=== PATIENT | female | born 1930 | race Caucasian/White ===

== ENCOUNTER 2016-05-21 08:06 | Inpatient (IN) | payer OTHER ==
[~2016-05-21] VITALS: Ht 152.4 cm; Wt 68.1 kg
[2016-05-21] MEDS ORDERED: SODIUM CHLORIDE 0.9% 1000ML 1,000 ML IV STA (08:13)
--- NOTE | 2016-05-21 08:30 | EMERGENCY ROOM VISIT NOTE ---
History Report prepared by Roby: Shira Almeida Under the Supervision of: Dr. Jerome Rosario M.D. First contact with patient: 08:08 Stated Complaint: AMS/HYPOTHERMIA History of Present Illness The patient is a 85 year old female who presents to the Emergency Room via EMS with complaints of hypothermia occurring today. The patient is blind and demented. She has a caregiver who takes care of her during the day but she is alone at night. She was last seen at baseline at 12 am this morning. She went out of the house at some point after her caregiver left. She was found outside. As per family, the patient is normally completely confused. Her grandson last saw her at the house around 12 am this morning. The patient normally does not leave the house by herself. This is the first time she has left the house by herself. Her rectal temperature in the Emergency Room was 31.9 degrees Celsius. HPI is limited secondary to history of dementia. Additional history is obtained as per Emergency Room nursing staff and family. Source of History: patient, family History Limited By: dementia Onset: today Position: other (global) Quality: other (hypothermia) Review of Systems ROS is limited secondary to history of dementia. Past Medical & Surgical Medical Problems: (1) Blind (2) Dementia (3) Diastolic congestive heart failure (4) Hypothermia Family History Diabetes mellitus Heart disease Social History Marital Status: Housing Status: lives alone Occupation Status: retired Current/Historical Medications Scheduled Furosemide (Lasix), 20 MG PO BID Potassium Chloride (Micro-K Ext Rel), 10 MEQ PO BID Allergies Coded Allergies: Penicillins (Verified Allergy, Unknown, 05/21/16) Physical Exam Vital Signs Date Time Temp Pulse Resp B/P Pulse Ox O2 Delivery O2 Flow Rate FiO2 05/21/16 11:36 35.2 67 16 121/56 100 Nasal Cannula 05/21/16 11:17 34.9 72 20 135/49 100 Nasal Cannula 2.0 05/21/16 11:05 34.6 89 18 117/61 95 Nasal Cannula 2.0 05/21/16 10:38 34.0 74 20 109/79 96 Room Air 05/21/16 10:20 33.6 62 25 94 05/21/16 10:15 136/64 05/21/16 10:05 33.3 67 25 96 05/21/16 10:01 131/69 05/21/16 09:50 32.9 71 26 97 05/21/16 09:49 32.9 05/21/16 09:45 150/88 05/21/16 09:36 33.4 35 05/21/16 09:30 129/69 05/21/16 09:21 33.0 72 21 95 05/21/16 09:15 147/80 05/21/16 09:06 32.7 71 21 98 05/21/16 09:03 148/78 05/21/16 09:03 32.8 65 20 148/78 100 Room Air 05/21/16 08:44 84 05/21/16 08:36 32.0 73 26 99 05/21/16 08:18 31.8 123 20 119/84 100 Room Air 05/21/16 08:16 119/84 Physical Exam GENERAL: Patient is disoriented, confused, nonsensical verbal. SKIN: No cyanosis or rash. Bruises on the right foot, lateral medial malleolus, right knee, end of her nose. Significant erythema under both breasts and right groin. HEENT: Normal head, pupils equal, reactive to light and accommodation. Ears normal. Oral cavity and posterior pharynx appear normal. Neck: Without adenopathy, no neck vein distention. LUNGS: Clear to auscultation. No wheezes, no rales, no rhonchi. HEART: No murmurs. No gallops. No rubs ABDOMEN: Soft, nontender. No masses, no rebound, no hepatomegaly or splenomegaly. EXTREMITIES: Patient has some pain with movement of either leg. No pedal or pretibial edema. No calf or thigh tenderness. NEUROLOGIC: Cranial nerves II-XII within normal limits. No gross motor sensory function deficits. Medical Decision & Procedures ER Provider Diagnostic Interpretation: X-ray results as stated below per my interpretation and radiologist interpretation. CT results as stated below per my review and radiologist interpretation: CT OF THE CERVICAL SPINE CLINICAL HISTORY: Neck pain status post trauma COMPARISON STUDY: 12/14/2011 CT DOSE: TECHNIQUE: CT scan of the cervical spine was performed from the skull base to the thoracic inlet. Images are reviewed in the axial, sagittal, and coronal planes. IV contrast was not administered for this examination. FINDINGS: The visualized portions of the lung apices reveal no evidence of pneumothorax. The prevertebral soft tissues are normal. No fractures or subluxations are visualized. There are multilevel degenerative changes. 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 IMPRESSION: No evidence of acute fracture or traumatic subluxation. Electronically signed by: Gonzalez Bates M.D. 05/21/2016 9:05 AM Dictated Date/Time: 05/21/2016 9:02 AM CHEST ONE VIEW PORTABLE CLINICAL HISTORY: Fall. COMPARISON STUDY: Chest radiograph December 14, 2011. FINDINGS: A right shoulder arthroplasty is noted. Mild elevation of the right hemidiaphragm is unchanged. Moderate cardiomegaly is unchanged. There is no evidence of pulmonary edema. There is no consolidation to suggest pneumonia. Hazy left basilar opacity is unchanged and may reflect epicardial fat pad. IMPRESSION: No acute cardiopulmonary findings. No change in appearance of the chest. Electronically signed by: Roverto Guillen M.D. 05/21/2016 9:00 AM Dictated Date/Time: 05/21/2016 8:[address] OF THE HEAD WITHOUT CONTRAST CLINICAL HISTORY: Fall. Altered mental status. COMPARISON STUDY: Head CT December 14, 2011. CT DOSE: 1115.95 mGy.cm TECHNIQUE: Helical axial images of the head were obtained without IV contrast. Automated exposure control was utilized for the study. FINDINGS: No acute intracranial hemorrhage, midline shift or mass effect is present. Ventricular system is stable. Basilar cisterns are patent. There are no extra axial collections. Moderate white matter hypodensities suggest small vessel disease. There are no findings to suggest acute dural sinus thrombosis or acute territorial infarct. There is no calvarial fracture. IMPRESSION: 1. No acute intracranial findings. 2. No calvarial fracture. 3. Study mildly compromised by motion artifact. Electronically signed by: Roverto Guillen M.D. 05/21/2016 9:06 AM Dictated Date/Time: 05/21/2016 9:02 AM LEFT KNEE 1 OR 2 VIEWS ROUTINE CLINICAL HISTORY: Left knee pain status post trauma COMPARISON: None. DISCUSSION: There are moderate osteophytic changes. No acute fractures are visualized. There are no dislocations. There is quadriceps insertional calcification at the superior patellar level. There is a small dorsal patellar spur. There are vascular calcifications. IMPRESSION: Mild degenerative change. No acute fractures. Electronically signed by: Gonzalez Bates M.D. 05/21/2016 9:02 AM Dictated Date/Time: 05/21/2016 9:02 AM RIGHT KNEE 1 OR 2 VIEWS ROUTINE CLINICAL HISTORY: Right knee pain status post trauma COMPARISON: None. DISCUSSION: There are moderate osteoarthritic changes present with narrowing medial joint compartment. No acute fractures are visualized. There is a tiny dorsal patellar spur. IMPRESSION: Osteoarthritic changes. No acute fractures identified. Electronically signed by: Gonzalez Bates M.D. 05/21/2016 9:01 AM Dictated Date/Time: 05/21/2016 9:00 AM Laboratory Results 05/21/16 08:25 Red Blood Count 5.06, Mean Corpuscular Volume 91.5, Mean Corpuscular Hemoglobin 30.4, Mean Corpuscular Hemoglobin Concent 33.3, Mean Platelet Volume 12.0, Neutrophils (%) (Auto) 81.8, Lymphocytes (%) (Auto) 11.7, Monocytes (%) (Auto) 5.5, Eosinophils (%) (Auto) 0.3, Basophils (%) (Auto) 0.1, Neutrophils # (Auto) 20.23, Lymphocytes # (Auto) 2.90, Monocytes # (Auto) 1.36, Eosinophils # (Auto) 0.08, Basophils # (Auto) 0.03 05/21/16 08:25 Test 05/21/16 08:25 05/21/16 09:30 White Blood Count 24.74 K/uL (4.8-10.8) Red Blood Count 5.06 M/uL (4.2-5.4) Hemoglobin 15.4 g/dL (12.0-16.0) Hematocrit 46.3 % (37-47) Mean Corpuscular Volume 91.5 fL (80-100) Mean Corpuscular Hemoglobin 30.4 pg (25-34) Mean Corpuscular Hemoglobin Concent 33.3 g/dl (32-36) Platelet Count 257 K/uL (130-400) Mean Platelet Volume 12.0 fL (7.4-10.4) Neutrophils (%) (Auto) 81.8 % Lymphocytes (%) (Auto) 11.7 % Monocytes (%) (Auto) 5.5 % Eosinophils (%) (Auto) 0.3 % Basophils (%) (Auto) 0.1 % Neutrophils # (Auto) 20.23 K/uL (1.4-6.5) Lymphocytes # (Auto) 2.90 K/uL (1.2-3.4) Monocytes # (Auto) 1.36 K/uL (0.11-0.59) Eosinophils # (Auto) 0.08 K/uL (0-0.5) Basophils # (Auto) 0.03 K/uL (0-0.2) RDW Standard Deviation 52.6 fL (36.4-46.3) RDW Coefficient of Variation 15.8 % (11.5-14.5) Immature Granulocyte % (Auto) 0.6 % Immature Granulocyte # (Auto) 0.14 K/uL (0.00-0.02) Spherocytes 1+ Prothrombin Time 11.2 SECONDS (9.0-12.0) Prothromb Time International Ratio 1.0 (0.9-1.1) Activated Partial Thromboplast Time 24.4 SECONDS (21.0-31.0) Partial Thromboplastin Ratio 0.9 Anion Gap 13.0 mmol/L (3-11) Est Creatinine Clear Calc Drug Dose 31.0 ml/min Estimated GFR () 52.3 Estimated GFR (Non- 45.1 BUN/Creatinine Ratio 17.5 (10-20) Calcium Level 8.7 mg/dl (8.5-10.1) Total Bilirubin 0.4 mg/dl (0.2-1) Aspartate Amino Transf (AST/SGOT) 22 U/L (15-37) Alanine Aminotransferase (ALT/SGPT) 17 U/L (12-78) Alkaline Phosphatase 109 U/L (45-117) Total Protein 7.8 gm/dl (6.4-8.2) Albumin 3.6 gm/dl (3.4-5.0) Globulin 4.2 gm/dl (2.5-4.0) Albumin/Globulin Ratio 0.9 (0.9-2) Thyroid Stimulating Hormone (TSH) 5.380 uIu/ml (0.300-4.500) Urine Color YELLOW Urine Appearance CLEAR (CLEAR) Urine pH 5.0 (4.5-7.5) Urine Specific Glover 1.013 (1.000-1.030) Urine Protein NEG (NEG) Urine Glucose (UA) TRACE (NEG) Urine Ketones TRACE (NEG) Urine Occult Blood TRACE (NEG) Urine Nitrite POS (NEG) Urine Bilirubin NEG (NEG) Urine Urobilinogen NEG (NEG) Urine Leukocyte Esterase TRACE (NEG) Urine WBC (Auto) 1-5 /hpf (0-5) Urine RBC (Auto) 0-4 /hpf (0-4) Urine Hyaline Casts (Auto) 1-5 /lpf (0-5) Urine Epithelial Cells (Auto) 5-10 /lpf (0-5) Urine Bacteria (Auto) 4+ (NEG) Laboratory results as stated above per my review. Medications Administered Medications (Trade) Dose Ordered Sig/Macy Route Start Time Stop Time Status Last Admin Dose Admin Sodium Chloride (Nss 1000ml) 1,000 ml @ 300 mls/hr Q3H20M STAT IV 05/21/16 08:13 05/21/16 11:32 DC 05/21/16 08:13 300 MLS/HR ECG Indication: other (Hypothermia) Rate (beats per minute): 75 Rhythm: sinus rhythm Findings: nonspecific-ST abn, no ectopy, other (Artifact due to shaking) ED Course 0808: Past medical records reviewed. The patient was evaluated in room B01. A complete history and physical examination was performed. The patient's rectal temperature was 31.9 degrees Celsius. 0813: Sodium Chloride 1000 ml @ 300 mls/hr IV 1042: Upon reevaluation, the patient is doing better. I discussed today's findings with the patient's family. They verbalized agreement of the treatment plan. I spoke with Dr. Santiago of the [facility] to evaluate the patient for further management. Medical Decision Differential diagnosis includes but is not limited to hypothermia, fall, closed head injury, multiple fractures, multiple contusions. Multiple labs, EKG, imaging were obtained. Please see above. The patient was monitored closely and had a rectal probe for close temperature monitoring. Her core temperature did slowly rise. White count is markedly elevated. The patient may have an early urinary tract infection. She is multiple contusions but no definite fractures. The patient has long-standing dementia. The patient will require further evaluation in the hospital. I discussed care with the patient and multiple family members. I also discussed care with the hospitalist. Consults Time Called: 1040 Consulting Physician[facility] Returned Call: [address] Santiago of the [facility] Hospitalist Service to evaluate the patient for further management. Impression Primary Impression: Hypothermia Additional Impressions: Altered mental status Leukocytosis Elevated troponin Hypothyroid Scribe Attestation The scribe's documentation has been prepared under my direction and personally reviewed by me in its entirety. I confirm that the note above accurately reflects all work, treatment, procedures, and medical decision making performed by me. Departure Information Dispostion Being Evaluated By Hospitalist Referrals Alyx Mahmood, NavarroR.N.P (PCP) Problem Qualifiers
[2016-05-21 08:41] LABS: HEMATOCRIT 46.3 % (37-47); MEAN CELL VOLUME 91.5 fL (80-100); MEAN CORPUSCULAR HEMOGLOBIN 30.4 pg (25-34); MEAN CORPUSCULAR HGB CONC 33.3 g/dl (32-36); PLATELET COUNT 257 K/uL (130-400); RED BLOOD COUNT 5.06 M/uL (4.2-5.4); WHITE BLOOD COUNT 24.74 K/uL (4.8-10.8)
[2016-05-21 08:53] LABS: PARTIAL THROMBOPLASTIN RATIO 0.9; PROTHROMBIN TIME (PATIENT) 11.2 SECONDS (9.0-12.0)
[2016-05-21 08:58] LABS: BUN/CREATININE RATIO 17.5 (10-20); CALCIUM 8.7 mg/dl (8.5-10.1); CREATININE 1.1 mg/dl (0.60-1.20); POTASSIUM 4.1 mmol/L (3.5-5.1)
--- NOTE | 2016-05-21 09:01 | DIAGNOSTIC IMAGING REPORT ---
CHEST ONE VIEW PORTABLE CLINICAL HISTORY: Fall. COMPARISON STUDY: Chest radiograph December 14, 2011. FINDINGS: A right shoulder arthroplasty is noted. Mild elevation of the right hemidiaphragm is unchanged. Moderate cardiomegaly is unchanged. There is no evidence of pulmonary edema. There is no consolidation to suggest pneumonia. Hazy left basilar opacity is unchanged and may reflect epicardial fat pad. IMPRESSION: No acute cardiopulmonary findings. No change in appearance of the chest. Electronically signed by: Roverto Guillen M.D. 05/21/2016 9:00 AM Dictated Date/Time: 05/21/2016 8:57 AM
--- NOTE | 2016-05-21 09:03 | DIAGNOSTIC IMAGING REPORT ---
LEFT KNEE 1 OR 2 VIEWS ROUTINE CLINICAL HISTORY: Left knee pain status post trauma COMPARISON: None. DISCUSSION: There are moderate osteophytic changes. No acute fractures are visualized. There are no dislocations. There is quadriceps insertional calcification at the superior patellar level. There is a small dorsal patellar spur. There are vascular calcifications. IMPRESSION: Mild degenerative change. No acute fractures. Electronically signed by: Gonzalez Bates M.D. 05/21/2016 9:02 AM Dictated Date/Time: 05/21/2016 9:02 AM
--- NOTE | 2016-05-21 09:03 | DIAGNOSTIC IMAGING REPORT ---
RIGHT KNEE 1 OR 2 VIEWS ROUTINE CLINICAL HISTORY: Right knee pain status post trauma COMPARISON: None. DISCUSSION: There are moderate osteoarthritic changes present with narrowing medial joint compartment. No acute fractures are visualized. There is a tiny dorsal patellar spur. IMPRESSION: Osteoarthritic changes. No acute fractures identified. Electronically signed by: Gonzalez Bates M.D. 05/21/2016 9:01 AM Dictated Date/Time: 05/21/2016 9:00 AM
--- NOTE | 2016-05-21 09:07 | DIAGNOSTIC IMAGING REPORT ---
CT OF THE HEAD WITHOUT CONTRAST CLINICAL HISTORY: Fall. Altered mental status. COMPARISON STUDY: Head CT December 14, 2011. CT DOSE: 1115.95 mGy.cm TECHNIQUE: Helical axial images of the head were obtained without IV contrast. Automated exposure control was utilized for the study. FINDINGS: No acute intracranial hemorrhage, midline shift or mass effect is present. Ventricular system is stable. Basilar cisterns are patent. There are no extra axial collections. Moderate white matter hypodensities suggest small vessel disease. There are no findings to suggest acute dural sinus thrombosis or acute territorial infarct. There is no calvarial fracture. IMPRESSION: 1. No acute intracranial findings. 2. No calvarial fracture. 3. Study mildly compromised by motion artifact. Electronically signed by: Roverto Guillen M.D. 05/21/2016 9:06 AM Dictated Date/Time: 05/21/2016 9:02 AM
--- NOTE | 2016-05-21 09:07 | DIAGNOSTIC IMAGING REPORT ---
CT OF THE CERVICAL SPINE CLINICAL HISTORY: Neck pain status post trauma COMPARISON STUDY: 12/14/2011 CT DOSE: TECHNIQUE: CT scan of the cervical spine was performed from the skull base to the thoracic inlet. Images are reviewed in the axial, sagittal, and coronal planes. IV contrast was not administered for this examination. FINDINGS: The visualized portions of the lung apices reveal no evidence of pneumothorax. The prevertebral soft tissues are normal. No fractures or subluxations are visualized. There are multilevel degenerative changes. 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 IMPRESSION: No evidence of acute fracture or traumatic subluxation. Electronically signed by: Gonzalez Bates M.D. 05/21/2016 9:05 AM Dictated Date/Time: 05/21/2016 9:02 AM
[2016-05-21 09:18] LABS: ALB/GLOB RATIO 0.9 (0.9-2); THYROID STIMULATING HORMONE 5.38 uIu/ml (0.300-4.500)
[2016-05-21 09:28] LABS: BASO % 0.1 %; BASO ABS # 0.03 K/uL (0-0.2); COMPLETE YES; EOS % 0.3 %; IG% 0.6 %; LYMPH % 11.7 %; MONO % 5.5 %; NEUT % 81.8 %; SPHEROCYTE 1+
[2016-05-21 09:44] LABS: MANUAL MICROSCOPIC REQUIRED? NO; REVIEW REQ? NO; URINE APPEARANCE CLEAR (CLEAR); URINE BILIRUBIN NEG (NEG); URINE COLOR YELLOW; URINE NITRITE POS (NEG); URINE SPECIFIC GRAVITY 1.013 (1.000-1.030); UROBILINOGEN NEG (NEG); ZZURINE CULT IF INDIC CATH YES
[2016-05-21] MEDS ORDERED: POLYETHYLENE (MIRALAX) 17 GM PACK PO PRN (11:45)
[2016-05-21] MEDS ORDERED: ALUMINUM/MAGNESIUM/SIMETH (MAALOX MAX) 30 ML UDC PO PRN (11:45)
[2016-05-21] MEDS ORDERED: MAGNESIUM HYDROXIDE SUSP 30 ML UDC PO PRN (11:45)
[2016-05-21] MEDS ORDERED: ONDANSETRON INJ 2 MG/ML 2 ML VIAL IV PRN (11:45)
[2016-05-21] MEDS: SODIUM CHLORIDE 0.9% 1000ML 1,000 ML IV SCH (12:00)
--- NOTE | 2016-05-21 12:31 | History and Physical ---
History & Physical Date & Time of Service: May 21, 2016 at 12:02 Chief Complaint: Ams/Hypothermia Primary Care Physician: Alyx Mahmood C.R.N.P History of Present Illness Source: family, hospital records Ms. Guallpa is a 85-year-old female with past medical history of diastolic congestive heart failure, moderate aortic stenosis, blindness, and dementia who presents to the emergency department by EMS for hypothermia. History of present illness obtained by family members at bedside and ED notes due to dementia. Patient lives at home with daytime caregivers and grandson who sleeps there at night. Patient was last seen at normal mentation at approximately midnight. She was found at 7 AM outside in [facility] and barefooted. She was laying on her right side on the road. Per family she has never wandered outside of the home at night. Her family baseline mentation is largely nonverbal with intermittent screaming of "ouch" and "what", but does not conversation. Family states she is usually oriented to self only. Family feels that she is currently at normal baseline mentation. Family states that she has been eating and drinking well at home. She is incontinent of urine. Family states she commonly has abnormal urinalysis however usually does not grow bacteria. Reports last urinary tract infection was approximately 1 year ago. She follows with Dr. Jackson for her diastolic congestive heart failure. Review of systems deferred as patient is nonverbal. Mild agitation appreciated during exam with blood pressure cuff. Otherwise, patient appears in no acute distress. In the ED, she was initiated on warm fluids and tiff hugger. Her initial temperature was 31.8 Celsius at 8 AM and has improved to 35.2 at 11:[address] of the head without acute intracranial processes. EKG reveals normal sinus rhythm and notes ST and T-wave abnormalities suggesting lateral ischemia however largely artifact. Initial troponin at 0.144. Significant laboratories show a WBC of 24.74. Urinalysis is positive for nitrites and 4+ bacteria. She will be admitted to telemetry for hypothermia and further evaluation and care. Past Medical/Surgical History Medical Problems: (1) Blind (2) Dementia (3) Diastolic congestive heart failure (4) Hypothermia Medical Problems: (1) Blind Status: Chronic (2) Dementia Status: Chronic Family History Diabetes mellitus Heart disease Social History Smoking Status: Unknown if Ever Smoked Smokeless Tobacco Use: No Alcohol Use: none Drug Use: none Marital Status: Occupational Status: retired Multi-Drug Resistant Organisms History of MDRO: No Allergies Coded Allergies: Penicillins (Verified Allergy, Unknown, 05/21/16) Home Medications Scheduled Furosemide (Lasix), 20 MG PO BID Potassium Chloride (Micro-K Ext Rel), 10 MEQ PO BID Review of Systems Review of systems deferred due to advanced dementia. See history of present illness. Physical Exam Vital Signs Date Time Temp Pulse Resp B/P Pulse Ox O2 Delivery O2 Flow Rate FiO2 05/21/16 11:36 35.2 67 16 121/56 100 Nasal Cannula 05/21/16 11:17 34.9 72 20 135/49 100 Nasal Cannula 2.0 05/21/16 11:05 34.6 89 18 117/61 95 Nasal Cannula 2.0 05/21/16 10:38 34.0 74 20 109/79 96 Room Air 05/21/16 10:20 33.6 62 25 94 05/21/16 10:15 136/64 05/21/16 10:05 33.3 67 25 96 05/21/16 10:01 131/69 05/21/16 09:50 32.9 71 26 97 05/21/16 09:49 32.9 05/21/16 09:45 150/88 05/21/16 09:36 33.4 35 05/21/16 09:30 129/69 05/21/16 09:21 33.0 72 21 95 05/21/16 09:15 147/80 05/21/16 09:06 32.7 71 21 98 05/21/16 09:03 148/78 05/21/16 09:03 32.8 65 20 148/78 100 Room Air 05/21/16 08:44 84 05/21/16 08:36 32.0 73 26 99 05/21/16 08:18 31.8 123 20 119/84 100 Room Air 05/21/16 08:16 119/84 General Appearance: WD/WN, no apparent distress Head: normocephalic, atraumatic Eyes: sclerae normal Neck: supple, no JVD, trachea midline Respiratory/Chest: normal breath sounds, no respiratory distress, no accessory muscle use, + decreased breath sounds Cardiovascular: regular rate, rhythm, no gallop, + systolic murmur Abdomen/GI: normal bowel sounds, non tender, soft Extremities/Musculoskelatal: no pedal edema, + pertinent finding (Right toes black with small lacerations appreciated; distal pulses present per doppler) Neurologic/Psych: alert Skin: + pallor Diagnostics Laboratory Results Results Past 24 Hours Test 05/21/16 08:25 05/21/16 09:30 05/21/16 10:46 Range/Units White Blood Count 24.74 4.8-10.8 K/uL Red Blood Count 5.06 4.2-5.4 M/uL Hemoglobin 15.4 12.0-16.0 g/dL Hematocrit 46.3 37-47 % Mean Corpuscular Volume 91.5 80-100 fL Mean Corpuscular Hemoglobin 30.4 25-34 pg Mean Corpuscular Hemoglobin Concent 33.3 32-36 g/dl Platelet Count 257 130-400 K/uL Mean Platelet Volume 12.0 7.4-10.4 fL Neutrophils (%) (Auto) 81.8 % Lymphocytes (%) (Auto) 11.7 % Monocytes (%) (Auto) 5.5 % Eosinophils (%) (Auto) 0.3 % Basophils (%) (Auto) 0.1 % Neutrophils # (Auto) 20.23 1.4-6.5 K/uL Lymphocytes # (Auto) 2.90 1.2-3.4 K/uL Monocytes # (Auto) 1.36 0.11-0.59 K/uL Eosinophils # (Auto) 0.08 0-0.5 K/uL Basophils # (Auto) 0.03 0-0.2 K/uL RDW Standard Deviation 52.6 36.4-46.3 fL RDW Coefficient of Variation 15.8 11.5-14.5 % Immature Granulocyte % (Auto) 0.6 % Immature Granulocyte # (Auto) 0.14 0.00-0.02 K/uL Spherocytes 1+ Prothrombin Time 11.2 9.0-12.0 SECONDS Prothromb Time International Ratio 1.0 0.9-1.1 Activated Partial Thromboplast Time 24.4 21.0-31.0 SECONDS Partial Thromboplastin Ratio 0.9 Sodium Level 142 136-145 mmol/L Potassium Level 4.1 3.5-5.1 mmol/L Chloride Level 104 98-107 mmol/L Carbon Dioxide Level 25 21-32 mmol/L Anion Gap 13.0 3-11 mmol/L Blood Urea Nitrogen 19 7-18 mg/dl Creatinine 1.10 0.60-1.20 mg/dl Est Creatinine Clear Calc Drug Dose 31.0 ml/min Estimated GFR () 52.3 Estimated GFR (Non- 45.1 BUN/Creatinine Ratio 17.5 10-20 Random Glucose 216 70-99 mg/dl Calcium Level 8.7 8.5-10.1 mg/dl Total Bilirubin 0.4 0.2-1 mg/dl Aspartate Amino Transf (AST/SGOT) 22 15-37 U/L Alanine Aminotransferase (ALT/SGPT) 17 12-78 U/L Alkaline Phosphatase 109 45-117 U/L Troponin I 0.144 0-0.045 ng/ml Total Protein 7.8 6.4-8.2 gm/dl Albumin 3.6 3.4-5.0 gm/dl Globulin 4.2 2.5-4.0 gm/dl Albumin/Globulin Ratio 0.9 0.9-2 Thyroid Stimulating Hormone (TSH) 5.380 0.300-4.500 uIu/ml Urine Color YELLOW Urine Appearance CLEAR CLEAR Urine pH 5.0 4.5-7.5 Urine Specific [place] 1.013 1.000-1.030 Urine Protein NEG NEG Urine Glucose (UA) TRACE NEG Urine Ketones TRACE NEG Urine Occult Blood TRACE NEG Urine Nitrite POS NEG Urine Bilirubin NEG NEG Urine Urobilinogen NEG NEG Urine Leukocyte Esterase TRACE NEG Urine WBC (Auto) 1-5 0-5 /hpf Urine RBC (Auto) 0-4 0-4 /hpf Urine Hyaline Casts (Auto) 1-5 0-5 /lpf Urine Epithelial Cells (Auto) 5-10 0-5 /lpf Urine Bacteria (Auto) 4+ NEG Creatine Kinase MB Ratio 0-3.0 Microbiology Results 05/21/16 Urine Culture, Received Pending Diagnostic Radiology CT OF THE HEAD WITHOUT CONTRAST CLINICAL HISTORY: Fall. Altered mental status. COMPARISON STUDY: Head CT December 14, 2011. CT DOSE: 1115.95 mGy.cm TECHNIQUE: Helical axial images of the head were obtained without IV contrast. Automated exposure control was utilized for the study. FINDINGS: No acute intracranial hemorrhage, midline shift or mass effect is present. Ventricular system is stable. Basilar cisterns are patent. There are no extra axial collections. Moderate white matter hypodensities suggest small vessel disease. There are no findings to suggest acute dural sinus thrombosis or acute territorial infarct. There is no calvarial fracture. IMPRESSION: 1. No acute intracranial findings. 2. No calvarial fracture. 3. Study mildly compromised by motion artifact. CHEST ONE VIEW PORTABLE CLINICAL HISTORY: Fall. COMPARISON STUDY: Chest radiograph December 14, 2011. FINDINGS: A right shoulder arthroplasty is noted. Mild elevation of the right hemidiaphragm is unchanged. Moderate cardiomegaly is unchanged. There is no evidence of pulmonary edema. There is no consolidation to suggest pneumonia. Hazy left basilar opacity is unchanged and may reflect epicardial fat pad. IMPRESSION: No acute cardiopulmonary findings. No change in appearance of the chest. EKG Poor data quality, interpretation may be adversely affected Normal sinus rhythm ST & T wave abnormality, consider lateral ischemia Abnormal ECG When compared with ECG of 14-DEC-2011 13:27, Premature ventricular complexes are no longer Present T wave inversion less evident in Lateral leads Impression Assessment and Plan Ms. Guallpa is a 85-year-old female with past medical history of diastolic congestive heart failure, moderate aortic stenosis, blindness, and dementia who presents to the emergency department by EMS for hypothermia. Hypothermia: - Continue bairhugger and fluid warmer with NSS at 80 mL/hr - Rectal temperature Q1H - When temperature at 36C may D/C fluid warmer and maintain fluids at 80 mL/hr Rhabdomyolysis?: 2/2 Fall - CK pending will reevaluate Urinary Tract Infection: - Ceftriaxone 1 g IV daily - Urine culture pending Elevated Troponin: - Initial troponin 0.144 - Run serial cardiac enzymes Chronic Diastolic Congestive Heart Failure: - Hold Lasix - Echocardiogram - pending - Consider cardiology consult - follows with Dr. Jackson DVT Prophylaxis: - SCDs Code Status: FULL RESUSCITATION WITHOUT INTUBATION ATTENDING ATTESTATION I have seen and examined patient this am. I have discussed plan of care in detail with VILMA and agree with plan as stated above. Patient is a 85 y.o.F PMHx of dementia and blindness who was brought in by family after being found down outside the door of her home. On admission temperature was noted to be 30.0. Patient is non- verbal. Per family patient is at baseline mental status. Patient temperature currently 36.6 Vitals-reviewed GEN- NAD CVS-RRR RESP-CTA ABD-+BS EXT- no edema Labs-reviewed Hypothermia Dementia UTI - start ceftriaxone/await urine culture - IVF hydration - fall precaution Level of Care Telemetry Resuscitation Status FULL NO MECH VENTILATION VTE Prophylaxis VTE Risk Assessment Done? Y/N: Yes Risk Level: Moderate Given or contraindicated: SCD's
[2016-05-21 12:39] LABS: CKMB/CK RATIO 1.9 (0-3.0)
[2016-05-21 13:31] VITALS: BP 136/51; PULSE 76; TEMP 36.5; O2SAT 93
[2016-05-21] MEDS ORDERED: CEFTRIAXONE SOD INJ 1 GM in DEXTROSE 5% ADD-VANTAGE 50ML 50 ML IV SCH (14:00)
[2016-05-21 15:31] VITALS: O2SAT 92; Ht 152.4 cm; Wt 68.1 kg
[2016-05-21 16:29] VITALS: BP 103/47; PULSE 63; TEMP 37.1; O2SAT 92
[2016-05-21] MEDS: ACETAMINOPHEN 325 MG TAB PO PRN (17:15)
[2016-05-21] MEDS ORDERED: PERFLUTREN LIPID MICROSPHERE (DEFINITY) IV ONE (17:24)
--- NOTE | 2016-05-21 17:55 | ECHOCARDIOGRAM REPORT ---
*NOTICE TO RECEIVING LIBERTARIAN AGENCY This information is strictly Confidential and protected under [place] law. [place] law prohibits you from making any further disclosure of this information unless further disclosure is expressly permitted by the written consent of the person to whom it pertains or is authorized by law. A general authorization for the release of medical or other information is not sufficient for this purpose. Hospital accepts no responsibility if the information is made available to any other person, INCLUDING THE PATIENT. Interpretation Summary * Name: TAHIR JORDAN Study Date: 05/21/2016 03:33 PM BP: 136/51 mmHg * Patient Location: [facility] HR: 76 * : 1930 (M/d/yyyy) Gender: Female Height: 60 in * Age: 85 yrs Ethnicity: [place] Weight: 149 lb * Ordering Physician: Marilu Beebe PA-C * Performed By: Jory Orellana RDCS * * Reason For Study: Murmurs * BSA: 1.6 m2 * Hyperdynamic left ventricular systolic function. * Left ventricular hypertrophy. * Left ventricular diastolic dysfunction. * Mild left atrial dilatation. * Probable moderate to severe aortic stenosis. * Mild tricuspid regurgitation. * Normal estimated right heart pressures. Procedure Details * A complete two-dimensional transthoracic echocardiogram was performed (2D, M-mode, Doppler and color flow Doppler). * A contrast injection of Definity was performed to improve assessment of LV function. * Contrast was injected into an intravenous site in the left arm. * One vial of Definity ultrasound contrast was diluted in normal saline to a total volume of 10 ml. A total of '2' ml of solution was administered during imaging. * Lot # [id number] of Definity utilized for procedure. * Expiration date 1 MAY 08. * The attending nurse who injected the contrast agent was Estephania Bui RN. Left Ventricle * The left ventricle is normal in size. * Mild left ventricular hypertrophy except for severe basal septal hypertrophy. * Ejection Fraction = >70 %. * The left ventricle is hyperdynamic. * A full diastolic examination was done with clinical findings of Class I diastolic dysfunction. * No regional wall motion abnormalities noted. Right Ventricle * The right ventricle is grossly normal size. * The right ventricle is not well visualized. * The right ventricular systolic function is normal. Atria * The left atrium is mildly dilated. * Right atrium not well visualized. Mitral Valve * There is severe mitral annular calcification. * There is no mitral valve stenosis. * Significant mitral regurgitation is absent. Tricuspid Valve * The tricuspid valve is not well visualized, but is grossly normal. * There is mild tricuspid regurgitation. * Right ventricular systolic pressure is normal. Aortic Valve * On 2D imaging the aortic valve is calcified and has at least moderate stenosis. The doppler exam of the valve was limited. The measured velocity and mean gradient reported are lower than would be expected. These values underestimate the true stenosis of the valve. * Moderate to severe valvular aortic stenosis. * Trace aortic regurgitation. Pulmonic Valve * The pulmonic valve is not well visualized. * The pulmonary valve is inadequately visualized, but the Doppler data is adequate for interpretation. * There is no pulmonic valvular stenosis. * There is no significant pulmonary regurgitation. Great Vessels * The aortic root is normal size. Pericardium/Pleural * There is no pericardial effusion. Great Vessels * Normal inferior vena cava diameter and respiratory variation suggests normal central venous pressure. MMode 2D Measurements and Calculations IVSd 1.3 cm LVIDd 4.0 cm LVIDs 2.2 cm LVPWd 0.91 cm IVS/LVPW 1.4 FS 45.3 % EDV(Teich) 70.5 ml ESV(Teich) 16.1 ml EF(Teich) 77.1 % EDV(cubed) 64.6 ml ESV(cubed) 10.6 ml EF(cubed) 83.6 % LV mass(C)d 143.3 grams LV mass(C)dI 87.0 grams/m\S\2 SV(Teich) 54.4 ml SI(Teich) 33.0 ml/m\S\2 SV(cubed) 54.0 ml SI(cubed) 32.8 ml/m\S\2 Ao root diam 2.9 cm Ao root area 6.7 cm\S\2 ACS 1.2 cm LA dimension 4.6 cm LA/Ao 1.6 Doppler Measurements and Calculations MV E max nam 90.7 cm/sec MV A max nam 104.8 cm/sec MV E/A 0.87 MV dec time 0.24 sec Ao V2 max 208.1 cm/sec Ao max PG 17.3 mmHg Ao max PG (full) 9.4 mmHg Ao V2 mean 138.8 cm/sec Ao mean PG 8.9 mmHg Ao V2 VTI 41.6 cm LV V1 max PG 7.9 mmHg LV V1 max 140.8 cm/sec SV(Ao) 280.1 ml SI(Ao) 170.1 ml/m\S\2 PA V2 max 84.2 cm/sec PA max PG 2.8 mmHg PA acc slope 349.0 cm/sec\S\2 PA acc time 0.11 sec TR max nam 236.2 cm/sec PA pr(Accel) 31.5 mmHg
[2016-05-21 20:00] VITALS: O2SAT 95
[2016-05-21 20:30] VITALS: BP 102/48; PULSE 56; TEMP 37.4; O2SAT 95
[2016-05-21 21:22] LABS: BUN/CREATININE RATIO 17.8 (10-20); CALCIUM 7.6 mg/dl (8.5-10.1); CKMB/CK RATIO 0.5 (0-3.0); POTASSIUM 4.5 mmol/L (3.5-5.1)
[2016-05-21 23:16] VITALS: BP 92/50; PULSE 64; TEMP 37.3; O2SAT 97
[2016-05-22] VITALS (10 sets, daily range): BP systolic 94–122; BP diastolic 42–57; PULSE 44–57; TEMP 36.9–37.3; O2SAT 93–98
[2016-05-22] MEDS: SODIUM CHLORIDE 0.9% 1000ML 1,000 ML IV SCH ×2 (01:24→13:29)
[2016-05-22] MEDS: ACETAMINOPHEN 325 MG TAB PO PRN (03:32)
[2016-05-22 06:00] LABS: HEMATOCRIT 36.1 % (37-47); MEAN CELL VOLUME 88.7 fL (80-100); MEAN CORPUSCULAR HGB CONC 32.7 g/dl (32-36); PLATELET COUNT 186 K/uL (130-400); RED BLOOD COUNT 4.07 M/uL (4.2-5.4); WHITE BLOOD COUNT 8.63 K/uL (4.8-10.8)
[2016-05-22 06:22] LABS: BUN/CREATININE RATIO 16.3 (10-20); CALCIUM 7.4 mg/dl (8.5-10.1); CREATININE 0.99 mg/dl (0.60-1.20); POTASSIUM 4.2 mmol/L (3.5-5.1)
[2016-05-22] MEDS ORDERED: [UNRECOGNIZED DRUG - REMARK] PRN (10:50)
[2016-05-22] MEDS ORDERED: KFL500 PO (11:26)
--- NOTE | 2016-05-22 11:31 | Discharge Instructions ---
Discharge Instructions Admission Admission Date: May 21, 2016 at 11:50 Admission Diagnosis: Hypothermia. Discharge Care Plan - Problem: Medical Problems: (1) Altered mental status (2) Elevated troponin (3) Hypothermia (4) Hypothyroid (5) Leukocytosis Care Plan - Goal(s): Decrease discomfort, Improve function Care Plan - Instructions: Activity Recommendations: no limitations Recommended Home Diet: DOMINGO 2GM Sodium, Regular Provider Instructions: Please follow up with your PCP in 1 week VTE Core Measure Inpt VTE Proph given/why not?: SCD's Follow Up Follow-Up: Please call [phone] and schedule and appointment with Dr. Bourne of wound care this week Home visiting nursing and wound care will be arranged PAINT BLACK AREAS WITH BETADINE AND APPLY XEROFORM TO OPEN AREAS AND COVER WITH GAUZE AND KERLIX CHANGING DAILY [place] Recommendations: Call your doctor if: * Temperature above 101 degrees * Pain not relieved by pain medicine ordered * There is increased drainage or redness from any incision * You have any unanswered questions or concerns. Your Doctors Instructions noted above were prepared by provider Marilu Robins.
--- NOTE | 2016-05-22 12:41 | CARDIOLOGY CONSULTATION ---
DATE OF CONSULTATION: 05/22/2016 DATE OF CONSULTATION: 05/22/2016. PERTINENT HISTORY: Mrs. Guallpa is an 85-year-old white female admitted yesterday with hypothermia. This consultation was ordered to assist in her cardiac management. The patient was in her usual state of health until the day of presentation. She had been seen at midnight on her day of presentation by a grandson who stays at her home. She was then found at 7 a.m. outside in her pajamas and barefooted. Temperature on arrival here was 31.8 degrees Celsius. The patient did demonstrate some sinus bradycardia during her initial time in the Emergency Room. The patient is well known to me from the outpatient setting. I have been following her because of her moderate aortic stenosis and her history of diastolic congestive heart failure. At the time of her last visit in January, we opted to perform no further echocardiograms as she was not an operative candidate due to her profound and progressive dementia. Currently, the patient is resting comfortably in bed. Her family is at the bedside. PAST MEDICAL HISTORY: 1. Hypertension. 2. Hypercholesterolemia. 3. Moderate aortic stenosis -- 1.5 cm2 -- nonoperative candidate. 4. History of diastolic congestive heart failure. 5. Progressive dementia. 6. Legal blindness. MEDICATIONS: Ceftriaxone 1 gram IV daily. ALLERGIES: PENICILLIN. SOCIAL HISTORY: The patient is a . She lives at home, but has 24-hour care. Does not use tobacco or alcohol. FAMILY HISTORY: No early coronary artery disease. REVIEW OF SYSTEMS: Unobtainable due to patient's dementia. PHYSICAL EXAMINATION: GENERAL: This is a well-developed, well-nourished elderly white female lying supine in bed without complaints. VITAL SIGNS: Blood pressure is 100/60 with a regular pulse of 60. Respiratory rate is 20. The patient is afebrile at 36.9 degrees Celsius. Saturation is 96% on room air. HEAD, EYES, EARS, NOSE, AND THROAT: Negative. NECK: Supple with delayed and prolonged carotid upstrokes. A transmitted murmur is noted bilaterally. There is no jugular venous distention. CARDIOVASCULAR EXAMINATION: Reveals a regular rhythm with a 2/6 crescendo decrescendo systolic murmur heard loudest at the base. S2 is audible at the apex. LUNGS: Clear without rales, rhonchi, or wheezes. ABDOMEN: Soft, nontender without bruits. EXTREMITIES: Reveal intact radial artery pulses bilaterally. Trace pretibial edema is noted. Right lower extremity is dressed. LABORATORY DATA: CBC notes hemoglobin 11.8, hematocrit 36.1, white count 8.6, platelet count 186,000. Electrolytes note a sodium of 144, potassium 4.2, chloride 110, bicarbonate 24, BUN 16, creatinine 0.9, glucose 102. Troponin I levels are mildly elevated at 0.144, 0.701, and 0.984. CKs were 285 on presentation with follow-up values of 1,338, 1,945, and 2,829. MB fractions were 5.5, 13.4, and 9.7 respectively. TSH level is mildly elevated at 5.8. EKG notes normal sinus rhythm with first degree AV block. There is left ventricular hypertrophy and occasional PACs. Echocardiogram notes hyperdynamic left ventricular systolic function with ejection fraction greater than 70%. There is moderate to severe aortic stenosis and left ventricular hypertrophy. alarm security or surveillance monitor notes occasional PACs. IMPRESSION: Mrs. Guallpa was admitted with hypothermia due to an accidental exposure. Her elevated CK is likely secondary to mild rhabdomyolysis. Her elevated troponin is likely secondary to her left ventricular hypertrophy and hyperdynamic systolic function. As above, she is deemed nonoperative, and therefore, we will follow conservative care. PLAN: 1. Continue current medications. 2. No further echocardiograms. 3. Conservative medical care. 4. Stable for hospital discharge from a cardiac perspective.
[2016-05-22] MEDS ORDERED: CEPHALEXIN MONOHYDRATE 500 MG CAP PO SCH (13:00)
--- NOTE | 2016-05-22 17:28 | Discharge Summary ---
Discharge Summary Date of Service May 22, 2016. Discharge Summary Admission Date: May 21, 2016 at 11:50 Discharge Date: May 22, 2016 Discharge Disposition: Home Principal Diagnosis: Hypothermia/Lindquist Bite/UTI Problems/Secondary Diagnoses: Dementia Consultations: Cardiology Medication Reconciliation New Medications: Cephalexin Monohydrate (Cephalexin) 500 Mg Cap 500 MG PO QID for 7 Days, #28 CAP Continued Medications: Furosemide (Lasix) 20 Mg Tab 20 MG PO BID Potassium Chloride (Micro-K Ext Rel) 10 Meq Capcr 10 MEQ PO BID, CAP Discharge Exam Unable to obtain due to dementia Physical Exam: General Appearance: WD/WN, no apparent distress Eyes: normal inspection ENT: normal ENT inspection Neck: supple Respiratory/Chest: chest non-tender Cardiovascular: regular rate, rhythm, no edema Abdomen / GI: normal bowel sounds, non tender, soft Extremities: normal inspection Neurologic/Psychiatric: athletic instructor II-XII nml as tested, no motor/sensory deficits , alert Skin: + pertinent finding Hospital Course Admission HPI Ms. Guallpa is a 85-year-old female with past medical history of diastolic congestive heart failure, moderate aortic stenosis, blindness, and dementia who presents to the emergency department by EMS for hypothermia. History of present illness obtained by family members at bedside and ED notes due to dementia. Patient lives at home with daytime caregivers and grandson who sleeps there at night. Patient was last seen at normal mentation at approximately midnight. She was found at 7 AM outside in [facility] and barefooted. She was laying on her right side on the road. On admission patient fond to be hypothermic and admitted to the hospitalist service Hypothermia: - Continue bairhugger and fluid warmer with NSS at 80 mL/hr - Rectal temperature Q1H - resolved at time of discharge GNR Urinary Tract Infection: - Ceftriaxone 1 g IV daily then switched to keflex at time of discharge - speciation pending at time of discharge Elevated Troponin: - Initial troponin 0.144 - cardiology consulted as pt known to Dr. Jackson - per cardiology suspect 2/2 to hypothermia Bradycardia - per cardiology is baseline - patient not candidate for PPM due to dementia Lindquist bite of 5 digits of right toe - wound care consulted - on discharge patient arranged to have wound care nursing - instructed to call for appt with wound clinic this week Chronic Diastolic Congestive Heart Failure: - Held Lasix - Echocardiogram -done DVT Prophylaxis: - SCDs Code Status: FULL RESUSCITATION WITHOUT INTUBATION Total Time Spent: Greater than 30 minutes This includes examination of the patient, discharge planning, medication reconciliation, and communication with other providers. Discharge Instructions Please refer to the electronic Patient Visit Report (Discharge Instructions) for additional information.
[2016-06-08] MEDS ORDERED: CEPH500C PO (11:04)
[2016-09-24] MEDS ORDERED: POTA10CA28 PO (08:46)
[2016-09-24] MEDS ORDERED: FURO-85 PO (08:46)
== END 2016-05-22 15:21 | disposition home health service (06) | DRG 923 ==
LOC: ENRESERVDT → ENRESERVTM → EDBD 08:06 → C.EDB 08:07 → C.2E 11:50
PROVIDERS: ADMIT Internal Medicine; ATTEND Internal Medicine
DX: T68.XXXA Hypothermia, initial encounter (principal); T33.831A Superficial frostbite of right toe(s), initial encounter; N39.0 Urinary tract infection, site not specified; I50.32 Chronic diastolic (congestive) heart failure; M62.82 Rhabdomyolysis; B96.89 Other specified bacterial agents as the cause of diseases classified elsewhere; R00.1 Bradycardia, unspecified; H54.8 Legal blindness, as defined in USA; E78.00 Pure hypercholesterolemia, unspecified; R79.89 Other specified abnormal findings of blood chemistry; D72.829 Elevated white blood cell count, unspecified; R41.82 Altered mental status, unspecified; I35.0 Nonrheumatic aortic (valve) stenosis; E03.9 Hypothyroidism, unspecified; F03.90 Unspecified dementia, unspecified severity, without behavioral disturbance, psychotic disturbance, mood disturbance, and anxiety; I44.0 Atrioventricular block, first degree; I11.0 Hypertensive heart disease with heart failure; W19.XXXA Unspecified fall, initial encounter; X58.XXXA Exposure to other specified factors, initial encounter; Z79.899 Other long term (current) drug therapy

== ENCOUNTER 2016-05-24 20:48 | Inpatient (IN) | payer OTHER ==
[~2016-05-24] VITALS: Ht 152.4 cm; Wt 66.3 kg
[~2016-05-24 20:48] MED LIST: KFL500 PO
[2016-05-24] MEDS ORDERED: FUROSEMIDE 40 MG/4 ML VIAL IV STA (21:04)
[2016-05-24] MEDS ORDERED: VANCOMYCIN INJ 1,000 MG in SODIUM CHLORIDE 0.9% 250ML 250 ML IV STA (21:21)
--- NOTE | 2016-05-24 21:22 | DIAGNOSTIC IMAGING REPORT ---
SINGLE VIEW CHEST CLINICAL HISTORY: Fall. Change in mental status. FINDINGS: An AP, portable, upright chest radiograph is compared to study dated 05/21/2016. The examination is degraded by portable technique and patient rotation. The heart is mildly enlarged and there is atherosclerotic calcification of the thoracic aorta. The pulmonary vasculature is noncongested. Chronic interstitial thickening and elevation of the right hemidiaphragm are unchanged. No airspace consolidation, pleural effusion, or pneumothorax is seen. The skeletal structures are osteopenic. The bony thorax is grossly intact. A right shoulder arthroplasty is in place. Degenerative change is noted throughout the thoracic spine. IMPRESSION: Cardiac enlargement with no acute cardiopulmonary abnormality. Electronically signed by: Quinn Flynn M.D. 05/24/2016 9:20 PM Dictated Date/Time: 05/24/2016 9:19 PM
[2016-05-24 22:11] LABS: URINE APPEARANCE CLEAR (CLEAR); URINE BILIRUBIN NEG (NEG); URINE COLOR YELLOW; URINE NITRITE NEG (NEG); URINE PH 6.5 (4.5-7.5); URINE SPECIFIC GRAVITY 1.006 (1.000-1.030); UROBILINOGEN NEG (NEG); ZZURINE CULT IF INDIC CATH NO
--- NOTE | 2016-05-24 22:12 | DIAGNOSTIC IMAGING REPORT ---
ULTRASOUND RIGHT LOWER EXTREMITY VENOUS CLINICAL HISTORY: Right leg swelling. COMPARISON STUDY: No priors. TECHNIQUE: Real-time, grayscale, and color Doppler sonography of the deep veins of the right lower extremity was performed from the inguinal crease to the calf. Compression and augmentation were utilized. FINDINGS: There is no sonographic evidence of deep venous thrombosis identified in the right lower extremity. The common femoral, superficial femoral, and popliteal veins are patent and normally compressible. The greater saphenous vein and the profunda femoris vein at the junction with the common femoral vein are clear. The visualized calf veins are patent. IMPRESSION: There is no sonographic evidence of deep venous thrombosis identified in the right lower extremity. Electronically signed by: Quinn Flynn M.D. 05/24/2016 10:10 PM Dictated Date/Time: 05/24/2016 10:10 PM
[2016-05-24 22:16] LABS: MANUAL MICROSCOPIC REQUIRED? NO; REVIEW REQ? NO
[2016-05-24 22:20] LABS: BASO % 0.2 %; BASO ABS # 0.03 K/uL (0-0.2); COMPLETE YES; EOS % 0.8 %; HEMATOCRIT 44.1 % (37-47); IG% 0.4 %; LYMPH % 4.4 %; LYMPH ABS # 0.61 K/uL (1.2-3.4); MEAN CELL VOLUME 90.7 fL (80-100); MEAN CORPUSCULAR HEMOGLOBIN 29.8 pg (25-34); MEAN CORPUSCULAR HGB CONC 32.9 g/dl (32-36); MEAN PLATELET VOLUME 11.7 fL (7.4-10.4); MONO % 7.7 %; NEUT % 86.5 %; PLATELET COUNT 236 K/uL (130-400); RED BLOOD COUNT 4.86 M/uL (4.2-5.4); WHITE BLOOD COUNT 13.93 K/uL (4.8-10.8)
[2016-05-24 22:29] LABS: PROTHROMBIN TIME (PATIENT) 10.7 SECONDS (9.0-12.0)
[2016-05-24 22:30] LABS: POINT OF CARE TROPONIN I 0.1 ng/ml (0-0.045)
[2016-05-24 22:40] LABS: BUN/CREATININE RATIO 12.9 (10-20); CALCIUM 8.3 mg/dl (8.5-10.1)
--- NOTE | 2016-05-24 22:41 | EMERGENCY ROOM VISIT NOTE ---
History Report prepared by Roby: Elvie Lamar Under the Supervision of: Dr. Rene Diaz M.D. First contact with patient: 20:54 Chief Complaint: RESPIRATORY PROBLEMS Stated Complaint: SOB History of Present Illness The patient is a 85 year old female who presents to the Emergency Room with complaints of worsening respiratory problems since yesterday. Per son, the patient had recent exposure to the cold when she wandered outside in the middle of the night 3 days ago. She was admitted for frostbite and hypothermia. She was discharged home 2 days ago. Family noticed that she was wheezing last night. This morning she seemed to be more short of breath than usual. The home health nurse came this morning and listened to her lungs and thought they sounded clear. The patient's son states that her symptoms have worsened throughout the day. He reports a slight cough. He denies fever. The patient is not on oxygen at home. She had frostbite of her right foot and she has some swelling of her right leg that her son states has improved since yesterday. She is currently on Keflex for a UTI. She does not have any history of COPD. Source of History: patient, family (son) History Limited By: dementia Onset: yesterday Position: chest (respiratory) Quality: other (wheezing) Timing: worsening Associated Symptoms: + cough, No fevers Review of Systems Limited ROS secondary to dementia. Past Medical & Surgical Medical Problems: (1) Blind (2) Dementia (3) Diastolic congestive heart failure (4) Hypothermia Family History Diabetes mellitus Heart disease Social History Smoking Status: Never Smoker Drug Use: none Marital Status: Housing Status: lives alone Occupation Status: retired Current/Historical Medications Scheduled Cephalexin Monohydrate (Cephalexin), 500 MG PO QID Furosemide (Lasix), 20 MG PO BID Potassium Chloride (Micro-K Ext Rel), 10 MEQ PO BID Allergies Coded Allergies: Penicillins (Verified Allergy, Unknown, 05/24/16) Physical Exam Vital Signs Date Time Temp Pulse Resp B/P Pulse Ox O2 Delivery O2 Flow Rate FiO2 05/24/16 22:22 77 26 142/69 99 Room Air 05/24/16 21:12 95 Room Air 05/24/16 21:06 95 Room Air 05/24/16 21:00 89 05/24/16 20:53 37.7 90 29 127/78 95 Room Air Physical Exam Constitutional: Vital signs reviewed. Eyes: Conjunctiva are noninjected. ENT: Pharynx is clear without erythema or exudate. Mucous membranes are moist. Neck supple without meningeal signs. Respiratory: Diffuse rhonchi bilaterally. Breath sounds are equal bilaterally. Cardiovascular: Regular rate and rhythm. No rubs or gallops. GI: Soft, nondistended and nontender. Bowel sounds are present. Musculoskeletal: Swelling to the right leg. Erythema and increased warmth to the dorsum of the foot extending up into the lower right leg. Integumentary: No cyanosis. Neurological: The patient is awake and alert. No focal deficits. Psychiatric: Unable to assess. Medical Decision & Procedures ER Provider Diagnostic Interpretation: Radiology results as stated below per my review and the radiologist's interpretation: ULTRASOUND RIGHT LOWER EXTREMITY VENOUS CLINICAL HISTORY: Right leg swelling. COMPARISON STUDY: No priors. TECHNIQUE: Real-time, grayscale, and color Doppler sonography of the deep veins of the right lower extremity was performed from the inguinal crease to the calf. Compression and augmentation were utilized. FINDINGS: There is no sonographic evidence of deep venous thrombosis identified in the right lower extremity. The common femoral, superficial femoral, and popliteal veins are patent and normally compressible. The greater saphenous vein and the profunda femoris vein at the junction with the common femoral vein are clear. The visualized calf veins are patent. IMPRESSION: There is no sonographic evidence of deep venous thrombosis identified in the right lower extremity. Electronically signed by: Quinn Flynn M.D. 05/24/2016 10:10 PM Dictated Date/Time: 05/24/2016 10:10 PM SINGLE VIEW CHEST CLINICAL HISTORY: Fall. Change in mental status. FINDINGS: An AP, portable, upright chest radiograph is compared to study dated 05/21/2016. The examination is degraded by portable technique and patient rotation. The heart is mildly enlarged and there is atherosclerotic calcification of the thoracic aorta. The pulmonary vasculature is noncongested. Chronic interstitial thickening and elevation of the right hemidiaphragm are unchanged. No airspace consolidation, pleural effusion, or pneumothorax is seen. The skeletal structures are osteopenic. The bony thorax is grossly intact. A right shoulder arthroplasty is in place. Degenerative change is noted throughout the thoracic spine. IMPRESSION: Cardiac enlargement with no acute cardiopulmonary abnormality. Electronically signed by: Quinn Flynn M.D. 05/24/2016 9:20 PM Dictated Date/Time: 05/24/2016 9:19 PM Laboratory Results 05/24/16 21:55 Red Blood Count 4.86, Mean Corpuscular Volume 90.7, Mean Corpuscular Hemoglobin 29.8, Mean Corpuscular Hemoglobin Concent 32.9, Mean Platelet Volume 11.7, Neutrophils (%) (Auto) 86.5, Lymphocytes (%) (Auto) 4.4, Monocytes (%) (Auto) 7.7, Eosinophils (%) (Auto) 0.8, Basophils (%) (Auto) 0.2, Neutrophils # (Auto) 12.06, Lymphocytes # (Auto) 0.61, Monocytes # (Auto) 1.07, Eosinophils # (Auto) 0.11, Basophils # (Auto) 0.03 05/24/16 21:55 Test 05/24/16 21:45 05/24/16 21:55 05/24/16 22:11 05/24/16 22:12 Urine Color YELLOW Urine Appearance CLEAR (CLEAR) Urine pH 6.5 (4.5-7.5) Urine Specific [place] 1.006 (1.000-1.030) Urine Protein NEG (NEG) Urine Glucose (UA) TRACE (NEG) Urine Ketones NEG (NEG) Urine Occult Blood NEG (NEG) Urine Nitrite NEG (NEG) Urine Bilirubin NEG (NEG) Urine Urobilinogen NEG (NEG) Urine Leukocyte Esterase NEG (NEG) Urine WBC (Auto) 0 /hpf (0-5) Urine RBC (Auto) 0-4 /hpf (0-4) Urine Hyaline Casts (Auto) 0 /lpf (0-5) Urine Epithelial Cells (Auto) 10-20 /lpf (0-5) Urine Bacteria (Auto) NEG (NEG) White Blood Count 13.93 K/uL (4.8-10.8) Red Blood Count 4.86 M/uL (4.2-5.4) Hemoglobin 14.5 g/dL (12.0-16.0) Hematocrit 44.1 % (37-47) Mean Corpuscular Volume 90.7 fL (80-100) Mean Corpuscular Hemoglobin 29.8 pg (25-34) Mean Corpuscular Hemoglobin Concent 32.9 g/dl (32-36) Platelet Count 236 K/uL (130-400) Mean Platelet Volume 11.7 fL (7.4-10.4) Neutrophils (%) (Auto) 86.5 % Lymphocytes (%) (Auto) 4.4 % Monocytes (%) (Auto) 7.7 % Eosinophils (%) (Auto) 0.8 % Basophils (%) (Auto) 0.2 % Neutrophils # (Auto) 12.06 K/uL (1.4-6.5) Lymphocytes # (Auto) 0.61 K/uL (1.2-3.4) Monocytes # (Auto) 1.07 K/uL (0.11-0.59) Eosinophils # (Auto) 0.11 K/uL (0-0.5) Basophils # (Auto) 0.03 K/uL (0-0.2) RDW Standard Deviation 52.9 fL (36.4-46.3) RDW Coefficient of Variation 15.9 % (11.5-14.5) Immature Granulocyte % (Auto) 0.4 % Immature Granulocyte # (Auto) 0.05 K/uL (0.00-0.02) Prothrombin Time 10.7 SECONDS (9.0-12.0) Prothromb Time International Ratio 1.0 (0.9-1.1) Activated Partial Thromboplast Time 26.8 SECONDS (21.0-31.0) Partial Thromboplastin Ratio 1.0 Anion Gap 13.0 mmol/L (3-11) Est Creatinine Clear Calc Drug Dose 34.6 ml/min Estimated GFR () 58.7 Estimated GFR (Non- 50.6 BUN/Creatinine Ratio 12.9 (10-20) Calcium Level 8.3 mg/dl (8.5-10.1) Alanine Aminotransferase (ALT/SGPT) 39 U/L (12-78) Albumin 3.3 gm/dl (3.4-5.0) Bedside Lactic Acid Venous 3.23 mmol/L (0.90-1.70) Bedside Troponin I 0.100 ng/ml (0-0.045) UB-Zvl-X-Type Natriuretic Peptide 3576 pg/ml (0-1800) Test 05/24/16 22:20 05/24/16 22:33 Laboratory results as reviewed by me. Medications Administered Medications (Trade) Dose Ordered Sig/Macy Route Start Time Stop Time Status Last Admin Dose Admin Furosemide 40 mg 40 mg NOW STAT IV 05/24/16 21:04 05/24/16 21:10 DC 05/24/16 21:32 40 MG Vancomycin HCl/ Sodium Chloride (Vancomycin Inj/ Nss 250ml) 270 ml @ 125 mls/hr NOW STAT IV 05/24/16 21:21 05/24/16 23:30 05/24/16 22:16 125 MLS/HR ECG Indication: SOB/dyspnea Rate (beats per minute): 85 Rhythm: normal sinus Findings: nonspecific-ST abn, no ectopy, other (LVH) ED Course 2054: The patient was evaluated in room B7. A complete history and physical exam was performed. 2103: Lasix 40 mg IV 2120: Vancomycin HCl 1000 mg/Sodium Chloride 270 ml @ 125 mls/hr IV 2156: I reassessed the patient at this time. Lab was in the room drawing blood, and US was at the bedside. 2212: I reassessed the patient. She is doing well. Her labs are pending. I discussed the results and treatment plan with the patient's family. I answered all pertaining questions that they had. They expressed understanding and verbalized agreement. 2232: I spoke with Dr. Paulson. We discussed the patients results and treatment plan. The patient will be evaluated by the [facility] for further management. Medical Decision This is a an 85-year-old female presents with fever and shortness of breath. Differential diagnosis includes pneumonia, sepsis, CHF exacerbation, DVT, cellulitis. I did perform a limited focused review of portions of the patient' s old chart on the electronic medical record. The patient was admitted on May 21 for hypothermia, frostbite, and a UTI. She has a history of diastolic CHF, moderate aortic stenosis, and dementia. Her troponin was elevated at 0.14 at that time. I did evaluate the patient as noted above. I did obtain history from the patient's family due to the patient's dementia. She is presenting with increased respiratory difficulty throughout the day. She is febrile here and appears to have an infection to her right leg where she suffered frostbite on her last admission. IV access was established. The patient was placed on a continuous lead mason tender. She was given Lasix IV. I did order and personally review the patient's 12-lead EKG and chest x-ray as described above. Her chest x-ray does not show any pneumonia or pulmonary edema. Blood cultures were obtained. I did order and review the patient's blood work as noted in the electronic medical record. Her white blood cell count is elevated. Lactic acid is also elevated. Troponin is slightly elevated. I did treat the patient with vancomycin IV. I did order a Doppler ultrasound of the right leg. I did review the images myself as well as the radiology report as described above. There is no evidence of DVT. I did discuss the case with the hospitalist and porter sample case. Consults Time Called: 2220 Consulting Physician: Dr. Paulson Returned Call: [address] Paulson. We discussed the patients results and treatment plan. The patient will be evaluated by the [facility] for further management. Impression Primary Impression: Cellulitis of right leg Additional Impressions: Acute exacerbation of CHF (congestive heart failure) Elevated troponin I level Scribe Attestation The scribe's documentation has been prepared under my direct and personally reviewed by me in its entirety. I confirm that the note above accurately reflects all work, treatment, procedures, and medical decision making performed by me. Departure Information Dispostion Being Evaluated By Hospitalist Referrals Alyx Mahmood, C.R.N.P (PCP) Patient Instructions My [facility] Problem Qualifiers Additional Impressions: Acute exacerbation of CHF (congestive heart failure) Congestive heart failure type: unspecified congestive heart failure type Qualified Codes: I50.9 - Heart failure, unspecified
[2016-05-24 22:43] LABS: ALB/GLOB RATIO 0.8 (0.9-2)
[2016-05-24] MEDS ORDERED: CEFEPIME IV 2,000 MG in DEXTROSE 5% 100ML 100 ML IV STA (23:21)
[2016-05-24] MEDS ORDERED: SODIUM CHLORIDE 0.9% 500ML 500 ML IV STA (23:47)
[2016-05-24] MEDS ORDERED: ACETAMINOPHEN IV 650 MG in EMPTY BAG 0 ML IV STA (23:59)
[2016-05-25] VITALS (14 sets, daily range): BP systolic 101–128; BP diastolic 58–74; PULSE 58–80; TEMP 36.3–38; O2SAT 87–98; Ht 152.4 cm; Wt 66.3 kg
[2016-05-25] MEDS ORDERED: ACETAMINOPHEN IV 650 MG in EMPTY BAG 0 ML IV PRN
[2016-05-25] MEDS ORDERED: ACETAMINOPHEN 1000 MG/100 ML IV IV ONE (00:06)
--- NOTE | 2016-05-25 01:42 | History and Physical ---
History & Physical Date & Time of Service: May 24, 2016 at 23:32 Chief Complaint: SOB Primary Care Physician: Alyx Mahmood C.R.N.P History of Present Illness Source: patient, family (Sons - Sterling and Vincenzo (Lyle), daughter in law (Tara)), hospital records Mrs Guallpa is an 85 year old female with moderate to severe aortic stenosis, dementia, legally blind and diastolic heart failure who presents with 1 day history of shortness of breath, productive cough and altered mental consciousness. She was recently admitted to [facility] from -22 May for frostbite and UTI (Rx with Keflex). On 23 May she started having increasing a productive cough and family heard more rattling in her chest. She was evaluated by the home health nurse the following morning who felt her lungs were clear. However she became more short of breath and wheezy throughout the day and her family noted increased redness of her right lower leg so brought her to the ER. At baseline she is legally blind due to age related macular degeneration (both dry and wet), she walks with a walker, is able to feed herself but has to be helped with where the food is. She is mostly non verbal and says "ouch" when any part of her body is pressed. Her family feel she is currently off her baseline. She lives at home with daytime carers and a grandson who sleeps there at night. There is always someone around with her at home. She is usually incontinent of urine. In the ER she was started on vancomycin for cellulitis of right lower leg. Given Lasix for shortness of breath. US for DVT was negative. She will be admitted to telemetry for cellulitis (failed outpatient treatment with keflex) and sepsis (raised lactic acid) and further evaluation and care. Past Medical/Surgical History Medical Problems: Legally blind - age related macular degeneration Aortic stenosis - conservative management only Frostbite Hypothermia Diastolic congestive heart failure Hypertension Hyperlipidemia Family History Diabetes mellitus Heart disease Social History Smoking Status: Never Smoker Drug Use: none Marital Status: Housing status: lives with family Occupational Status: retired Multi-Drug Resistant Organisms History of MDRO: No Allergies Coded Allergies: Penicillins (Verified Allergy, Unknown, 05/24/16) Home Medications Scheduled Cephalexin Monohydrate (Cephalexin), 500 MG PO QID Furosemide (Lasix), 20 MG PO BID Potassium Chloride (Micro-K Ext Rel), 10 MEQ PO BID Review of Systems Patient unable to give ROS due to dementia and AMS 10 systems review with family otherwise negative other than that in HPI Physical Exam Vital Signs Date Time Temp Pulse Resp B/P Pulse Ox O2 Delivery O2 Flow Rate FiO2 05/24/16 22:22 77 26 142/69 99 Room Air 05/24/16 21:12 95 Room Air 05/24/16 21:06 95 Room Air 05/24/16 21:00 89 05/24/16 20:53 37.7 90 29 127/78 95 Room Air General Appearance: WD/WN, no apparent distress Neck: supple, no JVD Respiratory/Chest: chest non-tender, + decreased breath sounds (base), + accessory muscle use (slight), + crackles (base), + rhonchi (anteriorly), + wheezing (expiratory anteriorly) Cardiovascular: regular rate, rhythm, normal peripheral pulses (PT and DP pulses strong in cellulitic right leg), + systolic murmur Abdomen/GI: normal bowel sounds, soft, + tenderness (says ouch but says this everywhere she is touched) Extremities/Musculoskelatal: no pedal edema (left sided), + swelling (right calf), + pertinent finding (erythematous right lower limb consistent with cellulitis) Neurologic/Psych: + pertinent finding (GCS 10, reduced for verbal, eye and movement) Skin: + pertinent finding (cellulitis on right lower leg as above) Diagnostics Laboratory Results Results Past 24 Hours Test 05/24/16 21:45 05/24/16 21:55 05/24/16 22:11 05/24/16 22:12 Range/Units Urine Color YELLOW Urine Appearance CLEAR CLEAR Urine pH 6.5 4.5-7.5 Urine Specific [place] 1.006 1.000-1.030 Urine Protein NEG NEG Urine Glucose (UA) TRACE NEG Urine Ketones NEG NEG Urine Occult Blood NEG NEG Urine Nitrite NEG NEG Urine Bilirubin NEG NEG Urine Urobilinogen NEG NEG Urine Leukocyte Esterase NEG NEG Urine WBC (Auto) 0 0-5 /hpf Urine RBC (Auto) 0-4 0-4 /hpf Urine Hyaline Casts (Auto) 0 0-5 /lpf Urine Epithelial Cells (Auto) 10-20 0-5 /lpf Urine Bacteria (Auto) NEG NEG White Blood Count 13.93 4.8-10.8 K/uL Red Blood Count 4.86 4.2-5.4 M/uL Hemoglobin 14.5 12.0-16.0 g/dL Hematocrit 44.1 37-47 % Mean Corpuscular Volume 90.7 80-100 fL Mean Corpuscular Hemoglobin 29.8 25-34 pg Mean Corpuscular Hemoglobin Concent 32.9 32-36 g/dl Platelet Count 236 130-400 K/uL Mean Platelet Volume 11.7 7.4-10.4 fL Neutrophils (%) (Auto) 86.5 % Lymphocytes (%) (Auto) 4.4 % Monocytes (%) (Auto) 7.7 % Eosinophils (%) (Auto) 0.8 % Basophils (%) (Auto) 0.2 % Neutrophils # (Auto) 12.06 1.4-6.5 K/uL Lymphocytes # (Auto) 0.61 1.2-3.4 K/uL Monocytes # (Auto) 1.07 0.11-0.59 K/uL Eosinophils # (Auto) 0.11 0-0.5 K/uL Basophils # (Auto) 0.03 0-0.2 K/uL RDW Standard Deviation 52.9 36.4-46.3 fL RDW Coefficient of Variation 15.9 11.5-14.5 % Immature Granulocyte % (Auto) 0.4 % Immature Granulocyte # (Auto) 0.05 0.00-0.02 K/uL Prothrombin Time 10.7 9.0-12.0 SECONDS Prothromb Time International Ratio 1.0 0.9-1.1 Activated Partial Thromboplast Time 26.8 21.0-31.0 SECONDS Partial Thromboplastin Ratio 1.0 Sodium Level 140 136-145 mmol/L Potassium Level 4.0 3.5-5.1 mmol/L Chloride Level 101 98-107 mmol/L Carbon Dioxide Level 26 21-32 mmol/L Anion Gap 13.0 3-11 mmol/L Blood Urea Nitrogen 13 7-18 mg/dl Creatinine 1.00 0.60-1.20 mg/dl Est Creatinine Clear Calc Drug Dose 34.6 ml/min Estimated GFR () 58.7 Estimated GFR (Non- 50.6 BUN/Creatinine Ratio 12.9 10-20 Random Glucose 168 70-99 mg/dl Calcium Level 8.3 8.5-10.1 mg/dl Total Bilirubin 0.5 0.2-1 mg/dl Aspartate Amino Transf (AST/SGOT) 54 15-37 U/L Alanine Aminotransferase (ALT/SGPT) 39 12-78 U/L Alkaline Phosphatase 99 45-117 U/L Troponin I 0.103 0-0.045 ng/ml Total Protein 7.6 6.4-8.2 gm/dl Albumin 3.3 3.4-5.0 gm/dl Globulin 4.3 2.5-4.0 gm/dl Albumin/Globulin Ratio 0.8 0.9-2 Bedside Lactic Acid Venous 3.23 0.90-1.70 mmol/L Bedside Troponin I 0.100 0-0.045 ng/ml [id number] Natriuretic Peptide 3576 0-1800 pg/ml Test 05/24/16 22:20 05/24/16 22:33 Range/Units Influenza Type A Antigen Neg for Influ A NEG Influenza Type B Antigen Neg for Influ B NEG Microbiology Results 05/24/16 Blood Culture, Received Pending 05/24/16 Blood Culture, Received Pending Diagnostic Radiology SINGLE VIEW CHEST CLINICAL HISTORY: Fall. Change in mental status. FINDINGS: An AP, portable, upright chest radiograph is compared to study dated 05/21/2016. The examination is degraded by portable technique and patient rotation. The heart is mildly enlarged and there is atherosclerotic calcification of the thoracic aorta. The pulmonary vasculature is noncongested. Chronic interstitial thickening and elevation of the right hemidiaphragm are unchanged. No airspace consolidation, pleural effusion, or pneumothorax is seen. The skeletal structures are osteopenic. The bony thorax is grossly intact. A right shoulder arthroplasty is in place. Degenerative change is noted throughout the thoracic spine. IMPRESSION: Cardiac enlargement with no acute cardiopulmonary abnormality. Electronically signed by: Quinn Flynn M.D. 05/24/2016 9:20 PM Dictated Date/Time: 05/24/2016 9:19 PM ULTRASOUND RIGHT LOWER EXTREMITY VENOUS CLINICAL HISTORY: Right leg swelling. COMPARISON STUDY: No priors. TECHNIQUE: Real-time, grayscale, and color Doppler sonography of the deep veins of the right lower extremity was performed from the inguinal crease to the calf. Compression and augmentation were utilized. FINDINGS: There is no sonographic evidence of deep venous thrombosis identified in the right lower extremity. The common femoral, superficial femoral, and popliteal veins are patent and normally compressible. The greater saphenous vein and the profunda femoris vein at the junction with the common femoral vein are clear. The visualized calf veins are patent. IMPRESSION: There is no sonographic evidence of deep venous thrombosis identified in the right lower extremity. Electronically signed by: Quinn Flynn M.D. 05/24/2016 10:10 PM Dictated Date/Time: 05/24/2016 10:10 PM Impression Assessment and Plan 85 yo female with recent admission for UTI and frostbite presents to the ER with cellulitis and POC lactic acid 3.3. Sepsis, source cellulitis - elevated lactic acid, qSOFA 2, SOFA score estimated 2 - continue to trend lactic acid - Initially ordered bolus of IV NSS however on further assessment after IV antibiotics and acetaminophen her chest is increasingly coarse and JVD now visible therefore hold of currently - follow up blood cultures - continue vancomycin and add cefepime. Shortness of breath and productive cough - unclear etiology give not much evidence of pulmonary edema on CXR and no previous lung disease. Suspect she has lost the ability to clear her chest and swallow saliva given sepsis. No clear evidence of pneumonia at present - Rx with duonebs Q6R + PRN Q2H given wheezing. incentive spirometry and flutter valve if able. Unlikely to tolerate vibration vest given she says ouch to any palpation anywhere. - CXR in morning - Maintain sats > 92% Elevated troponin - appears to be her baseline from previous admission and related to her LVH. Will trend another in the morning - EKG does not show any new ischemic changes Chronic diastolic heart failure with moderate to severe aortic stenosis - conservative management as per Dr Jackson's last consultation, no further echocardiograms needed. - will be more conservative with IVF given her aortic stenosis as not to cause pulmonary edema - Hold lasix - pending assessment with examination, CXR and UO in morning VTE Prophylaxis - heparin 5000 units SQ Q8H Code - Discussed with her sons. They currently wish her to have resuscitation efforts without intubation. I discussed this in some detail with them given her moderate to severe aortic stenosis and futility of resuscitation especially without intubation. They wish to discuss it amongst themselves further and will be for full resuscitation without mechanical ventilation currently. Disposition - admit to telemetry given sepsis diagnosis. Although qSOFA and SOFA scores low she has significant co-morbidity with the aortic stenosis which makes her prognosis worse. Elevated troponin also warrants telemetry admission although this appears to be her baseline as per last admission. Level of Care Telemetry Advanced Directives Existing Advance Directive: No Existing Living Will: No Existing Power of Transportation Director: Yes (sons) Resuscitation Status FULL RESUSCITATION VTE Prophylaxis Given or contraindicated: Unfractionated heparin SQ, T.E.D. Stockings, SCD's Additional Copies To Alyx Mahmood C.R.N.P Resident Tracking Resident Involvement: Resident Care Provided Care Provided: [facility] Medicine Assessment and Plan Attending Addendum: I have physically seen and examined this patient, have directed their medical care, have supervised the medical residents activities, and agree with the H&P as noted above, with the following changes: NONE The patient is lethargic, normocephalic and atraumatic, lying in bed and in no acute distress. HEENT--PERRL, EOMI, mucous membranes and oropharynx dry. Neck--supple, no JVD or bruits, thyroid normal, trachea midline, no adenopathy. Heart--normal S1 and S2, no extra beats, no murmurs, rubs or gallops. Lungs--wheezes or rhonchi bilaterally. Abdomen--normal bowel sounds and soft, nontender and nondistended, no hernias or masses, no organomegaly. Extremities--no cyanosis, clubbing or edema. There are good distal pulses b/l. Dermatologic--right lower extremity with anterior tibial erythema and warmth, involving the dorsum of the foot and bandaged toes. Left lower extremity is normal. Neurologic--cranial nerves II through XII grossly intact, motor and sensory examination normal. Rheumatologic--normal range of motion, nontender, muscles and joints. Psychiatric--normal affect. Assessment and Plan: Infectious Disease: Combination of right lower external cellulitis and upper respiratory infection/bronchitis--the patient will be placed on vancomycin IV and cefepime IV, nebulizers every 6 hours while awake and every 2 hours when necessary, guaifenesin extended release 600 mg by mouth twice a day. We'll hold methylprednisolone for now. Follow blood culture results. CAD/hypertension/diastolic CHF/aortic stenosis--troponin continued to be mildly elevated at her baseline, will continue to follow cardiac enzymes, and cardiac rhythm monitoring on telemetry. She was given Lasix in emergency department, but no further Lasix should be given, and she may require some gentle fluid rehydration, in particular keeping in mind her aortic stenosis and preload dependency. Gen. debilitation--will need a PT/ OT assessment, and will likely need to be in a long term facility upon discharge.
[2016-05-25] MEDS: ALBUT/IPRATROP 3MG/0.5MG NEB 3 ML VIAL INH SCH ×5 (02:10→19:29)
[2016-05-25] MEDS ORDERED: VANCOMYCIN CONSULT ACTIVE PRN (02:45)
[2016-05-25] MEDS ORDERED: CEFEPIME CONSULT ACTIVE PRN ×2 (02:45)
[2016-05-25] MEDS: VANCOMYCIN INJ 1,000 MG in SODIUM CHLORIDE 0.9% 250ML 250 ML IV SCH (04:05)
--- NOTE | 2016-05-25 05:52 | Pharmacy Progress Note ---
Pharmacy Antibiotic Consult Date of Service: May 25, 2016. Pharmacy Dosing Scope Pharmacy is consulted to initiate Vancomycin IV dosing therapy, order appropriate labs and adjust drug dose/frequency. Subjective The patient is a 85 year old female admitted on May 24, 2016 at 23:54 admitted with Cellulitis and possible Sepsis. Dr. Michel consulted pharmacy to dose Vancomycin and Cefepime. Objective Height (Feet): 5 Height (Inches): 0.00 Weight (Kilograms): 64.200 Lab Results (24hrs): Laboratory Tests Test 05/24/16 21:55 05/25/16 04:44 BUN/Creatinine Ratio 12.9 Blood Urea Nitrogen 13 mg/dl Creatinine 1.00 mg/dl White Blood Count 13.93 K/uL Red Blood Count 4.86 M/uL Hemoglobin 14.5 g/dL Hematocrit 44.1 % Mean Corpuscular Volume 90.7 fL Mean Corpuscular Hemoglobin 29.8 pg Mean Corpuscular Hemoglobin Concent 32.9 g/dl Platelet Count 236 K/uL Mean Platelet Volume 11.7 fL Neutrophils (%) (Auto) 86.5 % Lymphocytes (%) (Auto) 4.4 % Monocytes (%) (Auto) 7.7 % Eosinophils (%) (Auto) 0.8 % Basophils (%) (Auto) 0.2 % Neutrophils # (Auto) 12.06 K/uL Lymphocytes # (Auto) 0.61 K/uL Monocytes # (Auto) 1.07 K/uL Eosinophils # (Auto) 0.11 K/uL Basophils # (Auto) 0.03 K/uL Micro Results: Item Value Date Time Blood Culture Received 05/24/162157 Blood Pending Blood Culture Received 05/24/162154 Blood Pending Recent Pertinent Medications Item Value Date Time Cefepime HCl 2000 112.5 ml @ 200 mls/hr 05/25/16 1200 mg/Dextrose Q12H/IV Assessment & Plan Loading dose: Vancomycin 1gm IV X 1 dose in the ED then: Vancomycin 1gm (~15mg /kg) IV daily thereafter. I estimated patients half life at around 21 hours. I ordered a trough level prior to 0400 dose on 05/27/16. Goal trough level estimate: between 15-20 mcg/mL. Pharmacy will continue to follow and will adjust dose/frequency as necessary. Thank you
[2016-05-25] MEDS: HEPARIN SOD 5000 UNIT/0.5 ML CARP SQ SCH ×3 (06:00→23:51)
[2016-05-25 07:42] LABS: BASO % 0.3 %; BASO ABS # 0.03 K/uL (0-0.2); COMPLETE YES; EOS % 0.3 %; HEMATOCRIT 36.5 % (37-47); IG% 0.4 %; LYMPH % 9.8 %; LYMPH ABS # 1.09 K/uL (1.2-3.4); MEAN CELL VOLUME 88.4 fL (80-100); MEAN CORPUSCULAR HEMOGLOBIN 29.1 pg (25-34); MEAN CORPUSCULAR HGB CONC 32.9 g/dl (32-36); MEAN PLATELET VOLUME 11.3 fL (7.4-10.4); MONO % 8.8 %; NEUT % 80.4 %; PLATELET COUNT 214 K/uL (130-400); RED BLOOD COUNT 4.13 M/uL (4.2-5.4); WHITE BLOOD COUNT 11.08 K/uL (4.8-10.8)
[2016-05-25] MEDS ORDERED: CEFEPIME IV 2,000 MG in DEXTROSE 5% 100ML 100 ML IV SCH (08:00)
[2016-05-25 08:19] LABS: BUN/CREATININE RATIO 13.6 (10-20); CALCIUM 7.9 mg/dl (8.5-10.1); CREATININE 0.98 mg/dl (0.60-1.20); MAGNESIUM 2.5 mg/dl (1.8-2.4); POTASSIUM 3.9 mmol/L (3.5-5.1)
[2016-05-25 08:33] LABS: ALB/GLOB RATIO 0.7 (0.9-2)
[2016-05-25] MEDS ORDERED: MICONAZOLE NITRATE POWDER 43 GM EXT PRN (12:30)
[2016-05-25] MEDS ORDERED: NURSING DECISION MEDICATION ORDER SCH (12:30)
[2016-05-25] MEDS: CEFEPIME IV 2,000 MG in DEXTROSE 5% 100ML 100 ML IV SCH ×2 (12:39→23:51)
--- NOTE | 2016-05-25 13:15 | DIAGNOSTIC IMAGING REPORT ---
RIGHT ANKLE 3 VIEWS CLINICAL HISTORY: Right ankle pain. FINDINGS: 3 views of the right ankle are obtained. No prior studies are available for comparison at the time of dictation. The skeletal structures are osteopenic. No fracture is seen. The ankle mortise is intact. A large dorsal calcaneal enthesophyte is observed. There is no ankle joint effusion. Regional soft tissue edema is noted. There is atherosclerotic calcification regional arteries. Degenerative spurring is seen along the dorsal aspect of the tarsal bones. IMPRESSION: 1. Soft tissue edema with no radiographic evidence of right ankle fracture. 2. Osteopenia and degenerative change as above. Electronically signed by: Quinn Flynn M.D. 05/25/2016 1:13 PM Dictated Date/Time: 05/25/2016 1:12 PM
--- NOTE | 2016-05-25 13:16 | DIAGNOSTIC IMAGING REPORT ---
RIGHT KNEE 2 VIEWS CLINICAL HISTORY: Right knee pain. FINDINGS: AP and crosstable lateral views of the right knee are compared to study dated 05/21/2016. The skeletal structures are osteopenic. No fracture is seen. There is moderate tricompartmental degenerative joint space narrowing, greatest in the medial and patellofemoral compartments. There are large patellar enthesophytes as well as small marginal osteophytes and degenerative beaking of the tibial spine. No joint effusion is seen. Mild soft tissue swelling is present around the ankle. There is advanced atherosclerotic calcification of the popliteal artery. IMPRESSION: 1. Mild soft tissue swelling with no acute bony abnormality seen in the right knee. No change from study performed 4 days previously. 2. Osteopenia and arthritic change as above. Electronically signed by: Quinn Flynn M.D. 05/25/2016 1:15 PM Dictated Date/Time: 05/25/2016 1:13 PM
--- NOTE | 2016-05-25 13:18 | DIAGNOSTIC IMAGING REPORT ---
SINGLE VIEW CHEST CLINICAL HISTORY: Dyspnea. FINDINGS: An AP, portable, upright chest radiograph is compared to study dated 05/24/2016. The examination is degraded by portable technique and patient rotation. The heart is mildly enlarged and there is atherosclerotic calcification of the thoracic aorta. The pulmonary vasculature is noncongested. Chronic interstitial thickening and elevation of the right hemidiaphragm are unchanged. There is minimal left basilar atelectasis. No airspace consolidation, pleural effusion, or pneumothorax is seen. The skeletal structures are osteopenic. The bony thorax is grossly intact. A right shoulder arthroplasty is in place. Degenerative change is noted throughout the thoracic spine. IMPRESSION: Cardiac enlargement with no acute cardiopulmonary abnormality. There has been no significant change from yesterday. Electronically signed by: Quinn Flynn M.D. 05/25/2016 1:16 PM Dictated Date/Time: 05/25/2016 1:15 PM
--- NOTE | 2016-05-25 13:19 | DIAGNOSTIC IMAGING REPORT ---
RIGHT FOOT 3 VIEWS HISTORY: Right foot pain. trauma COMPARISON: None. FINDINGS: There is no fracture or dislocation. Posterior calcaneal spur. 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 The Lisfranc joint is intact. Soft tissue swelling at the ankle. No radiopaque foreign bodies. IMPRESSION: No acute fracture or dislocation within the right foot. Electronically signed by: Romain Turner M.D. 05/25/2016 1:17 PM Dictated Date/Time: 05/25/2016 1:15 PM
--- NOTE | 2016-05-25 16:27 | Family Medicine Progress Note ---
Progress Note Date of Service May 25, 2016. Subjective Pt evaluation today including: conversation w/ patient, physical exam, chart review, lab review Pain: Denies Voiding: raman catheter in place Patient was seen at the bedside. She has baseline dementia. She was able to tell her name but couldn't tell where she is or where she lives. She couldn't recall the event that brought her to the hospital. She denies any chest pain, SOB, palpitation, nausea, vomiting, abdominal pain, or any other additional complaints. She tolerated food well. Her [id number] was at the bedside and she stated that patient is doing better than yesterday. Constitutional: No chills, No fever Respiratory: + cough, + sputum, + wheezing, No shortness of breath Cardiovascular: No chest pain, No edema Abdomen: No constipation, No diarrhea, No nausea, No pain, No vomiting Musculoskeletal: No muscle pain Female : No dysuria Skin: + problem reported (frostbite on the right foot) Medications Current Inpatient Medications Medications (Trade) Dose Ordered Sig/Macy Route Start Time Stop Time Status Last Admin Dose Admin Heparin Sodium (Porcine) 5000 unit 5,000 unit Q8 SQ 05/25/16 06:00 06/24/16 05:59 05/25/16 12:47 5,000 UNIT Acetaminophen/ Empty Bag (Ofirmev IV/ Empty Iv Bag 100ml) 65 ml @ 260 mls/hr Q6H PRN IV 05/25/16 00:00 06/24/16 00:00 Albuterol/ Ipratropium 3 ml 3 ml QIDR INH 05/25/16 08:00 06/24/16 07:59 05/25/16 15:30 3 ML Vancomycin HCl/ Sodium Chloride (Vancomycin Inj/ Nss 250ml) 270 ml @ 125 mls/hr Q24H IV 05/25/16 04:00 06/04/16 03:59 05/25/16 04:05 125 MLS/HR Vancomycin HCl (Consult) 1 ea UD PRN N/A 05/25/16 02:45 06/24/16 02:44 Cefepime HCl 1 ea 1 ea UD PRN N/A 05/25/16 02:45 06/24/16 02:44 Cefepime HCl/ Dextrose (Maxipime IV/D5 100ml) 112.5 ml @ 200 mls/hr Q12H IV 05/25/16 12:00 06/04/16 11:59 05/25/16 12:39 200 MLS/HR Miconazole Nitrate (Desenex Powder) 1 appln BID PRN EXT 05/25/16 12:30 06/24/16 12:29 Objective Vital Signs Date Time Temp Pulse Resp B/P Pulse Ox O2 Delivery O2 Flow Rate FiO2 05/25/16 15:30 74 20 94 Nasal Cannula 2.0 05/25/16 13:32 58 18 94 Room Air 05/25/16 12:00 36.3 59 16 125/73 92 Room Air 05/25/16 12:00 92 Room Air 05/25/16 08:00 92 Room Air 05/25/16 08:00 37.0 59 18 107/58 92 Room Air 05/25/16 07:18 78 18 91 Room Air 05/25/16 04:00 36.4 68 18 118/66 98 Nasal Cannula 2.0 05/25/16 03:40 Nasal Cannula 2.0 05/25/16 01:58 36.8 80 20 121/74 93 Nasal Cannula 2.0 05/25/16 01:08 78 18 88 Room Air 05/25/16 00:12 38.0 80 18 101/63 Room Air 05/25/16 00:00 39.6 05/24/16 23:51 73 20 127/40 100 Room Air 05/24/16 22:22 77 26 142/69 99 Room Air 05/24/16 21:12 95 Room Air 05/24/16 21:06 95 Room Air 05/24/16 21:00 89 05/24/16 20:53 37.7 90 29 127/78 95 Room Air Physical Exam General Appearance: no apparent distress Neck: supple, trachea midline Respiratory/Chest: chest non-tender, no respiratory distress, + decreased breath sounds (at the bases), + wheezing (expiratory wheezing) Cardiovascular: regular rate, rhythm, no edema, + systolic murmur Abdomen: normal bowel sounds, non tender, soft Extremities: non-tender, + pertinent finding (noted erythematous wound on all the toes of the right leg) Neurologic/Psychiatric: alert, + pertinent finding (she was able to tell her name, couldn't tell where she is, or the year) Laboratory Results Results Past 24 Hours Test 05/24/16 21:45 05/24/16 21:55 05/24/16 22:11 05/24/16 22:12 Range/Units Urine Color YELLOW Urine Appearance CLEAR CLEAR Urine pH 6.5 4.5-7.5 Urine Specific [place] 1.006 1.000-1.030 Urine Protein NEG NEG Urine Glucose (UA) TRACE NEG Urine Ketones NEG NEG Urine Occult Blood NEG NEG Urine Nitrite NEG NEG Urine Bilirubin NEG NEG Urine Urobilinogen NEG NEG Urine Leukocyte Esterase NEG NEG Urine WBC (Auto) 0 0-5 /hpf Urine RBC (Auto) 0-4 0-4 /hpf Urine Hyaline Casts (Auto) 0 0-5 /lpf Urine Epithelial Cells (Auto) 10-20 0-5 /lpf Urine Bacteria (Auto) NEG NEG White Blood Count 13.93 4.8-10.8 K/uL Red Blood Count 4.86 4.2-5.4 M/uL Hemoglobin 14.5 12.0-16.0 g/dL Hematocrit 44.1 37-47 % Mean Corpuscular Volume 90.7 80-100 fL Mean Corpuscular Hemoglobin 29.8 25-34 pg Mean Corpuscular Hemoglobin Concent 32.9 32-36 g/dl Platelet Count 236 130-400 K/uL Mean Platelet Volume 11.7 7.4-10.4 fL Neutrophils (%) (Auto) 86.5 % Lymphocytes (%) (Auto) 4.4 % Monocytes (%) (Auto) 7.7 % Eosinophils (%) (Auto) 0.8 % Basophils (%) (Auto) 0.2 % Neutrophils # (Auto) 12.06 1.4-6.5 K/uL Lymphocytes # (Auto) 0.61 1.2-3.4 K/uL Monocytes # (Auto) 1.07 0.11-0.59 K/uL Eosinophils # (Auto) 0.11 0-0.5 K/uL Basophils # (Auto) 0.03 0-0.2 K/uL RDW Standard Deviation 52.9 36.4-46.3 fL RDW Coefficient of Variation 15.9 11.5-14.5 % Immature Granulocyte % (Auto) 0.4 % Immature Granulocyte # (Auto) 0.05 0.00-0.02 K/uL Prothrombin Time 10.7 9.0-12.0 SECONDS Prothromb Time International Ratio 1.0 0.9-1.1 Activated Partial Thromboplast Time 26.8 21.0-31.0 SECONDS Partial Thromboplastin Ratio 1.0 Sodium Level 140 136-145 mmol/L Potassium Level 4.0 3.5-5.1 mmol/L Chloride Level 101 98-107 mmol/L Carbon Dioxide Level 26 21-32 mmol/L Anion Gap 13.0 3-11 mmol/L Blood Urea Nitrogen 13 7-18 mg/dl Creatinine 1.00 0.60-1.20 mg/dl Est Creatinine Clear Calc Drug Dose 34.6 ml/min Estimated GFR () 58.7 Estimated GFR (Non- 50.6 BUN/Creatinine Ratio 12.9 10-20 Random Glucose 168 70-99 mg/dl Calcium Level 8.3 8.5-10.1 mg/dl Total Bilirubin 0.5 0.2-1 mg/dl Aspartate Amino Transf (AST/SGOT) 54 15-37 U/L Alanine Aminotransferase (ALT/SGPT) 39 12-78 U/L Alkaline Phosphatase 99 45-117 U/L Total Creatine Kinase 978 26-192 U/L Troponin I 0.103 0-0.045 ng/ml Total Protein 7.6 6.4-8.2 gm/dl Albumin 3.3 3.4-5.0 gm/dl Globulin 4.3 2.5-4.0 gm/dl Albumin/Globulin Ratio 0.8 0.9-2 Bedside Lactic Acid Venous 3.23 0.90-1.70 mmol/L Bedside Troponin I 0.100 0-0.045 ng/ml [id number]-Rsh-P-Type Natriuretic Peptide 3576 0-1800 pg/ml Test 05/24/16 22:20 05/24/16 23:45 05/25/16 07:27 Range/Units Influenza Type A Antigen Neg for Influ A NEG Influenza Type B Antigen Neg for Influ B NEG Lactic Acid Level 2.2 1.0 0.4-2.0 mmol/L White Blood Count 11.08 4.8-10.8 K/uL Red Blood Count 4.13 4.2-5.4 M/uL Hemoglobin 12.0 12.0-16.0 g/dL Hematocrit 36.5 37-47 % Mean Corpuscular Volume 88.4 80-100 fL Mean Corpuscular Hemoglobin 29.1 25-34 pg Mean Corpuscular Hemoglobin Concent 32.9 32-36 g/dl Platelet Count 214 130-400 K/uL Mean Platelet Volume 11.3 7.4-10.4 fL Neutrophils (%) (Auto) 80.4 % Lymphocytes (%) (Auto) 9.8 % Monocytes (%) (Auto) 8.8 % Eosinophils (%) (Auto) 0.3 % Basophils (%) (Auto) 0.3 % Neutrophils # (Auto) 8.91 1.4-6.5 K/uL Lymphocytes # (Auto) 1.09 1.2-3.4 K/uL Monocytes # (Auto) 0.98 0.11-0.59 K/uL Eosinophils # (Auto) 0.03 0-0.5 K/uL Basophils # (Auto) 0.03 0-0.2 K/uL RDW Standard Deviation 51.6 36.4-46.3 fL RDW Coefficient of Variation 16.0 11.5-14.5 % Immature Granulocyte % (Auto) 0.4 % Immature Granulocyte # (Auto) 0.04 0.00-0.02 K/uL Sodium Level 143 136-145 mmol/L Potassium Level 3.9 3.5-5.1 mmol/L Chloride Level 106 98-107 mmol/L Carbon Dioxide Level 28 21-32 mmol/L Anion Gap 9.0 3-11 mmol/L Blood Urea Nitrogen 13 7-18 mg/dl Creatinine 0.98 0.60-1.20 mg/dl Est Creatinine Clear Calc Drug Dose 34.8 ml/min Estimated GFR () 60.1 Estimated GFR (Non- 51.9 BUN/Creatinine Ratio 13.6 10-20 Random Glucose 112 70-99 mg/dl Calcium Level 7.9 8.5-10.1 mg/dl Magnesium Level 2.5 1.8-2.4 mg/dl Total Bilirubin 0.6 0.2-1 mg/dl Aspartate Amino Transf (AST/SGOT) 36 15-37 U/L Alanine Aminotransferase (ALT/SGPT) 30 12-78 U/L Alkaline Phosphatase 74 45-117 U/L Total Creatine Kinase 562 26-192 U/L Troponin I 0.104 0-0.045 ng/ml Total Protein 6.5 6.4-8.2 gm/dl Albumin 2.7 3.4-5.0 gm/dl Globulin 3.8 2.5-4.0 gm/dl Albumin/Globulin Ratio 0.7 0.9-2 Microbiology Results 05/24/16 Blood Culture, Received Pending 05/24/16 Blood Culture, Received Pending Assessment and Plan This is an 85 year old female with moderate to severe aortic stenosis, dementia , legally blind and diastolic heart failure presents to the hospital with shortness of breath, productive cough and altered mental consciousness X1day. On tele she was sinus rhythm with heart rate in 50s and 60s. 1. Sepsis - Most likely secondary to cellulitis on the right foot and possible bronchitis - Elevated lactic acid on ED, it is normal now - UA is negative - BCx - pending (no growth to date) - CXR negative. - Treat underlying illness. 2. Possible cellulitis on the right foot - Most likely 2/2 to frostbite - Wound care and Dr. Bourne consulted - Continue with Vanco and Cefepime (Day#1) - started on admission for concern of G- pneumonia but CXR negative. 3. Shortness of breath and productive cough - CXR showed no evidence of pulmonary edema or pneumonia. Patient has no hx of lung disease. Possible reason patient's inability to clear her chest or swallow the saliva. No evidence of aspiration pneumonia on CXR. - ? sec to bronchitis/aspiration pneumonitis. - C/w duoneb q6h and q2h prn. - CXR (05/25): no acute cardiopulmonary abnormality - US for DVT was negative in ED - Given 40mg of Prednisone for possible asthmatic bronchitis - Evaluate by speech therapy and started her on regular diet (mechanical soft) - Currently requiring oxygen supplement (2L [place]), wean off as tolerated. - Continue to monitor 4. Elevated troponin - appears to be her baseline from previous admission and related to her LVH. - EKG does not show any new ischemic changes - Trended down 5. Acute on Chronic diastolic heart failure with moderate to severe aortic stenosis - s/p 40mg Lasix in ED - Conservative management as per Dr Jackson's last consultation, no further echocardiograms needed. - Conservative with IVF given her moderate to severe aortic stenosis, not to cause pulmonary edema 6. VTE Prophylaxis - Heparin 5000 units SQ Q8H 7. Code Status - Full code, no mech ventilation Reviewed: Pt Seen/Exam by Me Constitutional: denies: fever Respiratory: positive: cough, short of breath (better though) Cardiovascular: denies chest pain Gastrointestinal/Abdominal: negative: abdominal pain General Appearance: no apparent distress Respiratory: no respiratory distress, decreased breath sounds, wheezing Cardiovascular: regular rate, rhythm Neurologic/Psychiatric: alert, oriented x 3 Skin Characteristics: warm/dry Assessment/Plan I have reviewed the medical record and performed a history and physical examination of this patient today. I have discussed the case with Dr. Robles. The above note reflects my findings, conclusions, and recommendations.
[2016-05-26] VITALS (9 sets, daily range): BP systolic 119–152; BP diastolic 52–72; PULSE 57–72; TEMP 36.3–37.1; O2SAT 91–97
[2016-05-26] MEDS: VANCOMYCIN INJ 1,000 MG in SODIUM CHLORIDE 0.9% 250ML 250 ML IV SCH (04:00)
[2016-05-26] MEDS: HEPARIN SOD 5000 UNIT/0.5 ML CARP SQ SCH ×3 (06:38→21:31)
[2016-05-26] MEDS: ALBUT/IPRATROP 3MG/0.5MG NEB 3 ML VIAL INH SCH ×4 (07:10→20:06)
[2016-05-26 07:17] LABS: HEMATOCRIT 38.2 % (37-47); MEAN CELL VOLUME 90.7 fL (80-100); MEAN CORPUSCULAR HEMOGLOBIN 29.5 pg (25-34); MEAN CORPUSCULAR HGB CONC 32.5 g/dl (32-36); MEAN PLATELET VOLUME 11.4 fL (7.4-10.4); PLATELET COUNT 232 K/uL (130-400); RED BLOOD COUNT 4.21 M/uL (4.2-5.4); WHITE BLOOD COUNT 8.73 K/uL (4.8-10.8)
[2016-05-26 07:54] LABS: BUN/CREATININE RATIO 16.3 (10-20); CALCIUM 8.3 mg/dl (8.5-10.1); CREATININE 0.81 mg/dl (0.60-1.20); POTASSIUM 3.9 mmol/L (3.5-5.1)
--- NOTE | 2016-05-26 07:59 | Clinical Documentation Query ---
QUERY 1 OF [address] PRESSLEY, In your clinical opinion is this patient being managed for: ( ) Metabolic/septic encephalopathy ( ) Other explanation of clinical findings (Please Explain) ( ) Unable to determine (Please Define) ( ) Need to Discuss ( X ) Not Agree - patient is at her baseline The medical record reflects the following clinical findings, treatment, and risk factors. Clinical Indicators: 85 yo female presented to ER with altered mental consciousness. Family indicated pt is not at her baseline level associated with her dementia. WBC 13.93, lactic acid 3.23. Treatment:IV vancomycin, IV cefepime, tele, Risk Factors:age, sepsis, cellulitis, known dementia QUERY 2 OF 2 H/P indicates pt is being treated for bronchitis/URI. CXR negative for pneumonia. Pt presented with dyspnea and productive cough. Being treated with IV vancomycin, IV cefepime, nebulizers every 6 hours while awake and every 2 hours when necessary, guaifenesin extended release 600 mg by mouth twice a day. The diagnosis of bronchitis has since been removed from documentation. In your clinical opinion is this patient being managed for: ( ) Acute bronchitis ( ) Other explanation of clinical findings (Please Explain) ( ) Unable to determine (Please Define) ( ) Need to Discuss ( ) Not Agree ( X ) questionable bronchitis/URI Please clarify and document your clinical opinion in the progress notes and discharge summary. Terms such as "probable", "suspected", "likely", "questionable", "possible", or "still to be ruled out" are acceptable. IF IN AGREEMENT, YOU MUST DOCUMENT ABOVE DIAGNOSTIC STATEMENT IN DAILY PROGRESS NOTES AND DISCHARGE SUMMARY. This document is not part of the patient's record. Thank You, Desi Kelly, RN [phone]
--- NOTE | 2016-05-26 08:01 | Clinical Documentation Query ---
QUERY 1 OF [address] AVILA, In your clinical opinion is this patient being managed for: ( ) Metabolic/septic encephalopathy ( ) Other explanation of clinical findings (Please Explain) ( ) Unable to determine (Please Define) ( ) Need to Discuss (x ) Not Agree The medical record reflects the following clinical findings, treatment, and risk factors. Clinical Indicators: 85 yo female presented to ER with altered mental consciousness. Family indicated pt is not at her baseline level associated with her dementia. WBC 13.93, lactic acid 3.23. Treatment:IV vancomycin, IV cefepime, tele, Risk Factors:age, sepsis, cellulitis, known dementia QUERY 2 OF 2 H/P indicates pt is being treated for bronchitis/URI. CXR negative for pneumonia. Pt presented with dyspnea and productive cough. Being treated with IV vancomycin, IV cefepime, nebulizers every 6 hours while awake and every 2 hours when necessary, guaifenesin extended release 600 mg by mouth twice a day. The diagnosis of bronchitis has since been removed from documentation. In your clinical opinion is this patient being managed for: ( x ) Acute bronchitis ( ) Other explanation of clinical findings (Please Explain) ( ) Unable to determine (Please Define) ( ) Need to Discuss ( ) Not Agree Please clarify and document your clinical opinion in the progress notes and discharge summary. Terms such as "probable", "suspected", "likely", "questionable", "possible", or "still to be ruled out" are acceptable. IF IN AGREEMENT, YOU MUST DOCUMENT ABOVE DIAGNOSTIC STATEMENT IN DAILY PROGRESS NOTES AND DISCHARGE SUMMARY. This document is not part of the patient's record. Thank You, Desi Kelly, RN [phone]
--- NOTE | 2016-05-26 10:44 | DIAGNOSTIC IMAGING REPORT ---
CHEST ONE VIEW PORTABLE HISTORY: Short of breath. COMPARISON: Chest 05/25/2016. FINDINGS: The heart remains mildly enlarged. Stable mild elevation the right hemidiaphragm. No focal lung consolidations to suggest pneumonia. No evidence for pulmonary edema. No pleural effusions. No pneumothorax. There is a right shoulder prosthesis. IMPRESSION: No significant change compared to the prior study. No acute process. Stable mild cardiomegaly. Electronically signed by: Romain Turner M.D. 05/26/2016 10:42 AM Dictated Date/Time: 05/26/2016 10:42 AM
--- NOTE | 2016-05-26 10:56 | Family Medicine Progress Note ---
Progress Note Date of Service May 26, 2016. Subjective Pt evaluation today including: conversation w/ patient, physical exam, lab review Pain: Denies Voiding: raman catheter in place Patient was seen at the bedside. She was more awake today. Per nurse she is tolerating food well. She thinks her SOB has improved. Still coughing but can't clear the mucosal secretions. Denies chest pain, palpitation, nausea, vomiting, or any other additional symptoms. Constitutional: No fever Respiratory: + cough, + shortness of breath, + sputum, No dyspnea at rest, No dyspnea on exertion, No wheezing Cardiovascular: No chest pain, No edema Abdomen: No diarrhea, No nausea, No pain, No vomiting Musculoskeletal: No muscle pain Medications Current Inpatient Medications Medications (Trade) Dose Ordered Sig/Macy Route Start Time Stop Time Status Last Admin Dose Admin Heparin Sodium (Porcine) 5000 unit 5,000 unit Q8 SQ 05/25/16 06:00 06/24/16 05:59 05/26/16 06:38 5,000 UNIT Acetaminophen/ Empty Bag (Ofirmev IV/ Empty Iv Bag 100ml) 65 ml @ 260 mls/hr Q6H PRN IV 05/25/16 00:00 06/24/16 00:00 Albuterol/ Ipratropium 3 ml 3 ml QIDR INH 05/25/16 08:00 06/24/16 07:59 05/26/16 07:10 3 ML Vancomycin HCl/ Sodium Chloride (Vancomycin Inj/ Nss 250ml) 270 ml @ 125 mls/hr Q24H IV 05/25/16 04:00 06/04/16 03:59 05/26/16 04:00 125 MLS/HR Vancomycin HCl (Consult) 1 ea UD PRN N/A 05/25/16 02:45 06/24/16 02:44 Cefepime HCl 1 ea 1 ea UD PRN N/A 05/25/16 02:45 06/24/16 02:44 Cefepime HCl/ Dextrose (Maxipime IV/D5 100ml) 112.5 ml @ 200 mls/hr Q12H IV 05/25/16 12:00 06/04/16 11:59 05/25/16 23:51 200 MLS/HR Miconazole Nitrate 1 appln 1 appln BID PRN EXT 05/25/16 12:30 06/24/16 12:29 Furosemide/Syringe (Lasix Inj/ Syringe) 2 ml @ 4 mls/min BID IV 05/26/16 21:00 06/25/16 20:59 UNV Objective Vital Signs Date Time Temp Pulse Resp B/P Pulse Ox O2 Delivery O2 Flow Rate FiO2 05/26/16 08:00 92 Room Air 05/26/16 07:43 36.7 58 20 126/61 92 Room Air 05/26/16 07:13 57 20 95 Room Air 05/26/16 04:18 36.8 60 18 119/72 97 Nasal Cannula 4.0 05/26/16 04:00 Nasal Cannula 4.0 05/25/16 23:59 Nasal Cannula 4.0 05/25/16 23:54 36.9 73 18 128/63 93 Nasal Cannula 4.0 05/25/16 20:05 37.0 69 16 109/62 91 Nasal Cannula 4.0 05/25/16 20:00 Nasal Cannula 4.0 05/25/16 19:29 67 20 87 Nasal Cannula 2.0 05/25/16 16:28 37.2 77 18 105/67 91 Nasal Cannula 2.0 05/25/16 16:00 94 Nasal Cannula 2.0 05/25/16 15:30 74 20 94 Nasal Cannula 2.0 05/25/16 13:32 58 18 94 Room Air 05/25/16 12:00 36.3 59 16 125/73 92 Room Air 05/25/16 12:00 92 Room Air Physical Exam General Appearance: WD/WN, no apparent distress Neck: supple, trachea midline Respiratory/Chest: chest non-tender, no respiratory distress, + crackles, + wheezing Cardiovascular: regular rate, rhythm, no edema Abdomen: normal bowel sounds, non tender, soft Extremities: no pedal edema, no calf tenderness Neurologic/Psychiatric: alert, normal mood/affect Skin: normal color, warm/dry Laboratory Results Results Past 24 Hours Test 05/26/16 06:47 Range/Units White Blood Count 8.73 4.8-10.8 K/uL Red Blood Count 4.21 4.2-5.4 M/uL Hemoglobin 12.4 12.0-16.0 g/dL Hematocrit 38.2 37-47 % Mean Corpuscular Volume 90.7 80-100 fL Mean Corpuscular Hemoglobin 29.5 25-34 pg Mean Corpuscular Hemoglobin Concent 32.5 32-36 g/dl RDW Standard Deviation 53.8 36.4-46.3 fL RDW Coefficient of Variation 16.1 11.5-14.5 % Platelet Count 232 130-400 K/uL Mean Platelet Volume 11.4 7.4-10.4 fL Sodium Level 144 136-145 mmol/L Potassium Level 3.9 3.5-5.1 mmol/L Chloride Level 107 98-107 mmol/L Carbon Dioxide Level 26 21-32 mmol/L Anion Gap 11.0 3-11 mmol/L Blood Urea Nitrogen 13 7-18 mg/dl Creatinine 0.81 0.60-1.20 mg/dl Est Creatinine Clear Calc Drug Dose 41.5 ml/min Estimated GFR () 75.7 Estimated GFR (Non- 65.3 BUN/Creatinine Ratio 16.3 10-20 Random Glucose 95 70-99 mg/dl Calcium Level 8.3 8.5-10.1 mg/dl Assessment and Plan This is an 85 year old female with moderate to severe aortic stenosis, dementia , legally blind and diastolic heart failure presents to the hospital with shortness of breath, productive cough and altered mental consciousness X1day. On tele she was sinus rhythm with heart rate in 50s and 60s. Transfer her to Med /Surg. 1. Sepsis - Most likely secondary to cellulitis on the right foot - Elevated lactic acid on ED, it is normal now - UA is negative - BCx - pending (no growth to date) 2. Possible cellulitis on the right foot - Wound care was consulted - S/p 2days of Vancomycin and Cefepime - Switch her to narrow spectrum antibiotics given no growth on BCx, IV Levaquin 500mg daily (Day#2) for total 5 days - Spoke with Dr. Bourne and he thinks it is most likely stage 2 pressure ulcer given the presentation. He recommended Keflex 500mg TID 3. Shortness of breath and productive cough - did receive lasix in ED - CXR showed no evidence of pulmonary edema or pneumonia. Patient has no hx of lung disease. Possible reason patient's inability to clear her chest or swallow the saliva. No evidence of aspiration pneumonia on CXR. Questionable bronchitis or URI. - C/w duoneb q6h and q2h prn. - CXR (05/25): no acute cardiopulmonary abnormality - US for DVT was negative in ED - Given another dose 40mg of Prednisone today - Evaluate by speech therapy and started her on regular diet (mechanical soft) - On room air maintaining oxygen - CXR (05/26) : No acute finding and no change from previous study. No evidence of pneumonia. - Continue to monitor 4. Elevated troponin - appears to be her baseline from previous admission and related to her LVH. - EKG does not show any new ischemic changes - Trended down 5. Acute on Chronic diastolic heart failure with moderate to severe aortic stenosis - Conservative management as per Dr Jackson's last consultation, no further echocardiograms needed. - Conservative with IVF given her moderate to severe aortic stenosis, not to cause pulmonary edema - s/p 40mg Lasix in ED - Start IV Lasix 20mg daily - Monitor 6. VTE Prophylaxis - Heparin 5000 units SQ Q8H 7. Code Status - Full code, no mech ventilation Reviewed: Pt Seen/Exam by Me History breathing better. Constitutional: denies: fever Respiratory: negative: short of breath Cardiovascular: denies chest pain General Appearance: no apparent distress Respiratory: decreased breath sounds (base), wheezing Cardiovascular: regular rate, rhythm Gastrointestinal: normal bowel sounds, non tender, soft Neurologic/Psychiatric: alert Skin Characteristics: warm/dry Assessment/Plan I have reviewed the medical record and performed a history and physical examination of this patient today. I have discussed the case with Dr. Robles. The above note reflects my findings, conclusions, and recommendations.
[2016-05-26] MEDS ORDERED: LEVOFLOXACIN / D5W 750 MG in PREMIXED IN D5W 150 ML IV SCH (11:00)
--- NOTE | 2016-05-26 11:40 | CONSULTATION REPORT ---
DATE OF CONSULTATION: 05/26/2016 CHIEF COMPLAINT: Ulcerations, right foot. HISTORY OF PRESENT ILLNESS: The patient was recently admitted to [facility] for evaluation of hypothermia. The patient is progressing. The patient has significant dementia and is unable to provide any accurate history at this time. The [id number] with the patient, however, stated the patient was found outside in her nightgown the other evening. The patient apparently had fallen and was lying on her right side. The patient was initially brought to the Emergency Department with a temperature of 89 degrees Fahrenheit and was subsequently elevated with appropriate treatment. The patient apparently has not complained of any additional problems other than intermittent pain in the right foot area when touched. Further history is deferred at this time due to the patient's chronic mental status changes. PAST MEDICAL HISTORY: Positive for blindness, aortic stenosis, diastolic congestive heart failure, hypertension and hyperlipidemia. SOCIAL HISTORY: The patient lives with family. No known history of smoking. ALLERGIES: PENICILLIN. MEDICATIONS: Noted in the nursing notes and were reviewed. PHYSICAL EXAMINATION: GENERAL: The patient is currently lying in a hospital bed in no apparent distress. VITAL SIGNS: Reviewed and found to be unremarkable. The patient is afebrile. HEENT: Pupils equal and reactive to light. NECK: Supple. CHEST: Heart and lungs clear to auscultation. EXTREMITIES: Reveal the presence of an abrasion on the lateral aspect of the right knee measuring 11 x 4 cm, also an abrasion noted on the lateral ankle on the right side about 2 x 1.8 cm, lateral heel 3.5 x 4 cm. There are blackened eschars on the dorsal aspect of the distal second, third, fourth and fifth toes on the right side; second toe measuring 1.6 x 1, third toe 1.7 x 1, fourth toe 2 x 1.4 and the fifth toe 1.6 x 1.5. First toe is 1.4 x 2.5. There is some minimal periwound drainage noted on the second toe. No erythema is present. Capillary refill appears intact. Posterior tibial pulses are present to palpation. There is no edema of the lower extremity noted. NEUROLOGIC: The patient is alert. No apparent focal deficits present. ASSESSMENT: 1. Multiple unstageable pressure ulcers to the right foot first, second, third, fourth and fifth toes. 2. Traumatic wounds to the right knee and right ankle and heel region. PLAN: At this time, no debridement is indicated. The abrasions on the knee, ankle, and heel will be managed with Xeroform and gauze changed daily. The toes will be managed with Betadine. The patient will be monitored as long as she is an inpatient and will be followed up by the outpatient once discharged.
[2016-05-26] MEDS ORDERED: FUROSEMIDE INJ 20 MG in SYRINGE 0 ML IV SCH (17:00)
[2016-05-26] MEDS: FUROSEMIDE INJ 20 MG in SYRINGE 0 ML IV SCH (21:29)
[2016-05-27] VITALS (7 sets, daily range): BP systolic 118–163; BP diastolic 66–73; PULSE 60–83; TEMP 36.6–36.9; O2SAT 90–95
[2016-05-27] MEDS ORDERED: VANCOMYCIN TROUGH SCH (03:30)
[2016-05-27] MEDS: HEPARIN SOD 5000 UNIT/0.5 ML CARP SQ SCH ×3 (05:30→21:11)
[2016-05-27 05:36] LABS: HEMATOCRIT 38.4 % (37-47); MEAN CELL VOLUME 90.8 fL (80-100); MEAN CORPUSCULAR HEMOGLOBIN 29.3 pg (25-34); MEAN CORPUSCULAR HGB CONC 32.3 g/dl (32-36); MEAN PLATELET VOLUME 11.2 fL (7.4-10.4); PLATELET COUNT 256 K/uL (130-400); RED BLOOD COUNT 4.23 M/uL (4.2-5.4); WHITE BLOOD COUNT 7.64 K/uL (4.8-10.8)
[2016-05-27 06:04] LABS: BUN/CREATININE RATIO 17.3 (10-20); CREATININE 0.97 mg/dl (0.60-1.20); POTASSIUM 3.9 mmol/L (3.5-5.1)
[2016-05-27] MEDS: ALBUT/IPRATROP 3MG/0.5MG NEB 3 ML VIAL INH SCH ×4 (06:59→19:01)
[2016-05-27] MEDS ORDERED: LEVOFLOXACIN 500MG / D5W IV SCH (11:00)
--- NOTE | 2016-05-27 20:36 | Family Medicine Progress Note ---
Progress Note Date of Service May 27, 2016. Subjective Pt evaluation today including: conversation w/ patient, physical exam, lab review Pain: Denies Voiding: raman catheter in place Patient was seen at the bedside. She could tell me her name but couldn't tell where she is or the month. Per nurse she is tolerating food well. Denied any complaints today. Constitutional: No fever Respiratory: No cough, No dyspnea at rest, No dyspnea on exertion, No shortness of breath, No wheezing Cardiovascular: No chest pain, No edema Abdomen: No constipation, No diarrhea, No nausea, No pain, No vomiting Medications Current Inpatient Medications Medications (Trade) Dose Ordered Sig/Macy Route Start Time Stop Time Status Last Admin Dose Admin Heparin Sodium (Porcine) 5000 unit 5,000 unit Q8 SQ 05/25/16 06:00 06/24/16 05:59 05/27/16 13:54 5,000 UNIT Acetaminophen/ Empty Bag (Ofirmev IV/ Empty Iv Bag 100ml) 65 ml @ 260 mls/hr Q6H PRN IV 05/25/16 00:00 06/24/16 00:00 Albuterol/ Ipratropium (Duoneb) 3 ml QIDR INH 05/25/16 08:00 06/24/16 07:59 05/27/16 15:18 3 ML Miconazole Nitrate 1 appln 1 appln BID PRN EXT 05/25/16 12:30 06/24/16 12:29 Furosemide 20 mg/ Syringe 2 ml @ 4 mls/min DAILY@2100 IV 05/26/16 21:00 06/25/16 20:59 05/26/16 21:29 4 MLS/MIN Levofloxacin/Prmx (Levaquin / D5W/ Premixed D5W) 100 ml @ 100 mls/hr Q24H IV 05/27/16 11:00 05/30/16 11:59 05/27/16 10:40 100 MLS/HR Objective Vital Signs Date Time Temp Pulse Resp B/P Pulse Ox O2 Delivery O2 Flow Rate FiO2 05/27/16 15:18 83 20 90 Room Air 05/27/16 14:56 36.9 64 20 118/66 91 Room Air 05/27/16 12:00 72 20 95 Room Air 05/27/16 08:00 Room Air 05/27/16 07:06 36.9 62 18 163/69 91 Room Air 05/27/16 06:59 68 20 93 Room Air 05/27/16 00:25 36.6 60 18 154/73 92 Room Air 05/27/16 00:00 Room Air 05/26/16 20:06 70 20 92 Room Air Physical Exam General Appearance: WD/WN, no apparent distress Neck: supple, trachea midline Respiratory/Chest: chest non-tender, no respiratory distress, + crackles, + wheezing Cardiovascular: regular rate, rhythm, no edema, + systolic murmur Abdomen: normal bowel sounds, non tender, soft Extremities: non-tender, no pedal edema Neurologic/Psychiatric: alert, + pertinent finding (demented which seems to be her baseline) Skin: normal color, warm/dry Laboratory Results Results Past 24 Hours Test 05/27/16 05:20 Range/Units White Blood Count 7.64 4.8-10.8 K/uL Red Blood Count 4.23 4.2-5.4 M/uL Hemoglobin 12.4 12.0-16.0 g/dL Hematocrit 38.4 37-47 % Mean Corpuscular Volume 90.8 80-100 fL Mean Corpuscular Hemoglobin 29.3 25-34 pg Mean Corpuscular Hemoglobin Concent 32.3 32-36 g/dl RDW Standard Deviation 53.6 36.4-46.3 fL RDW Coefficient of Variation 16.1 11.5-14.5 % Platelet Count 256 130-400 K/uL Mean Platelet Volume 11.2 7.4-10.4 fL Sodium Level 145 136-145 mmol/L Potassium Level 3.9 3.5-5.1 mmol/L Chloride Level 107 98-107 mmol/L Carbon Dioxide Level 29 21-32 mmol/L Anion Gap 9.0 3-11 mmol/L Blood Urea Nitrogen 17 7-18 mg/dl Creatinine 0.97 0.60-1.20 mg/dl Est Creatinine Clear Calc Drug Dose 34.7 ml/min Estimated GFR () 60.9 Estimated GFR (Non- 52.5 BUN/Creatinine Ratio 17.3 10-20 Random Glucose 101 70-99 mg/dl Calcium Level 8.0 8.5-10.1 mg/dl Assessment and Plan This is an 85 year old female with moderate to severe aortic stenosis, dementia , legally blind and diastolic heart failure presents to the hospital with shortness of breath, productive cough and altered mental consciousness X1day. Patient is clinically improving. 1. Sepsis - Most likely secondary to cellulitis on the right foot - Elevated lactic acid on ED, it is normal now - UA is negative - BCx - no growth 2. Unstageable pressure ulcers on the right foot/cellulitis - Wound care was consulted. Dr. Bourne saw the patient. He recommended no debridement at this time. The toes will be managed with Betadine. - S/p 2days of Vancomycin and Cefepime - Switched her to narrow spectrum antibiotics given no growth on BCx, IV Levaquin 500mg daily (Day#3) for total 5 days. 3. Shortness of breath and productive cough Acute bronchitis - did receive lasix in ED - CXR showed no evidence of pulmonary edema or pneumonia. Patient has no hx of lung disease. Possible reason patient's inability to clear her chest or swallow the saliva. No evidence of aspiration pneumonia on CXR. . - C/w duoneb q6h and q2h prn. - US for DVT was negative in ED - Evaluate by speech therapy and started her on regular diet (mechanical soft) - On room air maintaining oxygen - CXR (05/26) : No acute finding and no change from previous study. No evidence of pneumonia. - Started guaifenesin 600ng BID - Order flutter valve, chest physiotherapy and incentive spirometry 4. Elevated troponin - appears to be her baseline from previous admission and related to her LVH. - EKG does not show any new ischemic changes - Trended down 5. Acute on Chronic diastolic heart failure with moderate to severe aortic stenosis - Conservative management as per Dr Jackson's last consultation, no further echocardiograms needed. - s/p 40mg Lasix in ED - Started IV Lasix 20mg daily - Monitor I/O and BMP tomorrow am 6. VTE Prophylaxis - Heparin 5000 units SQ Q8H 7. Code Status - Full code, no mech ventilation Reviewed: Pt Seen/Exam by Me History resting comfortably in bed. denies any complains. Constitutional: denies: fever Respiratory: negative: short of breath Cardiovascular: denies chest pain General Appearance: no apparent distress (unable to cough up phlegm) Respiratory: no respiratory distress, decreased breath sounds, rhonchi Cardiovascular: regular rate, rhythm Neurologic/Psychiatric: alert, other (oriented to person) Skin Characteristics: other (right foot dressing +) Assessment/Plan I have reviewed the medical record and performed a history and physical examination of this patient today. I have discussed the case with Dr. Robles. The above note reflects my findings, conclusions, and recommendations.
[2016-05-27] MEDS: FUROSEMIDE INJ 20 MG in SYRINGE 0 ML IV SCH (21:10)
[2016-05-27] MEDS: GUAIFENESIN 600 MG TABCR PO SCH (21:10)
[2016-05-28] VITALS (7 sets, daily range): BP systolic 134–155; BP diastolic 65–78; PULSE 58–89; TEMP 36.8–37.1; O2SAT 91–94
[2016-05-28] MEDS: HEPARIN SOD 5000 UNIT/0.5 ML CARP SQ SCH ×3 (06:33→21:29)
[2016-05-28] MEDS: ALBUT/IPRATROP 3MG/0.5MG NEB 3 ML VIAL INH SCH ×4 (07:03→19:27)
[2016-05-28 08:08] LABS: HEMATOCRIT 42.1 % (37-47); MEAN CELL VOLUME 90.7 fL (80-100); MEAN CORPUSCULAR HEMOGLOBIN 29.7 pg (25-34); MEAN CORPUSCULAR HGB CONC 32.8 g/dl (32-36); MEAN PLATELET VOLUME 10.9 fL (7.4-10.4); PLATELET COUNT 270 K/uL (130-400); RED BLOOD COUNT 4.64 M/uL (4.2-5.4); WHITE BLOOD COUNT 6.04 K/uL (4.8-10.8)
[2016-05-28 08:35] LABS: BUN/CREATININE RATIO 18.2 (10-20); CALCIUM 8.3 mg/dl (8.5-10.1); CREATININE 0.89 mg/dl (0.60-1.20); POTASSIUM 4.1 mmol/L (3.5-5.1)
[2016-05-28] MEDS: GUAIFENESIN 600 MG TABCR PO SCH ×2 (08:52→21:18)
--- NOTE | 2016-05-28 15:38 | Family Medicine Progress Note ---
Progress Note Date of Service May 28, 2016. Subjective Pt evaluation today including: conversation w/ patient, physical exam, lab review Pain: Denies Voiding: raman catheter in place Patient was seen at the bedside. She was lying down comfortably on her bed. Her wound on the right foot is improving. Per nurse she is tolerating food well. She denied any complaints today. Constitutional: No fever Respiratory: No cough, No dyspnea on exertion, No shortness of breath Cardiovascular: No chest pain Abdomen: No nausea, No pain, No vomiting Musculoskeletal: No muscle pain Additional Comments: difficult to obtain full ROS given baseline dementia. Medications Current Inpatient Medications Medications (Trade) Dose Ordered Sig/Macy Route Start Time Stop Time Status Last Admin Dose Admin Heparin Sodium (Porcine) 5000 unit 5,000 unit Q8 SQ 05/25/16 06:00 06/24/16 05:59 05/28/16 06:33 5,000 UNIT Acetaminophen/ Empty Bag (Ofirmev IV/ Empty Iv Bag 100ml) 65 ml @ 260 mls/hr Q6H PRN IV 05/25/16 00:00 06/24/16 00:00 Albuterol/ Ipratropium (Duoneb) 3 ml QIDR INH 05/25/16 08:00 06/24/16 07:59 05/28/16 11:09 3 ML Miconazole Nitrate 1 appln 1 appln BID PRN EXT 05/25/16 12:30 06/24/16 12:29 Furosemide/Syringe (Lasix Inj/ Syringe) 2 ml @ 4 mls/min DAILY@2100 IV 05/26/16 21:00 06/25/16 20:59 05/27/16 21:10 4 MLS/MIN Guaifenesin (Mucinex Contr Rel Tab) 600 mg Q12 PO 05/27/16 21:00 06/26/16 20:59 05/28/16 08:52 600 MG Objective Physical Exam General Appearance: no apparent distress Respiratory/Chest: chest non-tender, no respiratory distress, + pertinent finding (coarse breath sounds) Cardiovascular: regular rate, rhythm, + systolic murmur Abdomen: normal bowel sounds, non tender, soft Extremities: non-tender, no pedal edema, + pertinent finding (right foot pressure ulcer improving) Neurologic/Psychiatric: alert, + pertinent finding (demented seems to be her baseline) Skin: normal color, warm/dry Laboratory Results Results Past 24 Hours Test 05/28/16 07:56 Range/Units White Blood Count 6.04 4.8-10.8 K/uL Red Blood Count 4.64 4.2-5.4 M/uL Hemoglobin 13.8 12.0-16.0 g/dL Hematocrit 42.1 37-47 % Mean Corpuscular Volume 90.7 80-100 fL Mean Corpuscular Hemoglobin 29.7 25-34 pg Mean Corpuscular Hemoglobin Concent 32.8 32-36 g/dl RDW Standard Deviation 54.1 36.4-46.3 fL RDW Coefficient of Variation 16.3 11.5-14.5 % Platelet Count 270 130-400 K/uL Mean Platelet Volume 10.9 7.4-10.4 fL Sodium Level 142 136-145 mmol/L Potassium Level 4.1 3.5-5.1 mmol/L Chloride Level 105 98-107 mmol/L Carbon Dioxide Level 28 21-32 mmol/L Anion Gap 9.0 3-11 mmol/L Blood Urea Nitrogen 16 7-18 mg/dl Creatinine 0.89 0.60-1.20 mg/dl Est Creatinine Clear Calc Drug Dose 37.8 ml/min Estimated GFR () 67.5 Estimated GFR (Non- 58.3 BUN/Creatinine Ratio 18.2 10-20 Random Glucose 97 70-99 mg/dl Calcium Level 8.3 8.5-10.1 mg/dl Assessment and Plan This is an 85 year old female with moderate to severe aortic stenosis, dementia , legally blind and diastolic heart failure presents to the hospital with shortness of breath, productive cough and altered mental consciousness X1day. Patient is clinically improving. 1. Sepsis - Most likely secondary to cellulitis on the right foot - Elevated lactic acid on ED, it is normal now - UA is negative - BCx - no growth 2. Unstageable pressure ulcers on the right foot/cellulitis - Wound care was consulted. Dr. Bourne saw the patient. He recommended no debridement at this time. The toes will be managed with Betadine. - S/p 2days of Vancomycin and Cefepime - Stopped Levaquin 500mg given negative blood culture. 3. Shortness of breath and productive cough Acute bronchitis - did receive lasix in ED - CXR showed no evidence of pulmonary edema or pneumonia. Patient has no hx of lung disease. Possible reason patient's inability to clear her chest or swallow the saliva. No evidence of aspiration pneumonia on CXR. . - C/w duoneb q6h and q2h prn. - US for DVT was negative in ED - Evaluate by speech therapy and started her on regular diet (mechanical soft) - On room air maintaining oxygen - CXR (05/26) : No acute finding and no change from previous study. No evidence of pneumonia. - Started guaifenesin 600ng BID - Order flutter valve, chest physiotherapy and incentive spirometry 4. Elevated troponin - appears to be her baseline from previous admission and related to her LVH. - EKG does not show any new ischemic changes - Trended down 5. Acute on Chronic diastolic heart failure with moderate to severe aortic stenosis - Conservative management as per Dr Jackson's last consultation, no further echocardiograms needed. - s/p 40mg Lasix in ED - Started IV Lasix 20mg daily - Monitor I/O and BMP tomorrow am Dementia - supportive care 6. VTE Prophylaxis - Heparin 5000 units SQ Q8H 7. Code Status - Full code, no mech ventilation PT/OT was consulted Dispo: Case management spoke with the family for option like rehab in SNF; however, family preferred discharge home with home service. Patient was plan to discharge home today; however, according to the [id number] the two caregivers are sick and they requested to be discharge on Tuesday. Plan to discharge on Tuesday. Reviewed: Pt Seen/Exam by Me History feeling better today. unable to give much history though Constitutional: denies: fever Respiratory: negative: short of breath General Appearance: no apparent distress (more alert today) Respiratory: no respiratory distress, decreased breath sounds, rhonchi Cardiovascular: regular rate, rhythm Neurologic/Psychiatric: alert Skin Characteristics: warm/dry, other (right foot - frostbite wounds healing well) Assessment/Plan I have reviewed the medical record and performed a history and physical examination of this patient today. I have discussed the case with Dr. Robles. The above note reflects my findings, conclusions, and recommendations.
[2016-05-28] MEDS: FUROSEMIDE INJ 20 MG in SYRINGE 0 ML IV SCH (21:18)
[2016-05-29] VITALS (9 sets, daily range): BP systolic 106–145; BP diastolic 60–75; PULSE 56–87; TEMP 36.5–36.9; O2SAT 90–94
[2016-05-29] MEDS: HEPARIN SOD 5000 UNIT/0.5 ML CARP SQ SCH ×3 (05:51→20:39)
[2016-05-29] MEDS: ALBUT/IPRATROP 3MG/0.5MG NEB 3 ML VIAL INH SCH ×4 (07:21→19:48)
[2016-05-29 07:59] LABS: HEMATOCRIT 43.4 % (37-47); MEAN CELL VOLUME 89.3 fL (80-100); MEAN CORPUSCULAR HEMOGLOBIN 28.6 pg (25-34); MEAN PLATELET VOLUME 10.9 fL (7.4-10.4); PLATELET COUNT 263 K/uL (130-400); RED BLOOD COUNT 4.86 M/uL (4.2-5.4); WHITE BLOOD COUNT 6.13 K/uL (4.8-10.8)
[2016-05-29] MEDS: GUAIFENESIN 600 MG TABCR PO SCH ×2 (08:09→20:51)
[2016-05-29 08:24] LABS: BUN/CREATININE RATIO 22.5 (10-20); CALCIUM 8.2 mg/dl (8.5-10.1); CREATININE 0.88 mg/dl (0.60-1.20); POTASSIUM 4.1 mmol/L (3.5-5.1)
[2016-05-29] MEDS ORDERED: MAGNESIUM HYDROXIDE SUSP 30 ML UDC PO PRN (09:00)
[2016-05-29] MEDS ORDERED: POLYETHYLENE (MIRALAX) 17 GM PACK PO PRN (09:00)
[2016-05-29] MEDS ORDERED: LEVOFLOXACIN 500 MG TAB PO ONE (09:00)
[2016-05-29] MEDS ORDERED: ALUMINUM/MAGNESIUM/SIMETH (MAALOX MAX) 30 ML UDC PO PRN (09:00)
--- NOTE | 2016-05-29 09:01 | Family Medicine Progress Note ---
Progress Note Date of Service May 29, 2016. Subjective Pt evaluation today including: conversation w/ patient, conversation w/ family , physical exam, chart review, lab review, review of studies, review of inpatient medication list Pain: none PO Intake: adequate Voiding: raman catheter in place Patient seemed confused, Aox1, but was able to respond to questions. reports ongoing cough. She denies, CP, SOB, numbness weakness, tingling. She denies feeling constipation though she hadn't had Bowel movement in 5 days. Constitutional: No chills, No fever, No weakness Eyes: + problem reported (legally blind) Respiratory: + cough, + wheezing, No shortness of breath Cardiovascular: No chest pain, No edema, No palpitations Abdomen: No nausea, No pain, No vomiting Musculoskeletal: No calf pain, No swelling Female : + problem reported (has raman catheter), No hematuria Neurologic: No numbness/tingling, No paralysis, No weakness Endo: No excessive urination, No fatigue Skin: No itch, No new/changing skin lesions, No rash Medications Current Inpatient Medications Medications (Trade) Dose Ordered Sig/Macy Route Start Time Stop Time Status Last Admin Dose Admin Heparin Sodium (Porcine) 5000 unit 5,000 unit Q8 SQ 05/25/16 06:00 06/24/16 05:59 05/29/16 05:51 5,000 UNIT Acetaminophen/ Empty Bag (Ofirmev IV/ Empty Iv Bag 100ml) 65 ml @ 260 mls/hr Q6H PRN IV 05/25/16 00:00 06/24/16 00:00 Albuterol/ Ipratropium (Duoneb) 3 ml QIDR INH 05/25/16 08:00 06/24/16 07:59 05/29/16 07:21 3 ML Miconazole Nitrate 1 appln 1 appln BID PRN EXT 05/25/16 12:30 06/24/16 12:29 Furosemide/Syringe (Lasix Inj/ Syringe) 2 ml @ 4 mls/min DAILY@2100 IV 05/26/16 21:00 06/25/16 20:59 05/28/16 21:18 4 MLS/MIN Guaifenesin (Mucinex Contr Rel Tab) 600 mg Q12 PO 05/27/16 21:00 06/26/16 20:59 05/29/16 08:09 600 MG Levofloxacin (Levaquin Tab) 500 mg ONE ONCE PO 05/29/16 09:00 05/29/16 09:01 05/29/16 08:08 500 MG Objective Vital Signs Date Time Temp Pulse Resp B/P Pulse Ox O2 Delivery O2 Flow Rate FiO2 05/29/16 15:24 36.9 72 18 106/60 05/29/16 14:35 66 18 94 Room Air 05/29/16 11:22 65 18 92 Room Air 05/29/16 08:00 Room Air 05/29/16 07:29 36.7 56 16 145/75 94 Room Air 05/29/16 07:21 58 18 94 Room Air 05/29/16 00:08 36.5 87 20 126/66 90 Room Air 05/29/16 00:00 93 Room Air 05/28/16 19:27 58 18 93 Room Air 05/28/16 15:57 36.8 60 22 145/78 94 Physical Exam General Appearance: WD/WN, no apparent distress Eyes: PERRL Neck: supple, no JVD, no carotid bruits, trachea midline Respiratory/Chest: no respiratory distress, no accessory muscle use, + pertinent finding (Bilateral wheeze) Cardiovascular: regular rate, rhythm, no edema, + systolic murmur Abdomen: normal bowel sounds, non tender, soft, no organomegaly Extremities: non-tender, no pedal edema, no calf tenderness Skin: normal color, warm/dry, no rash Laboratory Results Results Past 24 Hours Test 05/29/16 07:16 Range/Units White Blood Count 6.13 4.8-10.8 K/uL Red Blood Count 4.86 4.2-5.4 M/uL Hemoglobin 13.9 12.0-16.0 g/dL Hematocrit 43.4 37-47 % Mean Corpuscular Volume 89.3 80-100 fL Mean Corpuscular Hemoglobin 28.6 25-34 pg Mean Corpuscular Hemoglobin Concent 32.0 32-36 g/dl RDW Standard Deviation 53.0 36.4-46.3 fL RDW Coefficient of Variation 16.1 11.5-14.5 % Platelet Count 263 130-400 K/uL Mean Platelet Volume 10.9 7.4-10.4 fL Sodium Level 143 136-145 mmol/L Potassium Level 4.1 3.5-5.1 mmol/L Chloride Level 104 98-107 mmol/L Carbon Dioxide Level 30 21-32 mmol/L Anion Gap 9.0 3-11 mmol/L Blood Urea Nitrogen 20 7-18 mg/dl Creatinine 0.88 0.60-1.20 mg/dl Est Creatinine Clear Calc Drug Dose 38.2 ml/min Estimated GFR () 68.5 Estimated GFR (Non- 59.1 BUN/Creatinine Ratio 22.5 10-20 Random Glucose 92 70-99 mg/dl Calcium Level 8.2 8.5-10.1 mg/dl Assessment and Plan 85 yo F w. hx of Dementia, Blindness, Severe Aortic Stenosis, Diastolic Heart Failure p/w Altered Mental Status, hypothermia (89degrees) cellulitis of RLE while on Keflex at home, admitted for Sepsis. Sepsis - improved, currently stable, afebrile, Nl WCC, BCx - no growth to date - likely secondary to cellulitis on the Right foot - Elevated lactic acid on ED, resolved - Continue to monitor Pressure ulcers on the right foot/cellulitis - Continue with wound care - d/c'd after 2days of Vancomycin and Cefepime - d/c'd Levaquin 500mg given negative blood culture. Constipation - NO BM in 5 days - ordered PRN Milk of Magnesia, Miralax SOB and Cough - sec to acute bronchitis - cough persists, haris wheezing on exam - C/w duoneb q6h and q2h prn. - Evaluate by speech therapy and started her on regular diet (mechanical soft) - CXR (05/26) : No acute finding and no change from previous study. No evidence of pneumonia. - Continue guaifenesin 600ng BID - Discussed with Respiratory, will attempt chest physiotherapy - Continue incentive spirometry Elevated troponin - stable at baseline from previous admission and related to her LVH. - no acute ischemic changes on EKG Acute on Chronic diastolic heart failure, Moderate to severe aortic stenosis - Conservative management as per Dr Jackson's last consultation, no further echocardiograms needed. - s/p 40mg Lasix in ED - Continue IV Lasix 20mg daily - F/i I/O and BMP tomorrow am Dementia - supportive care VTE Prophylaxis - Heparin 5000 units SQ Q8H Code Status - Full code, no mech ventilation Discharge planning: home Resident Tracking Resident Involvement: Resident Care Provided Care Provided: Adult Hospital Medicine Reviewed: Pt Seen/Exam by Me History no new concerns. sitting in chair family at bedside Constitutional: denies: fever Respiratory: negative: short of breath Cardiovascular: denies chest pain General Appearance: no apparent distress Respiratory: no respiratory distress, rhonchi, wheezing Cardiovascular: regular rate, rhythm Neurologic/Psychiatric: alert Assessment/Plan I have reviewed the medical record and performed a history and physical examination of this patient today. I have discussed the case with Dr. Oropeza. The above note reflects my findings, conclusions, and recommendations.
[2016-05-29] MEDS: FUROSEMIDE INJ 20 MG in SYRINGE 0 ML IV SCH (20:51)
[2016-05-30] VITALS (7 sets, daily range): BP systolic 115–141; BP diastolic 61–83; PULSE 58–70; TEMP 36.6–37.2; O2SAT 90–93
[2016-05-30] MEDS: HEPARIN SOD 5000 UNIT/0.5 ML CARP SQ SCH ×3 (05:52→20:20)
[2016-05-30] MEDS: ALBUT/IPRATROP 3MG/0.5MG NEB 3 ML VIAL INH SCH ×4 (07:18→19:46)
[2016-05-30] MEDS: GUAIFENESIN 600 MG TABCR PO SCH ×2 (08:37→20:20)
[2016-05-30 10:43] LABS: HEMATOCRIT 42.9 % (37-47); MEAN CELL VOLUME 90.5 fL (80-100); MEAN CORPUSCULAR HGB CONC 33.1 g/dl (32-36); MEAN PLATELET VOLUME 10.6 fL (7.4-10.4); PLATELET COUNT 241 K/uL (130-400); RED BLOOD COUNT 4.74 M/uL (4.2-5.4)
[2016-05-30 11:04] LABS: BUN/CREATININE RATIO 25.2 (10-20); CALCIUM 8.3 mg/dl (8.5-10.1); CREATININE 0.98 mg/dl (0.60-1.20); POTASSIUM 4.2 mmol/L (3.5-5.1)
--- NOTE | 2016-05-30 17:22 | Family Medicine Progress Note ---
Progress Note Date of Service May 30, 2016. Subjective Pt evaluation today including: conversation w/ patient, conversation w/ family , physical exam, chart review, lab review, review of studies, review of inpatient medication list Pain: denies pain PO Intake: adequate Voiding: raman catheter in place Patient remains very confused but after speaking to family, this may be her baseline. She responded yes or no to questions but responses may be unreliable. Per nurse, no acute events overnight. She does deny CP, SOB, Palpitation. She is experiencing cough. Additional Comments: Constitutional: No chills, No fever, No weakness Eyes: + problem reported (legally blind) Respiratory: + cough, + wheezing, No shortness of breath Cardiovascular: No chest pain, No edema, No palpitations Abdomen: No nausea, No pain, No vomiting Musculoskeletal: No calf pain, No swelling Female : + problem reported (has raman catheter), No hematuria Neurologic: No numbness/tingling, No paralysis, No weakness Endo: No excessive urination, No fatigue Skin: No itch, No new/changing skin lesions, No rash Medications Current Inpatient Medications Medications (Trade) Dose Ordered Sig/Macy Route Start Time Stop Time Status Last Admin Dose Admin Heparin Sodium (Porcine) 5000 unit 5,000 unit Q8 SQ 05/25/16 06:00 06/24/16 05:59 05/29/16 05:51 5,000 UNIT Acetaminophen/ Empty Bag (Ofirmev IV/ Empty Iv Bag 100ml) 65 ml @ 260 mls/hr Q6H PRN IV 05/25/16 00:00 06/24/16 00:00 Albuterol/ Ipratropium (Duoneb) 3 ml QIDR INH 05/25/16 08:00 06/24/16 07:59 05/30/16 15:29 3 ML Miconazole Nitrate 1 appln 1 appln BID PRN EXT 05/25/16 12:30 06/24/16 12:29 Furosemide/Syringe (Lasix Inj/ Syringe) 2 ml @ 4 mls/min DAILY@2100 IV 05/26/16 21:00 06/25/16 20:59 05/29/16 20:51 4 MLS/MIN Guaifenesin (Mucinex Contr Rel Tab) 600 mg Q12 PO 05/27/16 21:00 06/26/16 20:59 05/30/16 08:37 600 MG Al Hydrox/Mg Hydrox/Simethicone (Maalox Max Susp) 15 ml Q4H PRN PO 05/29/16 09:00 06/28/16 08:59 Magnesium Hydroxide (Milk Of Magnesia Susp) 30 ml Q6H PRN PO 05/29/16 09:00 06/28/16 08:59 05/29/16 10:26 30 ML Polyethylene (Miralax Powder Packet) 17 gm DAILY PRN PO 05/29/16 09:00 06/28/16 08:59 05/29/16 10:26 17 GM Objective Vital Signs Date Time Temp Pulse Resp B/P Pulse Ox O2 Delivery O2 Flow Rate FiO2 05/30/16 16:24 37.2 60 18 120/61 92 Room Air 05/30/16 16:00 Room Air 05/30/16 11:43 59 18 93 Room Air 05/30/16 08:00 Room Air 05/30/16 07:20 61 18 92 Room Air 05/30/16 07:19 36.7 58 16 115/72 91 Room Air 05/30/16 00:00 90 Room Air 05/29/16 22:57 36.6 60 16 106/60 92 Room Air 05/29/16 19:48 57 18 90 Room Air Physical Exam General Appearance: WD/WN, no apparent distress Notes: General Appearance: WD/WN, no apparent distress Eyes: PERRL Neck: supple, no JVD, no carotid bruits, trachea midline Respiratory/Chest: no respiratory distress, no accessory muscle use, + pertinent finding (Bilateral wheeze) Cardiovascular: regular rate, rhythm, no edema, + systolic murmur Abdomen: normal bowel sounds, non tender, soft, no organomegaly Extremities: non-tender, no pedal edema, no calf tenderness Skin: normal color, warm/dry, no rash Laboratory Results Results Past 24 Hours Test 05/30/16 10:34 Range/Units White Blood Count 7.90 4.8-10.8 K/uL Red Blood Count 4.74 4.2-5.4 M/uL Hemoglobin 14.2 12.0-16.0 g/dL Hematocrit 42.9 37-47 % Mean Corpuscular Volume 90.5 80-100 fL Mean Corpuscular Hemoglobin 30.0 25-34 pg Mean Corpuscular Hemoglobin Concent 33.1 32-36 g/dl RDW Standard Deviation 53.9 36.4-46.3 fL RDW Coefficient of Variation 16.3 11.5-14.5 % Platelet Count 241 130-400 K/uL Mean Platelet Volume 10.6 7.4-10.4 fL Sodium Level 142 136-145 mmol/L Potassium Level 4.2 3.5-5.1 mmol/L Chloride Level 105 98-107 mmol/L Carbon Dioxide Level 29 21-32 mmol/L Anion Gap 8.0 3-11 mmol/L Blood Urea Nitrogen 25 7-18 mg/dl Creatinine 0.98 0.60-1.20 mg/dl Est Creatinine Clear Calc Drug Dose 34.3 ml/min Estimated GFR () 60.1 Estimated GFR (Non- 51.9 BUN/Creatinine Ratio 25.2 10-20 Random Glucose 102 70-99 mg/dl Calcium Level 8.3 8.5-10.1 mg/dl Assessment and Plan 85 yo F w. hx of Dementia, Blindness, Severe Aortic Stenosis, Diastolic Heart Failure p/w Altered Mental Status, hypothermia (89degrees) cellulitis of RLE while on Keflex at home, admitted for Sepsis. Sepsis - improved, currently stable, afebrile, Nl WCC, BCx - no growth to date - likely secondary to cellulitis on the Right foot - Elevated lactic acid on ED, resolved - Continue to monitor Pressure ulcers on the right foot/cellulitis - Continue with wound care - d/c'd after 2days of Vancomycin and Cefepime - d/c'd Levaquin 500mg given negative blood culture. Constipation - resolved, s/p Milk of Magnesia, Miralax SOB and Cough - sec to acute bronchitis - cough persists, haris wheezing on exam - C/w duoneb q6h and q2h prn. - Evaluate by speech therapy and started her on regular diet (mechanical soft) - CXR (05/26) : No acute finding and no change from previous study. No evidence of pneumonia. - Continue guaifenesin 600ng BID - Continue chest physiotherapy - Continue incentive spirometry Elevated troponin - stable at baseline from previous admission and related to her LVH. - no acute ischemic changes on EKG Acute on Chronic diastolic heart failure, Moderate to severe aortic stenosis - Conservative management as per Dr Eaton's last consultation, no further echocardiograms needed. - s/p 40mg Lasix in ED - Continue IV Lasix 20mg daily - F/U I/O and BMP tomorrow am Dementia - supportive care VTE Prophylaxis - Heparin 5000 units SQ Q8H Code Status - Full code, no mech ventilation Family prefers to have patient remain at home with [facility] Discharge planning: home Resident Tracking Resident Involvement: Resident Care Provided Care Provided: Adult Hospital Medicine Reviewed: Pt Seen/Exam by Me History unable to get any history per respiratory therapist - able to use flutter valve. Constitutional: denies: fever General Appearance: no apparent distress Respiratory: no respiratory distress, rhonchi (less than yesterday) Cardiovascular: regular rate, rhythm Neurologic/Psychiatric: alert Skin Characteristics: warm/dry Assessment/Plan I have reviewed the medical record and performed a history and physical examination of this patient today. I have discussed the case with Dr. Oropeza. The above note reflects my findings, conclusions, and recommendations. unable to cough up phlegm continue aggressive pul toilet. anticipate d/c home in am with home health services.
[2016-05-30] MEDS: FUROSEMIDE INJ 20 MG in SYRINGE 0 ML IV SCH (20:19)
[2016-05-31] VITALS (9 sets, daily range): BP systolic 103–125; BP diastolic 68–69; PULSE 50–71; TEMP 36.4–36.5; O2SAT 90–95
[2016-05-31] MEDS: HEPARIN SOD 5000 UNIT/0.5 ML CARP SQ SCH (05:21)
[2016-05-31] MEDS: ALBUT/IPRATROP 3MG/0.5MG NEB 3 ML VIAL INH SCH ×3 (07:27→15:32)
[2016-05-31] MEDS: GUAIFENESIN 600 MG TABCR PO SCH (08:29)
[2016-05-31 10:09] LABS: HEMATOCRIT 45.6 % (37-47); MEAN CELL VOLUME 90.7 fL (80-100); MEAN PLATELET VOLUME 10.9 fL (7.4-10.4); PLATELET COUNT 253 K/uL (130-400); RED BLOOD COUNT 5.03 M/uL (4.2-5.4); WHITE BLOOD COUNT 10.18 K/uL (4.8-10.8)
[2016-05-31 10:35] LABS: CALCIUM 8.5 mg/dl (8.5-10.1); POTASSIUM 4.1 mmol/L (3.5-5.1)
--- NOTE | 2016-05-31 11:20 | Family Medicine Progress Note ---
Progress Note Date of Service May 31, 2016. Subjective Pt evaluation today including: conversation w/ patient, conversation w/ family , physical exam Medications Current Inpatient Medications Medications (Trade) Dose Ordered Sig/Macy Route Start Time Stop Time Status Last Admin Dose Admin Heparin Sodium (Porcine) 5000 unit 5,000 unit Q8 SQ 05/25/16 06:00 06/24/16 05:59 05/29/16 05:51 5,000 UNIT Acetaminophen/ Empty Bag (Ofirmev IV/ Empty Iv Bag 100ml) 65 ml @ 260 mls/hr Q6H PRN IV 05/25/16 00:00 06/24/16 00:00 Albuterol/ Ipratropium (Duoneb) 3 ml QIDR INH 05/25/16 08:00 06/24/16 07:59 05/31/16 07:27 3 ML Miconazole Nitrate 1 appln 1 appln BID PRN EXT 05/25/16 12:30 06/24/16 12:29 Furosemide/Syringe (Lasix Inj/ Syringe) 2 ml @ 4 mls/min DAILY@2100 IV 05/26/16 21:00 06/25/16 20:59 05/30/16 20:19 4 MLS/MIN Guaifenesin (Mucinex Contr Rel Tab) 600 mg Q12 PO 05/27/16 21:00 06/26/16 20:59 05/31/16 08:29 600 MG Al Hydrox/Mg Hydrox/Simethicone (Maalox Max Susp) 15 ml Q4H PRN PO 05/29/16 09:00 06/28/16 08:59 Magnesium Hydroxide (Milk Of Magnesia Susp) 30 ml Q6H PRN PO 05/29/16 09:00 06/28/16 08:59 05/29/16 10:26 30 ML Polyethylene (Miralax Powder Packet) 17 gm DAILY PRN PO 05/29/16 09:00 06/28/16 08:59 05/29/16 10:26 17 GM
--- NOTE | 2016-05-31 16:54 | Discharge Instructions ---
Discharge Instructions Date of Service May 31, 2016. (Rohith Oropeza MD) Admission Reason for Admission: Altered Mental Status, Aortic Stenosis, Sepsis, (Rohith Oropeza MD) Discharge Discharge Diagnosis / Problem: Altered Mental Status, Cellulitis of Rigth Lower Extremity, Sepsis (Rohith Oropeza MD) Discharge Goals Goal(s): Decrease discomfort, Improve function, Increase independence, Improve disease control (Rohith Oropeza MD) Activity Recommendations Activity Limitations: resume your previous activity . (Rohith Oropeza MD) Instructions / Follow-Up Instructions / Follow-Up You came in with increased confusion and were found to have an infection of soft tissue of the Right Lower extremity known ( also known as cellulitis) which spread through pressure ulcers on the Right foot. You were treated with antibiotics and wound care. -Followup with Primary care Provider following discharge - Home health with 24 hr care - You will need ongoing wound care with daily dress changing of Zeroform and gauze . - Please contact clinic if you notice increasing pain, redness , swelling or fever. (Rohith Oropeza MD) Current Hospital Diet Patient's current hospital diet: N/A, AHA Diet (Heart Healthy) (Rohith Oropeza MD) Discharge Diet Recommended Diet: Regular Diet (Rohith Oropeza MD) Pending Studies Studies pending at discharge: no (Rohith Oropeza MD) Medical Emergencies . Who to Call and When: Medical Emergencies: If at any time you feel your situation is an emergency, please call 911 immediately. . (Rohith Oropeza MD) Non-Emergent Contact Non-Emergency issues call your: Primary Care Provider Call Non-Emergent contact if: you have a fever, your pain is not controlled, your pain is worsening, wound has increased drainage, wound has increased redness, wound has increased pain, you have any medication questions . (Rohith Oropeza MD) . "Provider Documentation" section prepared by Rohith Oropeza. (Rohith Oropeza MD) VTE Core Measure Inpt VTE Proph given/why not?: Unfractionated heparin SQ, T.E.D. Stockings, SCD 's (Rohith Oropeza MD)
--- NOTE | 2016-05-31 19:04 | Discharge Summary ---
Discharge Summary Date of Service May 31, 2016. Discharge Summary Admission Date: May 24, 2016 at 23:54 Discharge Date: May 31, 2016 Discharge Disposition: Home with services Principal Diagnosis: Sepsis Problems/Secondary Diagnoses: Altered Mentals Status RLE Cellulitis Procedures: ULTRASOUND RIGHT LOWER EXTREMITY VENOUS CLINICAL HISTORY: Right leg swelling. COMPARISON STUDY: No priors. TECHNIQUE: Real-time, grayscale, and color Doppler sonography of the deep veins of the right lower extremity was performed from the inguinal crease to the calf. Compression and augmentation were utilized. FINDINGS: There is no sonographic evidence of deep venous thrombosis identified in the right lower extremity. The common femoral, superficial femoral, and popliteal veins are patent and normally compressible. The greater saphenous vein and the profunda femoris vein at the junction with the common femoral vein are clear. The visualized calf veins are patent. IMPRESSION: There is no sonographic evidence of deep venous thrombosis identified in the right lower extremity. SINGLE VIEW CHEST CLINICAL HISTORY: Fall. Change in mental status. FINDINGS: An AP, portable, upright chest radiograph is compared to study dated 05/21/2016. The examination is degraded by portable technique and patient rotation. The heart is mildly enlarged and there is atherosclerotic calcification of the thoracic aorta. The pulmonary vasculature is noncongested. Chronic interstitial thickening and elevation of the right hemidiaphragm are unchanged. No airspace consolidation, pleural effusion, or pneumothorax is seen. The skeletal structures are osteopenic. The bony thorax is grossly intact. A right shoulder arthroplasty is in place. Degenerative change is noted throughout the thoracic spine. IMPRESSION: Cardiac enlargement with no acute cardiopulmonary abnormality. SINGLE VIEW CHEST CLINICAL HISTORY: Dyspnea. FINDINGS: An AP, portable, upright chest radiograph is compared to study dated 05/24/2016. The examination is degraded by portable technique and patient rotation. The heart is mildly enlarged and there is atherosclerotic calcification of the thoracic aorta. The pulmonary vasculature is noncongested. Chronic interstitial thickening and elevation of the right hemidiaphragm are unchanged. There is minimal left basilar atelectasis. No airspace consolidation, pleural effusion, or pneumothorax is seen. The skeletal structures are osteopenic. The bony thorax is grossly intact. A right shoulder arthroplasty is in place. Degenerative change is noted throughout the thoracic spine. IMPRESSION: Cardiac enlargement with no acute cardiopulmonary abnormality. There has been no significant change from yesterday. ] RIGHT KNEE 2 VIEWS CLINICAL HISTORY: Right knee pain. FINDINGS: AP and crosstable lateral views of the right knee are compared to study dated 05/21/2016. The skeletal structures are osteopenic. No fracture is seen. There is moderate tricompartmental degenerative joint space narrowing, greatest in the medial and patellofemoral compartments. There are large patellar enthesophytes as well as small marginal osteophytes and degenerative beaking of the tibial spine. No joint effusion is seen. Mild soft tissue swelling is present around the ankle. There is advanced atherosclerotic calcification of the popliteal artery. IMPRESSION: 1. Mild soft tissue swelling with no acute bony abnormality seen in the right knee. No change from study performed 4 days previously. 2. Osteopenia and arthritic change as above. ] RIGHT FOOT 3 VIEWS HISTORY: Right foot pain. trauma COMPARISON: None. FINDINGS: There is no fracture or dislocation. Posterior calcaneal spur. 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 The Lisfranc joint is intact. Soft tissue swelling at the ankle. No radiopaque foreign bodies. IMPRESSION: No acute fracture or dislocation within the right foot. RIGHT ANKLE 3 VIEWS CLINICAL HISTORY: Right ankle pain. FINDINGS: 3 views of the right ankle are obtained. No prior studies are available for comparison at the time of dictation. The skeletal structures are osteopenic. No fracture is seen. The ankle mortise is intact. A large dorsal calcaneal enthesophyte is observed. There is no ankle joint effusion. Regional soft tissue edema is noted. There is atherosclerotic calcification regional arteries. Degenerative spurring is seen along the dorsal aspect of the tarsal bones. IMPRESSION: 1. Soft tissue edema with no radiographic evidence of right ankle fracture. 2. Osteopenia and degenerative change as above. CHEST ONE VIEW PORTABLE HISTORY: Short of breath. COMPARISON: Chest 05/25/2016. FINDINGS: The heart remains mildly enlarged. Stable mild elevation the right hemidiaphragm. No focal lung consolidations to suggest pneumonia. No evidence for pulmonary edema. No pleural effusions. No pneumothorax. There is a right shoulder prosthesis. IMPRESSION: No significant change compared to the prior study. No acute process. Stable mild cardiomegaly. Medication Reconciliation Continued Medications: Furosemide (Lasix) 20 Mg Tab 20 MG PO BID Potassium Chloride (Micro-K Ext Rel) 10 Meq Capcr 10 MEQ PO BID, CAP Discontinued Medications: Cephalexin Monohydrate (Cephalexin) 500 Mg Cap 500 MG PO QID for 7 Days, #28 CAP Discharge Exam Constitutional: No chills, No fever, No weakness Eyes: + problem reported (legally blind) Respiratory: + cough, No shortness of breath Cardiovascular: No chest pain, No edema, No palpitations Abdomen: No nausea, No pain, No vomiting Musculoskeletal: No calf pain, No swelling Female : + problem reported (has raman catheter), No hematuria Neurologic: No numbness/tingling, No paralysis, No weakness Endo: No excessive urination, No fatigue Skin: No itch, No new/changing skin lesions, No rash General Appearance: WD/WN, no apparent distress Eyes: PERRL Neck: supple, no JVD, no carotid bruits, trachea midline Respiratory/Chest: no respiratory distress, no accessory muscle use, + pertinent finding (coarse breath sounds, improved from previous) Cardiovascular: regular rate, rhythm, no edema, + systolic murmur Abdomen: normal bowel sounds, non tender, soft, no organomegaly Extremities: non-tender, no pedal edema, no calf tenderness RLE, foot in bandage. no evidence of erythema extending beyond bandage. Skin: normal color, warm/dry, no rash Hospital Course 85 yo F w. hx of Dementia, Blindness, Severe Aortic Stenosis, Diastolic Heart Failure p/w Altered Mental Status, hypothermia (89degrees) cellulitis of RLE while on Keflex at home, admitted for Sepsis. Sepsis - likely secondary to cellulitis on the Right foot due ti infected pressure ulcers of right foot - Elevated lactic acid on ED -treated with Vancomycin and Cefepime - Switched her to narrow spectrum antibiotics given no growth on BCx, IV Levaquin 500mg daily total of 5 days. - Stopped Levaquin 500mg given negative blood culture. - improved, currently stable, afebrile, Nl WCC, BCx - no growth to date Pressure ulcers on the right foot/cellulitis - wound care consulted SOB and Cough - sec to acute bronchitis - cough haris wheezing on exam - given duoneb q6h and q2h prn. - Evaluated by speech therapy and started her on regular diet (mechanical soft) - CXR (05/26) : No acute finding and no change from previous study. No evidence of pneumonia. - Started her on guaifenesin 600ng BID - Started chest physiotherapy - Started incentive spirometry Elevated troponin - stable at baseline from previous admission and related to her LVH. - no acute ischemic changes on EKG Acute on Chronic diastolic heart failure, Moderate to severe aortic stenosis - Conservative management as per Dr Jackson's last consultation, no further echocardiograms recommended - s/p 40mg Lasix in ED - Continue IV Lasix 20mg daily - F/U I/O and BMP tomorrow am Dementia - supportive care VTE Prophylaxis - Heparin 5000 units SQ Q8H Total Time Spent: Less than 30 minutes This includes examination of the patient, discharge planning, medication reconciliation, and communication with other providers. Discharge Instructions Please refer to the electronic Patient Visit Report (Discharge Instructions) for additional information.
[2016-06-08] MEDS ORDERED: CEPH500C PO (11:04)
[2016-09-24] MEDS ORDERED: FURO-85 PO (08:46)
[2016-09-24] MEDS ORDERED: POTA10CA28 PO (08:46)
== END 2016-05-31 16:48 | disposition home health service (06) | DRG 871 ==
LOC: ENRESERVDT → ENRESERVTM → EDBD 20:48 → C.EDB 20:49 → C.2T 23:54 → C.MS4W 05-26 10:57
PROVIDERS: ADMIT Hospitalist; ATTEND Family Medicine
DX: A41.9 Sepsis, unspecified organism (principal); J69.0 Pneumonitis due to inhalation of food and vomit; I50.33 Acute on chronic diastolic (congestive) heart failure; L03.115 Cellulitis of right lower limb; J20.9 Acute bronchitis, unspecified; E78.5 Hyperlipidemia, unspecified; H54.8 Legal blindness, as defined in USA; I35.0 Nonrheumatic aortic (valve) stenosis; F03.90 Unspecified dementia, unspecified severity, without behavioral disturbance, psychotic disturbance, mood disturbance, and anxiety; L89.890 Pressure ulcer of other site, unstageable; I25.10 Atherosclerotic heart disease of native coronary artery without angina pectoris; R79.89 Other specified abnormal findings of blood chemistry; R74.0 Nonspecific elevation of levels of transaminase and lactic acid dehydrogenase [LDH]; R53.81 Other malaise; K59.00 Constipation, unspecified; I11.0 Hypertensive heart disease with heart failure; R41.82 Altered mental status, unspecified; R06.2 Wheezing; Z79.899 Other long term (current) drug therapy

== ENCOUNTER → 2016-07-02 | Outpatient (CLI) | payer OTHER ==
[~2016-07-02] MED LIST changes: +BCTCR/30 TOP; +CEPH500C PO; +CIPR1TAB10 PO; +FURO-85 PO; -KFL500 PO; +POTA10CA28 PO; +PRED10TA PO; +SULF800T23 PO
--- NOTE | 2016-07-08 15:41 | CODING QUERY MEDICAL NECESSITY ---
CQSUPPORTING DIAGNOSIS NEEDED A supporting diagnosis is required for the test/procedure performed on this patient in order for us to be reimbursed by the patient's insurance. Please provide a supporting diagnosis for the following test/procedure listed below next to the test name along with your signature. *If there is no additional diagnosis for this patient that would support the following test/procedure please document that below next to the test/procedure. Test(s)/Procedure(s) that require a supporting diagnosis: DOS 07/02/16 URINE CULTURE Provider Signature: Date: Thank you Lauren Dallas [employer] Once completed, please kindly fax back to [phone] For questions please call [phone]
== END | disposition home or self-care (01) ==
LOC: C.LABPVFM 15:29
PROVIDERS: ATTEND Nurse Practitioner
DX: Z87.440 Personal history of urinary (tract) infections (principal); N39.0 Urinary tract infection, site not specified

== ENCOUNTER 2016-07-06 20:05 | Inpatient (IN) | payer OTHER ==
[~2016-07-06] VITALS: Ht 154.9 cm; Wt 61.2 kg
--- NOTE | 2016-07-06 20:33 | EMERGENCY ROOM VISIT NOTE ---
History Report prepared by Roby: Marsha Fernandez Under the Supervision of: Dr. Iliana Garrido D.O. 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 The HPI is limited due to AMS. The patient's family states that the patient has dementia and has a urinary tract infection and has taken 5 days of Bactrim. They state that the patient has had worsening AMS and has recently forgot how to feed herself and unable to walk in the last three days. They state that the patient has also had a generalized body shaking throughout the last three days. They states that the patient's PCP said that the patient's symptoms could be caused by the UTI that the patient has but states that the medication should have been improving the patient's symptoms by now causing them to bring the patient in to be evaluated tonight. The patient denies any abdominal pain. 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 forgot how to feed self, and unable to walk. Review of Systems ROS limited by AMS. Past Medical & Surgical Medical Problems: (1) Altered mental state (2) Aortic stenosis (3) Blind (4) Dementia (5) Diastolic congestive heart failure (6) Hypothermia (7) Sepsis Family History Diabetes mellitus Heart disease Social History Smoking Status: Never Smoker Drug Use: none Marital Status: Housing Status: lives alone Occupation Status: retired Current/Historical Medications Scheduled Furosemide (Lasix), 20 MG PO BID Potassium Chloride (Micro-K Ext Rel), 10 MEQ PO BID Sulfa/Trimethoprim (Bactrim Ds 800MG/160MG), 1 TAB PO BID Allergies Coded Allergies: Penicillins (Verified Allergy, Unknown, 05/24/16) Physical Exam Vital Signs Date Time Temp Pulse Resp B/P Pulse Ox O2 Delivery O2 Flow Rate FiO2 07/06/16 22:34 54 07/06/16 22:31 55 20 120/63 92 Room Air 07/06/16 20:10 36.9 96 23 121/55 90 Room Air Physical Exam General: Pleasantly confused with obvious tremor. HEENT: Head - normocephalic and atraumatic Pupils are equal, round, and reactive to light. Extraocular eye muscles are intact, and sclera are anicteric. Nose - moist nasal mucosa without discharge. Mouth - moist buccal mucosa. Oropharynx is nonerythematous and there is no tonsillar exudate or edema noted. Neck: Supple; no JVD, nuchal rigidity, cervical lymphadenopathy. Heart: Regular rate and rhythm. There is a normal S1 and S2 with no murmurs, clicks, or gallops appreciated. Lungs: Clear to auscultation bilaterally with no wheezes, rales, or rhonchi. Abdomen: Soft, completely nontender, nondistended, with good bowel sounds. There are no palpable pulsatile masses or hepatosplenomegaly. There is no guarding, rigidity, or rebound noted. Extremities: No evidence of cyanosis, clubbing, or edema. There are easily palpable peripheral pulses. Skin: warm and dry with good turgor and no rashes. Neuro: Will occasionally follow commands and moves all 4 extremities. Medical Decision & Procedures ER Provider Diagnostic Interpretation: CT results as stated below per my review and radiologist interpretation: CT SCAN OF THE BRAIN WITHOUT IV CONTRAST CLINICAL HISTORY: Change in mental status. COMPARISON STUDY: CT of the brain dated 05/21/2016. TECHNIQUE: Unenhanced axial CT scan of the brain is performed from the vertex to the skull base. CT DOSE: 638.56 mGycm FINDINGS: Brain parenchyma: There are age-related involutional changes noting moderate fluid subcortical and periventricular microangiopathic change. There is no hemorrhage, mass effect, or evidence of acute territorial ischemia by CT criteria. A chronic lacunar infarct is noted in the right thalamus. Fletcher-white matter is preserved. No extra-axial fluid collection is seen. Ventricles, sulci, cisterns: Prominent secondary to involutional change. Intracranial vasculature: There is atherosclerotic calcification of the cavernous carotid and vertebral arteries. Calvarium: Unremarkable. Sinuses and mastoids: The visualized paranasal sinuses are clear. The mastoid air cells are well pneumatized. Orbits: The bony orbits are grossly intact. IMPRESSION: Senescent changes as above with no hemorrhage, mass effect, or evidence of acute territorial ischemia by CT criteria. Electronically signed by: Quinn Flynn M.D. 07/06/2016 9:16 PM Dictated Date/Time: 07/06/2016 9:13 PM Laboratory Results 07/06/16 20:44 Red Blood Count 5.06, Mean Corpuscular Volume 87.5, Mean Corpuscular Hemoglobin 27.7, Mean Corpuscular Hemoglobin Concent 31.6, Mean Platelet Volume 10.6, Neutrophils (%) (Auto) 85.8, Lymphocytes (%) (Auto) 5.9, Monocytes (%) (Auto) 7.2, Eosinophils (%) (Auto) 0.5, Basophils (%) (Auto) 0.1, Neutrophils # (Auto) 8.35, Lymphocytes # (Auto) 0.57, Monocytes # (Auto) 0.70, Eosinophils # (Auto) 0.05, Basophils # (Auto) 0.01 07/06/16 20:44 Test 07/06/16 20:44 White Blood Count 9.73 K/uL (4.8-10.8) Red Blood Count 5.06 M/uL (4.2-5.4) Hemoglobin 14.0 g/dL (12.0-16.0) Hematocrit 44.3 % (37-47) Mean Corpuscular Volume 87.5 fL (80-100) Mean Corpuscular Hemoglobin 27.7 pg (25-34) Mean Corpuscular Hemoglobin Concent 31.6 g/dl (32-36) Platelet Count 242 K/uL (130-400) Mean Platelet Volume 10.6 fL (7.4-10.4) Neutrophils (%) (Auto) 85.8 % Lymphocytes (%) (Auto) 5.9 % Monocytes (%) (Auto) 7.2 % Eosinophils (%) (Auto) 0.5 % Basophils (%) (Auto) 0.1 % Neutrophils # (Auto) 8.35 K/uL (1.4-6.5) Lymphocytes # (Auto) 0.57 K/uL (1.2-3.4) Monocytes # (Auto) 0.70 K/uL (0.11-0.59) Eosinophils # (Auto) 0.05 K/uL (0-0.5) Basophils # (Auto) 0.01 K/uL (0-0.2) RDW Standard Deviation 51.8 fL (36.4-46.3) RDW Coefficient of Variation 16.3 % (11.5-14.5) Immature Granulocyte % (Auto) 0.5 % Immature Granulocyte # (Auto) 0.05 K/uL (0.00-0.02) Urine Color YELLOW Urine Appearance CLEAR (CLEAR) Urine pH 7.0 (4.5-7.5) Urine Specific [place] 1.011 (1.000-1.030) Urine Protein NEG (NEG) Urine Glucose (UA) NEG (NEG) Urine Ketones TRACE (NEG) Urine Occult Blood NEG (NEG) Urine Nitrite NEG (NEG) Urine Bilirubin NEG (NEG) Urine Urobilinogen NEG (NEG) Urine Leukocyte Esterase NEG (NEG) Anion Gap 8.0 mmol/L (3-11) Est Creatinine Clear Calc Drug Dose 25.5 ml/min Estimated GFR () 39.1 Estimated GFR (Non- 33.7 BUN/Creatinine Ratio 8.5 (10-20) Calcium Level 8.3 mg/dl (8.5-10.1) Magnesium Level 2.9 mg/dl (1.8-2.4) Total Bilirubin 0.4 mg/dl (0.2-1) Aspartate Amino Transf (AST/SGOT) 23 U/L (15-37) Alanine Aminotransferase (ALT/SGPT) 22 U/L (12-78) Alkaline Phosphatase 78 U/L (45-117) Total Protein 7.3 gm/dl (6.4-8.2) Albumin 3.4 gm/dl (3.4-5.0) Globulin 3.9 gm/dl (2.5-4.0) Albumin/Globulin Ratio 0.9 (0.9-2) Thyroid Stimulating Hormone (TSH) 3.310 uIu/ml (0.300-4.500) Laboratory results per my review. Medications Administered Medications (Trade) Dose Ordered Sig/Macy Route Start Time Stop Time Status Last Admin Dose Admin Sodium Chloride (Nss 1000ml) 1,000 ml @ 250 mls/hr Q4H STAT IV 07/06/16 22:23 07/07/16 02:09 DC 07/06/16 22:23 250 MLS/HR Procedure Medications Administered: Sodium Chloride. ECG Indication: altered mental status Rate (beats per minute): 54 Rhythm: sinus bradycardia Findings: PAC, no acute ischemic change ED Course 2018: Past medical records reviewed. The patient was evaluated in room C4. A complete history and physical exam was performed. Laboratory studies were drawn as above. A CT scan of the brain was performed and was unremarkable. An EKG was obtained as described above. The patient is resting comfortably at this time. 2210: I reevaluated the patient and she was resting comfortably. I updated the patient and her family of her results and discussed admitted the patient for further evaluation. 221: I discussed the case with Dr. Lorene BRAND Hospitalist. He agreed to evaluated the patient for further management and care. 2223: Ordered Sodium Chloride 1,000 ml @ 250 mls/hr IV. Medical Decision The patient is a 85 year old female who presents to the ED with worsening AMS. Differential diagnosis includes UTI, intracranial bleeding, medication side effect, dehydration, hypoglycemia, and renal failure. Labs: creatinine 1.4 Glucose 136 Normal LFTs Urinalysis positive for trace ketones Stable H&H This is an 85-year-old female patient with a history of dementia who presents to the emergency department with a worsening altered mental status. The family explains that the patient is currently taking Bactrim for a urinary tract infection over the past 4-5 days. She has become increasingly weak. She is unable to ambulate on her own. She can no longer feed herself. This appears to be a rapid decline. We considered the possibility of medication side effects versus persistent urinary tract infection. The patient does have an elevation to her creatinine. I discussed the case with the [facility] hospitalist and they will evaluate for further management. Consults Time Called: 2209 Consulting Physician: Dr. Lorene BRAND Hospitalist Returned Call: [phone] I discussed the case with Dr. Lorene BRAND [facility]. He agreed to evaluated the patient for further management and care. Impression Primary Impression: Altered mental status Additional Impression: Renal insufficiency Scribe Attestation The scribe's documentation has been prepared under my direction and personally reviewed by me in its entirety. I confirm that the note above accurately reflects all work, treatment, procedures, and medical decision making performed by me. Departure Information Dispostion Being Evaluated By Hospitalist Referrals Alyx Mahmood C.R.N.P (PCP) Patient Instructions [facility] Problem Qualifiers
[2016-07-06 20:56] LABS: BASO % 0.1 %; BASO ABS # 0.01 K/uL (0-0.2); COMPLETE YES; EOS % 0.5 %; HEMATOCRIT 44.3 % (37-47); IG% 0.5 %; LYMPH % 5.9 %; LYMPH ABS # 0.57 K/uL (1.2-3.4); MEAN CELL VOLUME 87.5 fL (80-100); MEAN CORPUSCULAR HEMOGLOBIN 27.7 pg (25-34); MEAN CORPUSCULAR HGB CONC 31.6 g/dl (32-36); MEAN PLATELET VOLUME 10.6 fL (7.4-10.4); MONO % 7.2 %; NEUT % 85.8 %; PLATELET COUNT 242 K/uL (130-400); RED BLOOD COUNT 5.06 M/uL (4.2-5.4); WHITE BLOOD COUNT 9.73 K/uL (4.8-10.8)
[2016-07-06] MEDS ORDERED: SULF800T23 PO (21:00)
[2016-07-06 21:01] LABS: URINE APPEARANCE CLEAR (CLEAR); URINE BILIRUBIN NEG (NEG); URINE COLOR YELLOW; URINE NITRITE NEG (NEG); URINE SPECIFIC GRAVITY 1.011 (1.000-1.030); UROBILINOGEN NEG (NEG)
[2016-07-06 21:03] LABS: MANUAL MICROSCOPIC REQUIRED? NO; REVIEW REQ? NO
[2016-07-06 21:14] LABS: BUN/CREATININE RATIO 8.5 (10-20); CALCIUM 8.3 mg/dl (8.5-10.1); CREATININE 1.4 mg/dl (0.60-1.20); POTASSIUM 4.8 mmol/L (3.5-5.1)
[2016-07-06 21:17] LABS: ALB/GLOB RATIO 0.9 (0.9-2)
--- NOTE | 2016-07-06 21:18 | DIAGNOSTIC IMAGING REPORT ---
CT SCAN OF THE BRAIN WITHOUT IV CONTRAST CLINICAL HISTORY: Change in mental status. COMPARISON STUDY: CT of the brain dated 05/21/2016. TECHNIQUE: Unenhanced axial CT scan of the brain is performed from the vertex to the skull base. CT DOSE: 638.56 mGycm FINDINGS: Brain parenchyma: There are age-related involutional changes noting moderate fluid subcortical and periventricular microangiopathic change. There is no hemorrhage, mass effect, or evidence of acute territorial ischemia by CT criteria. A chronic lacunar infarct is noted in the right thalamus. Fletcher-white matter is preserved. No extra-axial fluid collection is seen. Ventricles, sulci, cisterns: Prominent secondary to involutional change. Intracranial vasculature: There is atherosclerotic calcification of the cavernous carotid and vertebral arteries. Calvarium: Unremarkable. Sinuses and mastoids: The visualized paranasal sinuses are clear. The mastoid air cells are well pneumatized. Orbits: The bony orbits are grossly intact. IMPRESSION: Senescent changes as above with no hemorrhage, mass effect, or evidence of acute territorial ischemia by CT criteria. Electronically signed by: Quinn Flynn M.D. 07/06/2016 9:16 PM Dictated Date/Time: 07/06/2016 9:13 PM
[2016-07-06] MEDS ORDERED: SODIUM CHLORIDE 0.9% 1000ML 1,000 ML IV STA (22:23)
[2016-07-07] MEDS ORDERED: ALUMINUM/MAGNESIUM/SIMETH (MAALOX MAX) 30 ML UDC PO PRN (00:15)
[2016-07-07] MEDS ORDERED: ONDANSETRON INJ 2 MG/ML 2 ML VIAL IV PRN (00:15)
[2016-07-07] MEDS ORDERED: ACETAMINOPHEN 325 MG TAB PO PRN (00:15)
[2016-07-07] MEDS ORDERED: MAGNESIUM HYDROXIDE SUSP 30 ML UDC PO PRN (00:15)
[2016-07-07] MEDS ORDERED: POLYETHYLENE (MIRALAX) 17 GM PACK PO PRN (00:15)
--- NOTE | 2016-07-07 00:17 | History and Physical ---
History & Physical Date & Time of Service: Jul 07, 2016 at 00:11 Chief Complaint: Bladder Infection Taking Bactrin Tari Gamez Primary Care Physician: Alyx Mahmood C.R.N.P History of Present Illness Source: family 85-year-old female with past medical history of aortic stenosis, blindness, dementia, CHF presented with complaints of worsening altered mental sensorium which started 3 days prior to arrival. Per patient's family she was recently treated for a UTI by her PCP with 5 days of Bactrim and today is day 4. Family also stated that they have noticed worsening confusion, shakiness, falls . The patient has dementia at baseline and did not indicate any pain. The family did not notice any weakness in extremities, facial drooping, coughing, fevers Past Medical/Surgical History Medical Problems: (1) Blind Status: Chronic (2) Dementia Status: Chronic (3) Diastolic congestive heart failure Status: Chronic Family History Diabetes mellitus Heart disease Social History Smoking Status: Never Smoker Drug Use: none Marital Status: Housing status: lives with family Occupational Status: retired Multi-Drug Resistant Organisms History of MDRO: No Allergies Coded Allergies: Penicillins (Verified Allergy, Unknown, 05/24/16) Home Medications Scheduled Furosemide (Lasix), 20 MG PO BID Potassium Chloride (Micro-K Ext Rel), 10 MEQ PO BID Sulfa/Trimethoprim (Bactrim Ds 800MG/160MG), 1 TAB PO BID Review of Systems Unable to obtain as patient has dementia at baseline. she responds to name and says"no " to pain Physical Exam Vital Signs Date Time Temp Pulse Resp B/P Pulse Ox O2 Delivery O2 Flow Rate FiO2 07/06/16 22:34 54 07/06/16 22:31 55 20 120/63 92 Room Air 07/06/16 20:10 36.9 96 23 121/55 90 Room Air General Appearance: WD/WN Head: normocephalic Eyes: + pertinent finding (right eyelid slightly dropped which is chronic) Neck: supple Respiratory/Chest: chest non-tender Cardiovascular: regular rate, rhythm, + bradycardia, + systolic murmur Abdomen/GI: normal bowel sounds, soft, + tenderness (questionable as she says "ouch" but per family she uses that phrase very often even when not in pain) Extremities/Musculoskelatal: no pedal edema, + pertinent finding (right foot healing wounds iwona on 4th digit.) Neurologic/Psych: + disoriented Skin: normal color Diagnostics Laboratory Results Results Past 24 Hours Test 07/06/16 20:44 07/07/16 00:09 Range/Units White Blood Count 9.73 4.8-10.8 K/uL Red Blood Count 5.06 4.2-5.4 M/uL Hemoglobin 14.0 12.0-16.0 g/dL Hematocrit 44.3 37-47 % Mean Corpuscular Volume 87.5 80-100 fL Mean Corpuscular Hemoglobin 27.7 25-34 pg Mean Corpuscular Hemoglobin Concent 31.6 32-36 g/dl Platelet Count 242 130-400 K/uL Mean Platelet Volume 10.6 7.4-10.4 fL Neutrophils (%) (Auto) 85.8 % Lymphocytes (%) (Auto) 5.9 % Monocytes (%) (Auto) 7.2 % Eosinophils (%) (Auto) 0.5 % Basophils (%) (Auto) 0.1 % Neutrophils # (Auto) 8.35 1.4-6.5 K/uL Lymphocytes # (Auto) 0.57 1.2-3.4 K/uL Monocytes # (Auto) 0.70 0.11-0.59 K/uL Eosinophils # (Auto) 0.05 0-0.5 K/uL Basophils # (Auto) 0.01 0-0.2 K/uL RDW Standard Deviation 51.8 36.4-46.3 fL RDW Coefficient of Variation 16.3 11.5-14.5 % Immature Granulocyte % (Auto) 0.5 % Immature Granulocyte # (Auto) 0.05 0.00-0.02 K/uL Urine Color YELLOW Urine Appearance CLEAR CLEAR Urine pH 7.0 4.5-7.5 Urine Specific [place] 1.011 1.000-1.030 Urine Protein NEG NEG Urine Glucose (UA) NEG NEG Urine Ketones TRACE NEG Urine Occult Blood NEG NEG Urine Nitrite NEG NEG Urine Bilirubin NEG NEG Urine Urobilinogen NEG NEG Urine Leukocyte Esterase NEG NEG Sodium Level 137 136-145 mmol/L Potassium Level 4.8 3.5-5.1 mmol/L Chloride Level 100 98-107 mmol/L Carbon Dioxide Level 29 21-32 mmol/L Anion Gap 8.0 3-11 mmol/L Blood Urea Nitrogen 12 7-18 mg/dl Creatinine 1.40 0.60-1.20 mg/dl Est Creatinine Clear Calc Drug Dose 25.5 ml/min Estimated GFR () 39.1 Estimated GFR (Non- 33.7 BUN/Creatinine Ratio 8.5 10-20 Random Glucose 136 70-99 mg/dl Calcium Level 8.3 8.5-10.1 mg/dl Total Bilirubin 0.4 0.2-1 mg/dl Aspartate Amino Transf (AST/SGOT) 23 15-37 U/L Alanine Aminotransferase (ALT/SGPT) 22 12-78 U/L Alkaline Phosphatase 78 45-117 U/L Total Protein 7.3 6.4-8.2 gm/dl Albumin 3.4 3.4-5.0 gm/dl Globulin 3.9 2.5-4.0 gm/dl Albumin/Globulin Ratio 0.9 0.9-2 Diagnostic Radiology CLINICAL HISTORY: Change in mental status. COMPARISON STUDY: CT of the brain dated 05/21/2016. TECHNIQUE: Unenhanced axial CT scan of the brain is performed from the vertex to the skull base. CT DOSE: 638.56 mGycm FINDINGS: Brain parenchyma: There are age-related involutional changes noting moderate fluid subcortical and periventricular microangiopathic change. There is no hemorrhage, mass effect, or evidence of acute territorial ischemia by CT criteria. A chronic lacunar infarct is noted in the right thalamus. Fletcher-white matter is preserved. No extra-axial fluid collection is seen. Ventricles, sulci, cisterns: Prominent secondary to involutional change. Intracranial vasculature: There is atherosclerotic calcification of the cavernous carotid and vertebral arteries. Calvarium: Unremarkable. Sinuses and mastoids: The visualized paranasal sinuses are clear. The mastoid air cells are well pneumatized. Orbits: The bony orbits are grossly intact. IMPRESSION: Senescent changes as above with no hemorrhage, mass effect, or evidence of acute territorial ischemia by CT criteria. Electronically signed by: Quinn Flynn M.D. 07/06/2016 9:16 PM Dictated Date/Time: 07/06/2016 9:13 PM Impression Assessment and Plan 85-year-old female with past medical history of aortic stenosis, blindness, dementia, CHF presented with complaints of worsening altered mental sensorium which started 3 days prior to arrival. She was admitted recently for cellulitis of right foot Altered mental status: - Head CT: senescent changes as above with no hemorrhage, mass effect, or evidence of acute territorial ischemia by CT criteria. - UA negative, was recently treated for UTI with Bactrim( had completed 3 days of 5) - Chest x-ray ordered - Electrolytes within normal limits - TSH ordered, TSH at last visit was elevated at 5.3 MARILU: Creatinine on admission 1.4 - Continue IV fluids - Monitor creatinine Aortic stenosis: Stable CHF: - Lasix 20 mg twice a day - KCl Dementia: Supportive care DVT prophylaxis: Heparin subcutaneous DO NOT RESUSCITATE Disposition: Admitted to [facility] Level of Care Med/Surg Resuscitation Status DO NOT RESUSCITATE VTE Prophylaxis VTE Risk Assessment Done? Y/N: Yes Risk Level: Moderate Resident Tracking Resident Involvement: Resident Care Provided Care Provided: Adult Hospital Medicine Assessment and Plan Attending Addendum: I have physically seen and examined this patient, have directed their medical care, have supervised the medical residents activities, and agree with the H&P as noted above, with the following changes: NONE
[2016-07-07 01:56] LABS: MAGNESIUM 2.9 mg/dl (1.8-2.4); THYROID STIMULATING HORMONE 3.31 uIu/ml (0.300-4.500)
[2016-07-07 02:34] VITALS: BP 129/67; PULSE 63; TEMP 36.7; O2SAT 95; Ht 154.9 cm; Wt 61.2 kg
[2016-07-07] MEDS: SODIUM CHLORIDE 0.9% 1000ML 1,000 ML IV SCH ×2 (06:00→17:56)
[2016-07-07] MEDS ORDERED: CETIRIZINE HCL 10 MG TAB PO STA (06:42)
[2016-07-07] MEDS ORDERED: METHYLPREDNISOLONE IV 60 MG in SYRINGE 0 ML IV STA ×2 (06:42→22:30)
[2016-07-07 07:16] LABS: PROTHROMBIN TIME (PATIENT) 11.2 SECONDS (9.0-12.0)
[2016-07-07 07:31] VITALS: BP 133/60; PULSE 63; TEMP 37.2; O2SAT 94
[2016-07-07] MEDS: FUROSEMIDE 20 MG TAB PO SCH ×2 (07:31→17:54)
[2016-07-07] MEDS: POTASSIUM CHLORIDE 10 MEQ TABCR PO SCH ×2 (07:31→21:19)
--- NOTE | 2016-07-07 07:35 | DIAGNOSTIC IMAGING REPORT ---
CHEST ONE VIEW PORTABLE HISTORY: altered sensorium COMPARISON: Chest 05/26/2016. FINDINGS: The heart remains mildly enlarged. The lungs are clear. No pleural effusions. No pneumothorax. Right shoulder prosthesis. IMPRESSION: No significant change compared to the prior study. No acute process. Electronically signed by: Romain Turner M.D. 07/07/2016 7:32 AM Dictated Date/Time: 07/07/2016 7:32 AM
[2016-07-07] MEDS: HEPARIN SOD 5000 UNIT/0.5 ML CARP SQ SCH ×2 (09:05→21:23)
[2016-07-07 15:29] VITALS: BP 128/62; PULSE 78; TEMP 36.4; O2SAT 92
[2016-07-07 16:00] VITALS: O2SAT 94
[2016-07-07] MEDS ORDERED: CETIRIZINE HCL 10 MG TAB PO PRN (22:30)
[2016-07-07 23:12] VITALS: BP 112/64; PULSE 69; TEMP 36.8; O2SAT 91
[2016-07-08 07:10] LABS: HEMATOCRIT 42.7 % (37-47); MEAN CELL VOLUME 88.6 fL (80-100); MEAN CORPUSCULAR HEMOGLOBIN 28.4 pg (25-34); MEAN CORPUSCULAR HGB CONC 32.1 g/dl (32-36); MEAN PLATELET VOLUME 10.8 fL (7.4-10.4); PLATELET COUNT 233 K/uL (130-400); RED BLOOD COUNT 4.82 M/uL (4.2-5.4); WHITE BLOOD COUNT 6.66 K/uL (4.8-10.8)
[2016-07-08] MEDS ORDERED: NURSING VERBAL MED ORDER STA (07:21)
[2016-07-08] MEDS: SODIUM CHLORIDE 0.9% 1000ML 1,000 ML IV SCH ×2 (07:43→20:54)
[2016-07-08] MEDS ORDERED: METHYLPREDNISOLONE 60 MG in SYRINGE 0 ML IV ONE (07:45)
[2016-07-08 07:54] LABS: BUN/CREATININE RATIO 17.5 (10-20); CALCIUM 7.7 mg/dl (8.5-10.1); CREATININE 0.84 mg/dl (0.60-1.20); POTASSIUM 4.5 mmol/L (3.5-5.1)
[2016-07-08 08:15] VITALS: BP 120/69; PULSE 54; TEMP 36.4; O2SAT 95
[2016-07-08] MEDS: FUROSEMIDE 20 MG TAB PO SCH ×2 (08:45→17:05)
[2016-07-08] MEDS: POTASSIUM CHLORIDE 10 MEQ TABCR PO SCH ×2 (08:46→20:54)
[2016-07-08] MEDS: HEPARIN SOD 5000 UNIT/0.5 ML CARP SQ SCH ×2 (08:50→20:58)
[2016-07-08] MEDS ORDERED: NURSING VERBAL MED ORDER ONE (09:15)
[2016-07-08] MEDS ORDERED: hydrOXYzine HCL 25 MG TAB PO ONE (09:45)
--- NOTE | 2016-07-08 10:04 | Clinical Documentation Query ---
GABBI Troncoso : CLINICAL DOCUMENTATION QUERIES QUERY 1 OF 3 Patient is an 85 year old female admitted for evaluation of an AMS and "shakiness" in the setting of recent UTI. CT scan of the head negative for acute process. UA negative. TSH within normal limits. AMS is a symptom,which lends readily to a diagnosis of encephalopathy. As alternative etiologies have been ruled out, consider the diagnostic statement as suggested below as this impacts measures of both severity of illness and predictors of mortality. Thank you. In your clinical opinion is this patient being managed for: (X ) (Possible/suspected/likely) Toxic encephalopathy due to Sulfamethoxazole/Trimethoprim and/or MARILU ( ) Other explanation of clinical findings (Please Explain) ( ) Unable to determine (Please Define) ( ) Need to Discuss ( ) Not Agree The medical record reflects the following clinical findings, treatment, and risk factors. Clinical Indicators: AMS in the setting of Bactrim therapy and MARILU Treatment: CT scan of the head, chemistries, cultures Risk Factors: Age, underlying dementia, recent/current infection, medications, MARILU QUERY 2 OF 3 H&P notes a history of CHF, not otherwise specified. Historical documentation includes a diagnosis of chronic diastolic CHF. Echocardiogram from 05/21/16 read to include hyperdynamic LV systolic function with noted LV diastolic dysfunction. As appropriate, please specify the acuity and type of CHF in your patient. Thank you. In your clinical opinion is this patient being managed for: ( X ) Chronic diastolic congestive heart failure ( ) Other explanation of clinical findings (Please Explain) ( ) Unable to determine (Please Define) ( ) Need to Discuss ( ) Not Agree The medical record reflects the following clinical findings, treatment, and risk factors. Clinical Indicators: As above Treatment: Lasix, chemistries, daily weights, I/O, saline lock Risk Factors: QUERY 3 OF 3 "RIght foot healing wounds,...," noted on H&P. Per wound center outpatient notes, these were pressure ulcers sustained after being on the ground s/p fall for an indeterminate amount of time. WOCN nurse consulted and noted eschar on the 4th and 5th toe of the right foot. Per wound classification, these were appropriately labeled as "unstageable". Alternatively, per the National Pressure Advisory Panel (NPUAP) revised definitions of pressure injuries and staging thereof, the presence of eschar alone mandates the underlying wound to be at least of stage 3 severity. See below for detailed staging reference. Thank you. In your clinical opinion is this patient being managed for: (X ) Pressure ulcer right fourth and fifth toes, at least stage 3 ( ) Other explanation of clinical findings (Please Explain) ( ) Unable to determine (Please Define) ( ) Need to Discuss ( ) Not Agree The medical record reflects the following clinical findings, treatment, and risk factors. Clinical Indicators: As above Treatment: WOCN consultation Risk Factors: Age, dementia, frequent falls/immobility NPUAP Pressure Injury Stages The National Pressure Ulcer Advisory Panel redefined the definition of a pressure injuries during the NPUAP 2016 Staging Consensus Conference that was held June 26-2015 in [place], [place]. The updated staging definitions were presented at a meeting of over 400 professionals. Using a consensus format, Dr. Maximiliano Fletcher from the [place] [employer] adeptly guided the Staging Task Force and meeting participants to consensus on the updated definitions through an interactive discussion and voting process. During the meeting, the participants also validated the new terminology using photographs. The updated staging system includes the following definitions: Pressure Injury: A pressure injury is localized damage to the skin and underlying soft tissue usually over a bony prominence or related to a medical or other device. The injury can present as intact skin or an open ulcer and may be painful. The injury occurs as a result of intense and/or prolonged pressure or pressure in combination with shear. The tolerance of soft tissue for pressure and shear may also be affected by microclimate, nutrition, perfusion, co-morbidities and condition of the soft tissue. Stage 1 Pressure Injury: Non-blanchable erythema of intact skin Intact skin with a localized area of non-blanchable erythema, which may appear differently in darkly pigmented skin. Presence of blanchable erythema or changes in sensation, temperature, or firmness may precede visual changes. Color changes do not include purple or maroon discoloration; these may indicate deep tissue pressure injury. Stage 2 Pressure Injury: Partial-thickness skin loss with exposed dermis Partial-thickness loss of skin with exposed dermis. The wound bed is viable, pink or red, moist, and may also present as an intact or ruptured serum-filled blister. Adipose (fat) is not visible and deeper tissues are not visible. Granulation tissue, slough and eschar are not present. These injuries commonly result from adverse microclimate and shear in the skin over the pelvis and shear in the heel. This stage should not be used to describe moisture associated skin damage (MASD) including incontinence associated dermatitis (IAD), intertriginous dermatitis (ITD), medical adhesive related skin injury (MARSI), or traumatic wounds (skin tears, carias, abrasions). Stage 3 Pressure Injury: Full-thickness skin loss Full-thickness loss of skin, in which adipose (fat) is visible in the ulcer and granulation tissue and epibole (rolled wound edges) are often present. Slough and/or eschar may be visible. The depth of tissue damage varies by anatomical location; areas of significant adiposity can develop deep wounds. Undermining and tunneling may occur. Fascia, muscle, tendon, ligament, cartilage and/or bone are not exposed. If slough or eschar obscures the extent of tissue loss this is an Unstageable Pressure Injury. Stage 4 Pressure Injury: Full-thickness skin and tissue loss Full-thickness skin and tissue loss with exposed or directly palpable fascia, muscle, tendon, ligament, cartilage or bone in the ulcer. Slough and/or eschar may be visible. Epibole (rolled edges), undermining and/or tunneling often occur. Depth varies by anatomical location. If slough or eschar obscures the extent of tissue loss this is an Unstageable Pressure Injury. Unstageable Pressure Injury: Obscured full-thickness skin and tissue loss Full-thickness skin and tissue loss in which the extent of tissue damage within the ulcer cannot be confirmed because it is obscured by slough or eschar. If slough or eschar is removed, a Stage 3 or Stage 4 pressure injury will be revealed. Stable eschar (i.e. dry, adherent, intact without erythema or fluctuance) on the heel or ischemic limb should not be softened or removed. Deep Tissue Pressure Injury: Persistent non-blanchable deep red, maroon or purple discoloration Intact or non-intact skin with localized area of persistent non-blanchable deep red, maroon, purple discoloration or epidermal separation revealing a dark wound bed or blood filled blister. Pain and temperature change often precede skin color changes. Discoloration may appear differently in darkly pigmented skin. This injury results from intense and/or prolonged pressure and shear forces at the bone-muscle interface. The wound may evolve rapidly to reveal the actual extent of tissue injury, or may resolve without tissue loss. If necrotic tissue, subcutaneous tissue, granulation tissue, fascia, muscle or other underlying structures are visible, this indicates a full thickness pressure injury (Unstageable Please clarify and document your clinical opinion in the progress notes and discharge summary. Terms such as "probable", "suspected", "likely", "questionable", "possible", or "still to be ruled out" are acceptable. Please clarify and document your clinical opinion in the progress notes and discharge summary. Terms such as "probable", "suspected", "likely", "questionable", "possible", or "still to be ruled out" are acceptable. IF IN AGREEMENT, YOU MUST DOCUMENT ABOVE DIAGNOSTIC STATEMENT IN DAILY PROGRESS NOTES AND DISCHARGE SUMMARY. This document is not part of the patient's record. Thank You, Daniel Tinoco, IVETTE [phone]
[2016-07-08] MEDS: CIPROFLOXACIN / D5W 400 MG in PREMIXED IN D5W 200 ML IV SCH ×2 (10:18→20:51)
--- NOTE | 2016-07-08 12:59 | Progress Note ---
Subjective Date of Service: Jul 08, 2016. Subjective Pt evaluation today including: conversation w/ patient, conversation w/ family , physical exam, chart review, lab review, review of studies, review of inpatient medication list Pt has flat afffect Alert and oriented x 1 No distress noted No acute events overnight Problem List Medical Problems: (1) Acute exacerbation of CHF (congestive heart failure) Status: Acute (2) Altered mental status Status: Acute (3) Altered mental status Status: Acute (4) Cellulitis of right leg Status: Acute (5) Elevated troponin Status: Acute (6) Elevated troponin I level Status: Acute (7) Hypothermia Status: Acute (8) Hypothyroid Status: Acute (9) Leukocytosis Status: Acute (10) Renal insufficiency Status: Acute Review of Systems Constitutional: No chills, No fever Respiratory: No cough, No shortness of breath, No sputum, No wheezing Cardiac: No chest pain, No orthopnea Abdomen: No constipation, No diarrhea, No nausea, No pain, No vomiting Musculoskeletal: No joint pain, No muscle pain Female : No dysuria, No urinary frequency Neurologic: No memory loss, No paralysis Psychiatric: No anhedonism, No depression symptoms Skin: + rash, No itch Objective Vital Signs Date Time Temp Pulse Resp B/P Pulse Ox O2 Delivery O2 Flow Rate FiO2 07/08/16 08:15 36.4 54 18 120/69 95 Room Air 07/08/16 08:00 Room Air 07/08/16 00:00 Room Air 07/07/16 23:12 36.8 69 20 112/64 91 Room Air 07/07/16 16:00 94 Room Air 07/07/16 15:29 36.4 78 18 128/62 92 Room Air Physical Exam General Appearance: WD/WN, no apparent distress Neck: supple, no adenopathy Respiratory/Chest: lungs clear, normal breath sounds Cardiovascular: no edema, no gallop Abdomen: non tender, soft Neurologic/Psychiatric: alert, normal mood/affect, + disoriented Skin: normal color, + rash (red plaques noted on bilateral lower ext, trunk and several lesions on bilateral upper ext as well) Laboratory Results Last 24 Hours Test 07/08/16 06:23 White Blood Count 6.66 K/uL Red Blood Count 4.82 M/uL Hemoglobin 13.7 g/dL Hematocrit 42.7 % Mean Corpuscular Volume 88.6 fL Mean Corpuscular Hemoglobin 28.4 pg Mean Corpuscular Hemoglobin Concent 32.1 g/dl RDW Standard Deviation 53.7 fL RDW Coefficient of Variation 16.4 % Platelet Count 233 K/uL Mean Platelet Volume 10.8 fL Sodium Level 142 mmol/L Potassium Level 4.5 mmol/L Chloride Level 108 mmol/L Carbon Dioxide Level 26 mmol/L Anion Gap 8.0 mmol/L Blood Urea Nitrogen 15 mg/dl Creatinine 0.84 mg/dl Est Creatinine Clear Calc Drug Dose 39.6 ml/min Estimated GFR () 72.4 Estimated GFR (Non- 62.5 BUN/Creatinine Ratio 17.5 Random Glucose 133 mg/dl Calcium Level 7.7 mg/dl Chemistry Specimen Hemolysis Assessment and Plan 85-year-old female with past medical history of aortic stenosis, blindness, dementia, CHF presented with complaints of worsening altered mental sensorium which started 3 days prior to arrival. She was admitted recently for cellulitis of right foot Metabolic encephalopathy - Head CT: senescent changes as above with no hemorrhage, mass effect, or evidence of acute territorial ischemia by CT criteria. - TSH ordered, TSH at last visit was elevated at 5.3, B12, ammonia WNL - UA negative, was recently treated for UTI with Bactrim( had completed 3 days of 5) however rash developed and this drub dced. Given solumedrol and vistaril for rashand switched to antibiotic to cipro, mentation improved, spoke with son who states pt close to baseline - PT/OT consulted MARILU: - Creatinine on admission 1.4, resolved with IV fluids Aortic stenosis: - Stable, ECHO last month Chronic diastolic CHF: - Lasix 20 mg twice a day, EKG on admission sinus curtis with PACs - Echo last month * Probable moderate to severe aortic stenosis, EF >70% * Mild tricuspid regurgitation. * Normal estimated right heart pressures. Dementia: - Supportive care DVT prophylaxis: Heparin SQ DO NOT RESUSCITATE
[2016-07-08 13:55] VITALS: BP 125/53; PULSE 49; O2SAT 93
[2016-07-08 15:31] VITALS: BP 143/85; PULSE 59; TEMP 36.4; O2SAT 93
[2016-07-08] MEDS: METHYLPREDNISOLONE IV 60 MG in SYRINGE 0 ML IV SCH (18:16)
[2016-07-08 22:59] VITALS: BP 113/49; PULSE 52; TEMP 36.4; O2SAT 95
[2016-07-09] MEDS: METHYLPREDNISOLONE IV 60 MG in SYRINGE 0 ML IV SCH ×3 (02:20→17:20)
--- NOTE | 2016-07-09 07:51 | Clinical Documentation Query ---
CLINICAL DOCUMENTATION QUERY "RIght foot healing wounds,...," noted on H&P. Per wound center outpatient notes, these were pressure ulcers sustained after being on the ground s/p fall for an indeterminate amount of time. WOCN nurse consulted and noted eschar on the 4th and 5th toe of the right foot. Per wound classification, these were appropriately labeled as "unstageable". Alternatively, per the National Pressure Advisory Panel (NPUAP) revised definitions of pressure injuries and staging thereof, the presence of eschar alone mandates the underlying wound to be at least of stage 3 severity. See below for detailed staging reference. Thank you. In your clinical opinion is this patient being managed for: ( ) Pressure ulcer right fourth and fifth toes, at least stage 3 ( ) Other explanation of clinical findings (Please Explain) ( ) Unable to determine (Please Define) ( ) Need to Discuss ( ) Not Agree The medical record reflects the following clinical findings, treatment, and risk factors. Clinical Indicators: As above Treatment: WOCN consultation Risk Factors: Age, dementia, frequent falls/immobility NPUAP Pressure Injury Stages The National Pressure Ulcer Advisory Panel redefined the definition of a pressure injuries during the NPUAP 2016 Staging Consensus Conference that was held June 26-2015 in [place], [place]. The updated staging definitions were presented at a meeting of over 400 professionals. Using a consensus format, Dr. Maximiliano Fletcher from the [employer] adeptly guided the Staging Task Force and meeting participants to consensus on the updated definitions through an interactive discussion and voting process. During the meeting, the participants also validated the new terminology using photographs. The updated staging system includes the following definitions: Pressure Injury: A pressure injury is localized damage to the skin and underlying soft tissue usually over a bony prominence or related to a medical or other device. The injury can present as intact skin or an open ulcer and may be painful. The injury occurs as a result of intense and/or prolonged pressure or pressure in combination with shear. The tolerance of soft tissue for pressure and shear may also be affected by microclimate, nutrition, perfusion, co-morbidities and condition of the soft tissue. Stage 1 Pressure Injury: Non-blanchable erythema of intact skin Intact skin with a localized area of non-blanchable erythema, which may appear differently in darkly pigmented skin. Presence of blanchable erythema or changes in sensation, temperature, or firmness may precede visual changes. Color changes do not include purple or maroon discoloration; these may indicate deep tissue pressure injury. Stage 2 Pressure Injury: Partial-thickness skin loss with exposed dermis Partial-thickness loss of skin with exposed dermis. The wound bed is viable, pink or red, moist, and may also present as an intact or ruptured serum-filled blister. Adipose (fat) is not visible and deeper tissues are not visible. Granulation tissue, slough and eschar are not present. These injuries commonly result from adverse microclimate and shear in the skin over the pelvis and shear in the heel. This stage should not be used to describe moisture associated skin damage (MASD) including incontinence associated dermatitis (IAD), intertriginous dermatitis (ITD), medical adhesive related skin injury (MARSI), or traumatic wounds (skin tears, carias, abrasions). Stage 3 Pressure Injury: Full-thickness skin loss Full-thickness loss of skin, in which adipose (fat) is visible in the ulcer and granulation tissue and epibole (rolled wound edges) are often present. Slough and/or eschar may be visible. The depth of tissue damage varies by anatomical location; areas of significant adiposity can develop deep wounds. Undermining and tunneling may occur. Fascia, muscle, tendon, ligament, cartilage and/or bone are not exposed. If slough or eschar obscures the extent of tissue loss this is an Unstageable Pressure Injury. Stage 4 Pressure Injury: Full-thickness skin and tissue loss Full-thickness skin and tissue loss with exposed or directly palpable fascia, muscle, tendon, ligament, cartilage or bone in the ulcer. Slough and/or eschar may be visible. Epibole (rolled edges), undermining and/or tunneling often occur. Depth varies by anatomical location. If slough or eschar obscures the extent of tissue loss this is an Unstageable Pressure Injury. Unstageable Pressure Injury: Obscured full-thickness skin and tissue loss Full-thickness skin and tissue loss in which the extent of tissue damage within the ulcer cannot be confirmed because it is obscured by slough or eschar. If slough or eschar is removed, a Stage 3 or Stage 4 pressure injury will be revealed. Stable eschar (i.e. dry, adherent, intact without erythema or fluctuance) on the heel or ischemic limb should not be softened or removed. Deep Tissue Pressure Injury: Persistent non-blanchable deep red, maroon or purple discoloration Intact or non-intact skin with localized area of persistent non-blanchable deep red, maroon, purple discoloration or epidermal separation revealing a dark wound bed or blood filled blister. Pain and temperature change often precede skin color changes. Discoloration may appear differently in darkly pigmented skin. This injury results from intense and/or prolonged pressure and shear forces at the bone-muscle interface. The wound may evolve rapidly to reveal the actual extent of tissue injury, or may resolve without tissue loss. If necrotic tissue, subcutaneous tissue, granulation tissue, fascia, muscle or other underlying structures are visible, this indicates a full thickness pressure injury (Unstageable Please clarify and document your clinical opinion in the progress notes and discharge summary. Terms such as "probable", "suspected", "likely", "questionable", "possible", or "still to be ruled out" are acceptable. IF IN AGREEMENT, YOU MUST DOCUMENT ABOVE DIAGNOSTIC STATEMENT IN DAILY PROGRESS NOTES AND DISCHARGE SUMMARY. This document is not part of the patient's record. Thank You, Daniel Tinoco, RN [phone]
[2016-07-09 08:16] VITALS: BP 137/65; PULSE 51; TEMP 36.9; O2SAT 91
[2016-07-09] MEDS: CIPROFLOXACIN / D5W 400 MG in PREMIXED IN D5W 200 ML IV SCH (08:40)
[2016-07-09] MEDS: POTASSIUM CHLORIDE 10 MEQ TABCR PO SCH ×2 (08:40→20:54)
[2016-07-09] MEDS: FUROSEMIDE 20 MG TAB PO SCH ×2 (08:41→17:20)
[2016-07-09] MEDS: HEPARIN SOD 5000 UNIT/0.5 ML CARP SQ SCH ×2 (08:42→21:00)
[2016-07-09] MEDS: SODIUM CHLORIDE 0.9% 1000ML 1,000 ML IV SCH (11:03)
--- NOTE | 2016-07-09 11:07 | Progress Note ---
Progress Note Date of Service Jul 09, 2016. Progress Note ID Consult Dictated # [id number] A/P: 1. Rash - likely related to bactrim, now stopped -No evidence for infection, will stop cipro -Treat rash symptomatically, on steroids, no additional abx -Avoid sulfa use in the future -thank you
--- NOTE | 2016-07-09 11:29 | INFECT. DISEASE CONSULTATION ---
DATE OF CONSULTATION: 07/09/2016 DATE OF CONSULTATION: 07/09/2016. REQUESTING PHYSICIAN: Dr. Paulson. HISTORY OF PRESENT ILLNESS: This is an 85-year-old female who was admitted for altered mental status which began 3 days prior to admission. She was recently treated as an outpatient with a 5-day course of Bactrim. The day of admission was day 4 of 5. She reportedly had worsening confusion per the H\T\P. On my examination today, the patient states she does not have any pain. She denies any fevers or chills. She denies any nausea, vomiting, diarrhea or abdominal pain. She has no urinary symptoms on examination today. She has been afebrile since admission. She was placed on ciprofloxacin and is also on IV steroids. Her white blood cell count was initially 9.7 and this has improved to 6.6. PAST MEDICAL HISTORY: Significant for legal blindness, dementia and heart failure. PAST SURGICAL HISTORY: Unremarkable. FAMILY HISTORY: Noncontributory. SOCIAL HISTORY: Negative for tobacco use, alcohol use or drug use. ALLERGIES: SHE IS ALLERGIC TO PENICILLIN. CURRENT MEDICATIONS: Include Vistaril, Solu-Medrol, Zyrtec, Cipro, Lasix, potassium, subQ heparin, Tylenol, Maalox, milk of magnesia, MiraLax and Zofran. PHYSICAL EXAMINATION: VITAL SIGNS: She is afebrile, pulse is 51, respiratory rate is 16, blood pressure is 137/65, oxygen saturation is 91-95% on room air. GENERAL: She is awake and alert. She answers questions appropriately. HEAD, EYES, EARS, NOSE, AND THROAT: Mucous membranes are moist. HEART: Regular. LUNGS: Clear bilaterally. ABDOMEN: Soft, nontender, nondistended. There is no edema bilaterally. SKIN: Has a diffuse maculopapular rash. There are no raised lesions. There is no bleeding, no warmth or tenderness associated with this. The patient denies any itching. LABORATORY STUDIES: CBC on the reveals a white blood cell count of 6.6, hemoglobin 13.7, platelets are 233. Chemistry panel reveals a sodium of 142, potassium 4.5, chloride 108, bicarbonate 26, BUN 15, creatinine 0.8, glucose is 133. There are no labs from this morning. A urinalysis was unremarkable. Leukocyte esterase was negative. Blood was negative. There is no microanalysis done. Blood cultures were ordered yesterday and are pending. Head CT had no acute changes. A chest x-ray in the ER was negative. ASSESSMENT AND PLAN: Rash likely secondary to drug eruption with Bactrim. It appears that this started prior to her started on Cipro; however, I do not see any evidence of recurrent UTI or any other infectious etiology and her antibiotics will be discontinued. She certainly can be treated symptomatically for the rash. I would avoid sulfa use in the future. Thank you for this consultation.
[2016-07-09 15:00] VITALS: BP 122/78; PULSE 56; TEMP 36.8; O2SAT 96
[2016-07-09 16:00] VITALS: O2SAT 96
[2016-07-09] MEDS ORDERED: FUROSEMIDE 40 MG/4 ML VIAL IV STA (19:42)
--- NOTE | 2016-07-09 19:57 | DIAGNOSTIC IMAGING REPORT ---
CHEST ONE VIEW PORTABLE CLINICAL HISTORY: hypoxia dyspnea COMPARISON STUDY: 07/07/2016 FINDINGS: The bones soft tissues and hemidiaphragms are normal. The cardiomediastinal silhouette is normal. The lungs are clear. The pulmonary vasculature is normal. IMPRESSION: Negative chest. Electronically signed by: Dilshad Rockwell M.D. 07/09/2016 7:55 PM Dictated Date/Time: 07/09/2016 7:55 PM
[2016-07-09] MEDS ORDERED: FUROSEMIDE INJ 40 MG in SYRINGE 0 ML IV ONE (20:00)
[2016-07-09] MEDS: LEVALBUTEROL 1.25MG/0.5ML NEB INH SCH (21:00)
[2016-07-09] MEDS: IPRATROPIUM BROMIDE NEB SOLN 0.02% 2.5 ML VIAL INH SCH (21:00)
[2016-07-09] MEDS ORDERED: LEVALBUTEROL/IPRATROPIUM NEB INH SCH (21:00)
[2016-07-09 23:04] VITALS: BP 158/85; PULSE 66; TEMP 37.2; O2SAT 91
[2016-07-10] MEDS: SODIUM CHLORIDE 0.9% 1000ML 1,000 ML IV SCH (00:30)
--- NOTE | 2016-07-10 00:50 | Hospitalist Progress Note ---
Hospitalist Progress Note Date of Service Jul 10, 2016. Subjective Pt evaluation today including: conversation w/ patient patient with no complaints Objective Vital Signs Date Time Temp Pulse Resp B/P Pulse Ox O2 Delivery O2 Flow Rate FiO2 07/09/16 23:04 37.2 66 18 158/85 91 Nasal Cannula 2.0 07/09/16 16:00 96 Room Air 07/09/16 15:00 36.8 56 16 122/78 96 Room Air 07/09/16 08:30 Room Air 07/09/16 08:16 36.9 51 16 137/65 91 Room Air Physical Exam Eyes: normal inspection Neck: trachea midline Respiratory/Chest: chest non-tender, lungs clear Laboratory Results Last Resulted CBC 07/08/16 06:23 Last Resulted BMP 07/08/16 06:23 Assessment and Plan (1) Altered mental state Assessment & Plan: patient is back to her baseline will discharge on 07/10. No sign of acute infection presently (2) Blind (3) Dementia (4) Hypothermia (5) Diastolic congestive heart failure
[2016-07-10] MEDS: METHYLPREDNISOLONE IV 30 MG in SYRINGE 0 ML IV SCH ×2 (02:06→07:59)
[2016-07-10] MEDS: LEVALBUTEROL 1.25MG/0.5ML NEB INH SCH ×3 (02:08→14:10)
[2016-07-10] MEDS: IPRATROPIUM BROMIDE NEB SOLN 0.02% 2.5 ML VIAL INH SCH ×3 (02:08→14:10)
[2016-07-10 02:09] VITALS: PULSE 76; O2SAT 94
[2016-07-10 07:14] VITALS: PULSE 56; O2SAT 94
[2016-07-10 07:33] LABS: HEMATOCRIT 38.3 % (37-47); MEAN CELL VOLUME 87.4 fL (80-100); MEAN CORPUSCULAR HEMOGLOBIN 28.1 pg (25-34); MEAN CORPUSCULAR HGB CONC 32.1 g/dl (32-36); MEAN PLATELET VOLUME 10.8 fL (7.4-10.4); PLATELET COUNT 286 K/uL (130-400); RED BLOOD COUNT 4.38 M/uL (4.2-5.4)
[2016-07-10 07:46] VITALS: BP 118/56; PULSE 62; TEMP 36.7; O2SAT 95
[2016-07-10] MEDS: FUROSEMIDE 20 MG TAB PO SCH (07:59)
[2016-07-10] MEDS: POTASSIUM CHLORIDE 10 MEQ TABCR PO SCH (08:00)
[2016-07-10] MEDS: HEPARIN SOD 5000 UNIT/0.5 ML CARP SQ SCH (08:01)
[2016-07-10 08:52] VITALS: O2SAT 94
[2016-07-10] MEDS ORDERED: PRED10TA PO (13:09)
--- NOTE | 2016-07-10 13:11 | Discharge Instructions ---
Discharge Instructions Date of Service Jul 10, 2016. Admission Reason for Admission: Altered Mental Status Discharge Discharge Diagnosis / Problem: UTI Discharge Goals Goal(s): Improve function Activity Recommendations Activity Limitations: resume your previous activity . Instructions / Follow-Up Instructions / Follow-Up Primary care physician in 1 week Current Hospital Diet Patient's current hospital diet: AHA Diet (Heart Healthy) Discharge Diet Recommended Diet: AHA Diet (Heart Healthy) Pending Studies Studies pending at discharge: no Medical Emergencies . Who to Call and When: Medical Emergencies: If at any time you feel your situation is an emergency, please call 911 immediately. . Non-Emergent Contact Non-Emergency issues call your: Primary Care Provider . Past History Medical & Surgical History: (1) Altered mental status (2) Dementia (3) Hypothermia (4) Blind . "Provider Documentation" section prepared by Daniel Pitts. . VTE Core Measure Inpt VTE Proph given/why not?: Unfractionated heparin SQ
[2016-07-10 13:22] VITALS: BP 118/56; PULSE 62; TEMP 36.7; O2SAT 94
[2016-07-10 14:10] VITALS: PULSE 60; O2SAT 93
--- NOTE | 2016-07-12 07:41 | Palliative Care Progress Note ---
Palliative Care Progress Note Date of Service Jul 12, 2016. Subjective Patient discharged before palliative care consult completed.
--- NOTE | 2016-07-13 19:10 | DISCHARGE SUMMARY ---
Please see dictated H and P for full details of presentation. The patient is an 85-year-old, history of aortic stenosis, blindness, dementia, congestive heart failure, who presented with complaints of worsening mental status for 3 days prior to admission. She was being treated for a urinary tract infection with Bactrim, she was on day 4 or 5. Family also noted she had worsening confusion, shakiness, falls. The patient has dementia at baseline and did not indicate any pain. The patient came in and received hydration. CT of the brain showed senescent changes, no hemorrhage, mass effect or evidence of acute tentorial ischemia by CT criteria. She was discovered to have acute kidney injury, was treated with IV hydration. Code status was do not resuscitate. She has a history of congestive heart failure, Lasix twice a day with potassium was given. Infectious disease consultation was obtained by Dr. Maliha Pham. At that time, the patient had a rash, most likely secondary to Bactrim. She did not see any evidence of urinary tract infection or any other infectious etiology, and so her antibiotics were discontinued. She also was recommended avoiding sulfa in the future. The patient had no further complications and was deemed stable for discharge on 07/10/2016. Time spent in reviewing the chart, discussion with the patient on the date of discharge 31 minutes. SULFA SHOULD BE ADDED AN ALLERGY. SLICKD
[2016-09-24] MEDS ORDERED: FURO-85 PO (08:46)
[2016-09-24] MEDS ORDERED: POTA10CA28 PO (08:46)
== END 2016-07-10 15:45 | disposition home or self-care (01) | DRG 682 ==
LOC: ENRESERVTM → ENRESERVDT → C.EDB 20:06 → C.MS2W 07-07 00:05
PROVIDERS: ADMIT Family Medicine; ATTEND Hospitalist
DX: N17.9 Acute kidney failure, unspecified (principal); G93.41 Metabolic encephalopathy; N39.0 Urinary tract infection, site not specified; I50.32 Chronic diastolic (congestive) heart failure; I35.0 Nonrheumatic aortic (valve) stenosis; F03.90 Unspecified dementia, unspecified severity, without behavioral disturbance, psychotic disturbance, mood disturbance, and anxiety; H54.8 Legal blindness, as defined in USA; R21 Rash and other nonspecific skin eruption; T37.0X5A Adverse effect of sulfonamides, initial encounter; R68.0 Hypothermia, not associated with low environmental temperature; Z66 Do not resuscitate; Z79.899 Other long term (current) drug therapy

== ENCOUNTER → 2016-08-28 | Outpatient (CLI) | payer OTHER ==
[~2016-08-28] MED LIST changes: -PRED10TA PO; -SULF800T23 PO
[2016-08-28 13:50] LABS: BLOOD UREA NITROGEN 17 mg/dl (7-18); CARBON DIOXIDE 30 mmol/L (21-32); CHLORIDE 103 mmol/L (98-107); CREATININE 0.85 mg/dl (0.60-1.20); GLUCOSE 90 mg/dl (70-99); POTASSIUM 4.1 mmol/L (3.5-5.1); SODIUM 141 mmol/L (136-145)
== END | disposition home or self-care (01) ==
LOC: C.LABPVFM 17:55
PROVIDERS: ATTEND Family Medicine
DX: L50.9 Urticaria, unspecified (principal)

== ENCOUNTER → 2016-09-23 | Outpatient (CLI) | payer OTHER | END | disposition home or self-care (01) | LOC: C.LABPVFM 13:35 | PROVIDERS: ATTEND Nurse Practitioner | DX: N39.0 Urinary tract infection, site not specified (principal); R41.0 Disorientation, unspecified ==

== ENCOUNTER 2016-09-24 16:37 | Emergency (ER) | payer OTHER ==
[~2016-09-24] VITALS: Ht 152.4 cm; Wt 69.4 kg
[~2016-09-24 16:37] MED LIST changes: -BCTCR/30 TOP; -CEPH500C PO; -CIPR1TAB10 PO
[2016-09-24] MEDS ORDERED: SODIUM CHLORIDE 0.9% 500ML 500 ML IV STA (17:31)
[2016-09-24] MEDS ORDERED: BCTCR/30 TOP (17:49)
[2016-09-24] MEDS ORDERED: CIPR1TAB10 PO (17:49)
[2016-09-24 18:08] LABS: BASO % 0.3 %; BASO ABS # 0.02 K/uL (0-0.2); COMPLETE YES; EOS % 3.2 %; HEMATOCRIT 45.7 % (37-47); IG% 0.3 %; LYMPH % 21.3 %; LYMPH ABS # 1.28 K/uL (1.2-3.4); MEAN CORPUSCULAR HEMOGLOBIN 28.2 pg (25-34); MEAN CORPUSCULAR HGB CONC 32.4 g/dl (32-36); MEAN PLATELET VOLUME 10.6 fL (7.4-10.4); NEUT % 62.9 %; PLATELET COUNT 268 K/uL (130-400); RED BLOOD COUNT 5.25 M/uL (4.2-5.4); WHITE BLOOD COUNT 6.01 K/uL (4.8-10.8)
[2016-09-24 18:14] VITALS: TEMP 36.7; O2SAT 96
--- NOTE | 2016-09-24 18:20 | DIAGNOSTIC IMAGING REPORT ---
CHEST ONE VIEW PORTABLE CLINICAL HISTORY: Acute change in mental status COMPARISON STUDY: 07/09/2016 FINDINGS: The cardiac and mediastinal contours remain stable. There is elevation the right hemidiaphragm. There is no failure. There is no focal pulmonary consolidation. There is a right shoulder arthroplasty.[ IMPRESSION: Elevation right hemidiaphragm. No evidence of failure. No evidence of focal pulmonary consolidation Electronically signed by: Gonzalez Bates M.D. 09/24/2016 6:19 PM Dictated Date/Time: 09/24/2016 6:19 PM
[2016-09-24 18:26] LABS: ALT/SGPT 15 U/L (12-78); BLOOD UREA NITROGEN 12 mg/dl (7-18); BUN/CREATININE RATIO 10.3 (10-20); CALCIUM 8.9 mg/dl (8.5-10.1); CARBON DIOXIDE 29 mmol/L (21-32); CHLORIDE 107 mmol/L (98-107); GLUCOSE 117 mg/dl (70-99); POTASSIUM 3.9 mmol/L (3.5-5.1); SODIUM 143 mmol/L (136-145)
[2016-09-24 18:37] LABS: ALKALINE PHOSPHATASE 85 U/L (45-117); AST/SGOT 16 U/L (15-37); CKMB/CK RATIO 2.3 (0-3.0)
[2016-09-24 18:56] LABS: URINE APPEARANCE CLEAR (CLEAR); URINE BILIRUBIN NEG (NEG); URINE COLOR YELLOW; URINE EPITHELIAL CELL AUTO 20-30 /lpf (0-5); URINE NITRITE POS (NEG); URINE SPECIFIC GRAVITY 1.016 (1.000-1.030); UROBILINOGEN NEG (NEG); ZZURINE CULT IF INDIC CATH YES
--- NOTE | 2016-09-24 18:56 | DIAGNOSTIC IMAGING REPORT ---
CT HEAD WITHOUT CONTRAST (CT) CLINICAL HISTORY: Acute change in mental status COMPARISON STUDY: 07/06/2016 TECHNIQUE: Axial CT of the brain is performed from the vertex to the skull base. IV contrast was not administered for this examination. CT DOSE: 1193.21 mGy.cm FINDINGS: No intra or extra-axial mass lesions are visualized. There is no CT evidence of acute cortical infarction. There is no evidence of midline shift. There is no acute hemorrhage. No calvarial fractures are visualized. There are extensive white matter hypodensities likely on a small vessel basis. There is no evidence of pathologic ventricular dilatation. There is no evidence of acute sinusitis IMPRESSION: 1. No acute intracranial findings 2. Extensive white matter disease, similar to the prior study, and likely on a small vessel basis Electronically signed by: Gonzalez Bates M.D. 09/24/2016 6:55 PM Dictated Date/Time: 09/24/2016 6:54 PM
[2016-09-24 19:01] LABS: MANUAL MICROSCOPIC REQUIRED? NO; REVIEW REQ? NO
[2016-09-24] MEDS ORDERED: CEFTRIAXONE SOD INJ 1 GM ADDVIAL IV STA (19:04)
--- NOTE | 2016-09-24 20:28 | Medical Consult ---
Consultation Date of Consultation: Sep 24, 2016. Attending Physician: Dr Ca Reason for Consultation: Potential admission for UTI History of Present Illness Mrs Lawson Gualpla is an 85 yo F with severe dementia, aortic stenosis, & complete bilateral blindness who presents with her [id number] (primary caregiver) with decreased ability to ambulate. History was obtained from daughter in law primarily. She reports 4 days ago, the pt was unable to walk as before. She was previously ambulating with walker well. She otherwise requires assistance with all ADLs. She was found to have a UTI and started on PO Keflex. Her urine culture is still pending. Her daughter in law reports she has had increasing difficulty caring for the pt at home, as she is more often incontinent of urine than before. She is not passing as many bowel movements as usual. She denies the pt having any shortness of breath. The pt is non-verbal and has not complained of pain. She was not recently on antibiotics, but had recently been on prednisone for a rash, which has cleared up and has one remaining hive. The pt has also been having hallucinations, and reports she is seeing people in the room not currently there. The daughter in law reports this occurs once in a while. Past Medical/Surgical History PMHx: Severe dementia Aortic stenosis Congestive heart failure Bilateral eye blindness PSHx: None Family History Diabetes mellitus Heart disease Social History Smoking Status: Never Smoker Drug Use: none Marital Status: Housing Status: lives with family (Lives with daughter in law and son. ) Occupation Status: retired Allergies Coded Allergies: Penicillins (Verified Allergy, Unknown, 05/24/16) Home Medications Reported Home Medications Medications Dose Route/Sig Max Daily Dose Days Date Category Dose Instructions Bactroban 2% (Mupirocin) 30 Gm Cr 1 Appln TOP UD PRN 09/24/16 Reported Cipro (Ciprofloxacin Hcl) 500 Mg Tab 500 Mg PO BID 7 09/24/16 Reported PRESCRIBED 09/23/2016, TAKE DIRECTED UNTIL GONE Lasix (Furosemide) 20 Mg Tab 20 Mg PO BID 05/21/16 Reported TAKE THIS MEDICATION EVERY MORNING AND AT NOON Micro-K Ext Rel (Potassium Chloride) 10 Meq Capcr 10 Meq PO BID 05/21/16 Reported Review of Systems A ROS was unable to be completed due to altered mental status of the patient. Physical Exam Date Time Temp Pulse Resp B/P (MAP) Pulse Ox O2 Delivery O2 Flow Rate FiO2 09/24/16 19:38 61 20 137/72 96 Room Air 09/24/16 18:15 56 09/24/16 18:14 36.7 56 20 148/68 96 Room Air 09/24/16 18:14 96 Room Air 09/24/16 18:14 96 Room Air 09/24/16 18:07 82 164/73 96 Room Air 56 148/68 09/24/16 16:39 36.7 85 20 142/95 93 Room Air General Appearance: WD/WN, no apparent distress, + thin Head: normocephalic, atraumatic Eyes: + pertinent finding (staring at ceiling, poor eye contact. ) ENT: + pertinent finding (unable to assess hearing as pt is nonverbal) Neck: no carotid bruits Respiratory/Chest: lungs clear Cardiovascular: no edema, normal peripheral pulses, + systolic murmur Abdomen/GI: normal bowel sounds, non tender, soft, + pertinent finding ( slightly distended but remains soft, is likely stool. no suprapubic tenderness even with deep palpation. no CVA tenderness. Smells of incontinent urine.) Back: + decreased range of motion, + pertinent finding (laying flat, will not move.) Extremities/Musculoskelatal: no pedal edema Neurologic/Psych: + disoriented Skin: + pertinent finding (one faint erythematous hive to lateral left anterior chest.) Laboratory Results Last 24 Hours Test 09/24/16 18:00 09/24/16 18:30 White Blood Count 6.01 K/uL Red Blood Count 5.25 M/uL Hemoglobin 14.8 g/dL Hematocrit 45.7 % Mean Corpuscular Volume 87.0 fL Mean Corpuscular Hemoglobin 28.2 pg Mean Corpuscular Hemoglobin Concent 32.4 g/dl Platelet Count 268 K/uL Mean Platelet Volume 10.6 fL Neutrophils (%) (Auto) 62.9 % Lymphocytes (%) (Auto) 21.3 % Monocytes (%) (Auto) 12.0 % Eosinophils (%) (Auto) 3.2 % Basophils (%) (Auto) 0.3 % Neutrophils # (Auto) 3.78 K/uL Lymphocytes # (Auto) 1.28 K/uL Monocytes # (Auto) 0.72 K/uL Eosinophils # (Auto) 0.19 K/uL Basophils # (Auto) 0.02 K/uL RDW Standard Deviation 54.6 fL RDW Coefficient of Variation 17.1 % Immature Granulocyte % (Auto) 0.3 % Immature Granulocyte # (Auto) 0.02 K/uL Sodium Level 143 mmol/L Potassium Level 3.9 mmol/L Chloride Level 107 mmol/L Carbon Dioxide Level 29 mmol/L Anion Gap 7.0 mmol/L Blood Urea Nitrogen 12 mg/dl Creatinine 1.20 mg/dl Est Creatinine Clear Calc Drug Dose 28.7 ml/min Estimated GFR () 47.1 Estimated GFR (Non- 40.6 BUN/Creatinine Ratio 10.3 Random Glucose 117 mg/dl Calcium Level 8.9 mg/dl Total Bilirubin 0.3 mg/dl Direct Bilirubin < 0.1 mg/dl Aspartate Amino Transf (AST/SGOT) 16 U/L Alanine Aminotransferase (ALT/SGPT) 15 U/L Alkaline Phosphatase 85 U/L Total Creatine Kinase 57 U/L Creatine Kinase MB 1.3 ng/ml Creatine Kinase MB Ratio 2.3 Troponin I 0.027 ng/ml Total Protein 7.2 gm/dl Albumin 3.3 gm/dl Thyroid Stimulating Hormone (TSH) 4.550 uIu/ml Urine Color YELLOW Urine Appearance CLEAR Urine pH 7.0 Urine Specific [place] 1.016 Urine Protein NEG Urine Glucose (UA) NEG Urine Ketones NEG Urine Occult Blood NEG Urine Nitrite POS Urine Bilirubin NEG Urine Urobilinogen NEG Urine Leukocyte Esterase MODERATE Urine WBC (Auto) 10-30 /hpf Urine RBC (Auto) 0-4 /hpf Urine Hyaline Casts (Auto) 1-5 /lpf Urine Epithelial Cells (Auto) 20-30 /lpf Urine Bacteria (Auto) NEG CXR: IMPRESSION: Elevation right hemidiaphragm. No evidence of failure. No evidence of focal pulmonary consolidation CT HEAD: IMPRESSION: 1. No acute intracranial findings 2. Extensive white matter disease, similar to the prior study, and likely on a small vessel basis Assessment & Plan 85 yo F with severe dementia, blindness, with recurrent UTIs and new ambulatory disfunction. I had a long discussion with the daughter in law, and agree with her perspective that the patient is not a good rehab candidate, and the recurrent UTI's are also a sign of the progression of her dementia,which is now getting to end-stage. She agreed that she wants to keep the patient home, but requires more help at home. She reports the patient is also a DO NOT RESUSCITATE and overall wants to focus on the patients comfort. Her previous urine cultures were reviewed, and she has never had a UTI resistant to ciprofloxacin. Her cultures from 09/23 and 09/24 are both pending. She has been afebrile while here, with stable blood pressures and no signs of sepsis. I discussed the case with the ED [employer]er who are attempting to coordinate Home Nursing Agency ED U-Turn program to get her home health over the weekend. This was discussed with my attending Dr Ca and the ED attending Dr Genao. At this point, we are awaiting to hear the disposition of the patient. Would recommend she continue PO Keflex until cultures return, and can be followed up as an outpatient with home nursing and her PCP. Resident Physician Supervision Note: I discussed the case with the resident and agree with the findings and plan as documented in the note. Any exceptions or clarifications are listed here: Case was reviewed for DC - pt basically presents with functional decline and difficulty ambulating. Her care is focused on comfort at present and we were able to arrange home nursing in order to facilitate discharge from the ER No changes were made to the pts medications Above discussed with resident and ER attending Documented By: Rodrigo Ca Additional Copies To Alyx Mahmood C.RGalinaNNenita Resident Tracking Resident Involvement: Resident Care Provided Care Provided: Adult Hospital Medicine
[2016-09-24] MEDS ORDERED: CEPH500C PO (21:16)
[2016-09-24 21:45] VITALS: BP 156/64; PULSE 70; O2SAT 93
--- NOTE | 2016-09-24 22:08 | EMERGENCY ROOM VISIT NOTE ---
History Report prepared by Roby: Kassi Grover Under the Supervision of: Dr. Julien Genao M.D. First contact with patient: 17:23 Chief Complaint: OTHER COMPLAINT Stated Complaint: DEMENTIA WORSE,UTI,SHUTTING DOWN,HALLUCINATING History of Present Illness The patient is an 85 year old female who presents to the Emergency Room with complaints of persistent leg weakness starting 4 days ago. The patient has a history of dementia. The patient's [id number] presents the history. She reports that the patient has been unable to use her legs as normal. She tries to stand her up, but she seems to be unable to. She has also been having visual hallucinations and hives on her skin. Her abdomen seems to be somewhat distended and she is not using as many diapers. She was diagnosed with a UTI yesterday and started on Ciprofloxacin. Her symptoms have not improved. The patient denies being in any pain. Source of History: family Onset: 4 days ago Position: leg (bilateral) Quality: other (weakness) Timing: other (persistent) Associated Symptoms: + urinary symptoms, + rash Note: Pt has visual hallucinations, abdominal distension. Review of Systems See HPI for pertinent positives & negatives. A total of 10 systems reviewed and were otherwise negative. Past Medical & Surgical Medical Problems: (1) Altered mental state (2) Aortic stenosis (3) Blind (4) Dementia (5) Diastolic congestive heart failure (6) Hypothermia (7) Sepsis Family History Diabetes mellitus Heart disease Social History Smoking Status: Never Smoker Drug Use: none Marital Status: Housing Status: lives alone Occupation Status: retired Current/Historical Medications Scheduled Cephalexin Monohydrate (Keflex), 1 CAP PO BID Ciprofloxacin Hcl (Cipro), 500 MG PO BID Furosemide (Lasix), 20 MG PO BID Potassium Chloride (Micro-K Ext Rel), 10 MEQ PO BID Scheduled PRN Mupirocin 2% (Bactroban 2%), 1 APPLN TOP UD PRN for Facial Rash Allergies Coded Allergies: Penicillins (Verified Allergy, Unknown, 05/24/16) Physical Exam Vital Signs Date Time Temp Pulse Resp B/P (MAP) Pulse Ox O2 Delivery O2 Flow Rate FiO2 09/24/16 21:45 70 20 156/64 93 09/24/16 19:38 61 20 137/72 96 Room Air 09/24/16 18:15 56 09/24/16 18:14 36.7 56 20 148/68 96 Room Air 09/24/16 18:14 96 Room Air 09/24/16 18:14 96 Room Air 09/24/16 18:07 82 164/73 96 Room Air 56 148/68 09/24/16 16:39 36.7 85 20 142/95 93 Room Air Physical Exam GENERAL: Patient is a healthy-appearing well-nourished female HEAD: Normocephalic atraumatic EYES: Ocular movements intact pupils equal and react to light OROPHARYNX mucous membranes are moist no exudates present no erythema or edema present NECK: Supple no nuchal rigidity CHEST: Good equal expansion LUNGS: Clear and equal to auscultation CARDIAC: Normal S1 and S2 ABDOMEN: Soft nontender no guarding BACK: No CVA tenderness EXTREMITIES: No pain upon palpation normal muscle strength in all groups no clubbing cyanosis or edema NEURO: Patient is very quiet and does not answer questions. Cranial Nerves 2-12 grossly intact Medical Decision & Procedures ER Provider Diagnostic Interpretation: X-ray results as stated below per interpretation by me and the radiologist. Radiology results as stated below per my review and radiologist interpretation: CHEST ONE VIEW PORTABLE CLINICAL HISTORY: Acute change in mental status COMPARISON STUDY: 07/09/2016 FINDINGS: The cardiac and mediastinal contours remain stable. There is elevation the right hemidiaphragm. There is no failure. There is no focal pulmonary consolidation. There is a right shoulder arthroplasty.[ IMPRESSION: Elevation right hemidiaphragm. No evidence of failure. No evidence of focal pulmonary consolidation Electronically signed by: Gonzalez Bates M.D. 09/24/2016 6:19 PM Dictated Date/Time: 09/24/2016 6:[address] HEAD WITHOUT CONTRAST (CT) CLINICAL HISTORY: Acute change in mental status COMPARISON STUDY: 07/06/2016 TECHNIQUE: Axial CT of the brain is performed from the vertex to the skull base. IV contrast was not administered for this examination. CT DOSE: 1193.21 mGy.cm FINDINGS: No intra or extra-axial mass lesions are visualized. There is no CT evidence of acute cortical infarction. There is no evidence of midline shift. There is no acute hemorrhage. No calvarial fractures are visualized. There are extensive white matter hypodensities likely on a small vessel basis. There is no evidence of pathologic ventricular dilatation. There is no evidence of acute sinusitis IMPRESSION: 1. No acute intracranial findings 2. Extensive white matter disease, similar to the prior study, and likely on a small vessel basis Electronically signed by: Gonzalez Bates M.D. 09/24/2016 6:55 PM Dictated Date/Time: 09/24/2016 6:54 PM Laboratory Results 09/24/16 18:00 Red Blood Count 5.25, Mean Corpuscular Volume 87.0, Mean Corpuscular Hemoglobin 28.2, Mean Corpuscular Hemoglobin Concent 32.4, Mean Platelet Volume 10.6, Neutrophils (%) (Auto) 62.9, Lymphocytes (%) (Auto) 21.3, Monocytes (%) (Auto) 12.0, Eosinophils (%) (Auto) 3.2, Basophils (%) (Auto) 0.3, Neutrophils # (Auto ) 3.78, Lymphocytes # (Auto) 1.28, Monocytes # (Auto) 0.72, Eosinophils # (Auto ) 0.19, Basophils # (Auto) 0.02 09/24/16 18:00 Test 09/24/16 18:00 09/24/16 18:30 White Blood Count 6.01 K/uL (4.8-10.8) Red Blood Count 5.25 M/uL (4.2-5.4) Hemoglobin 14.8 g/dL (12.0-16.0) Hematocrit 45.7 % (37-47) Mean Corpuscular Volume 87.0 fL (80-100) Mean Corpuscular Hemoglobin 28.2 pg (25-34) Mean Corpuscular Hemoglobin Concent 32.4 g/dl (32-36) Platelet Count 268 K/uL (130-400) Mean Platelet Volume 10.6 fL (7.4-10.4) Neutrophils (%) (Auto) 62.9 % Lymphocytes (%) (Auto) 21.3 % Monocytes (%) (Auto) 12.0 % Eosinophils (%) (Auto) 3.2 % Basophils (%) (Auto) 0.3 % Neutrophils # (Auto) 3.78 K/uL (1.4-6.5) Lymphocytes # (Auto) 1.28 K/uL (1.2-3.4) Monocytes # (Auto) 0.72 K/uL (0.11-0.59) Eosinophils # (Auto) 0.19 K/uL (0-0.5) Basophils # (Auto) 0.02 K/uL (0-0.2) RDW Standard Deviation 54.6 fL (36.4-46.3) RDW Coefficient of Variation 17.1 % (11.5-14.5) Immature Granulocyte % (Auto) 0.3 % Immature Granulocyte # (Auto) 0.02 K/uL (0.00-0.02) Anion Gap 7.0 mmol/L (3-11) Est Creatinine Clear Calc Drug Dose 28.7 ml/min Estimated GFR () 47.1 Estimated GFR (Non- 40.6 BUN/Creatinine Ratio 10.3 (10-20) Calcium Level 8.9 mg/dl (8.5-10.1) Total Bilirubin 0.3 mg/dl (0.2-1) Direct Bilirubin < 0.1 mg/dl (0-0.2) Aspartate Amino Transf (AST/SGOT) 16 U/L (15-37) Alanine Aminotransferase (ALT/SGPT) 15 U/L (12-78) Alkaline Phosphatase 85 U/L (45-117) Total Creatine Kinase 57 U/L (26-192) Creatine Kinase MB 1.3 ng/ml (0.5-3.6) Creatine Kinase MB Ratio 2.3 (0-3.0) Troponin I 0.027 ng/ml (0-0.045) Total Protein 7.2 gm/dl (6.4-8.2) Albumin 3.3 gm/dl (3.4-5.0) Thyroid Stimulating Hormone (TSH) 4.550 uIu/ml (0.300-4.500) Urine Color YELLOW Urine Appearance CLEAR (CLEAR) Urine pH 7.0 (4.5-7.5) Urine Specific [place] 1.016 (1.000-1.030) Urine Protein NEG (NEG) Urine Glucose (UA) NEG (NEG) Urine Ketones NEG (NEG) Urine Occult Blood NEG (NEG) Urine Nitrite POS (NEG) Urine Bilirubin NEG (NEG) Urine Urobilinogen NEG (NEG) Urine Leukocyte Esterase MODERATE (NEG) Urine WBC (Auto) 10-30 /hpf (0-5) Urine RBC (Auto) 0-4 /hpf (0-4) Urine Hyaline Casts (Auto) 1-5 /lpf (0-5) Urine Epithelial Cells (Auto) 20-30 /lpf (0-5) Urine Bacteria (Auto) NEG (NEG) Labs reviewed by ED physician. Medications Administered Medications (Trade) Dose Ordered Sig/Macy Route Start Time Stop Time Status Last Admin Dose Admin Sodium Chloride 500 ml @ 999 mls/hr Q31M STAT IV 09/24/16 17:31 09/24/16 18:01 DC 09/24/16 17:31 999 MLS/HR Ceftriaxone Sodium (Rocephin Inj) 1 gm NOW STAT IV 09/24/16 19:04 09/24/16 19:05 DC 09/24/16 19:14 1 GM ECG Indication: weakness Rate (beats per minute): 57 Rhythm: sinus bradycardia Findings: no acute ischemic change, no ectopy, other (LVH) ED Course 1724: Past medical records reviewed. The patient was evaluated in room C3. A complete history and physical examination was performed. 1730: NSS 500 ml @ 999 mls/hr IV. 1903: Rocephin Inj 1 gm IV. 1944: I discussed the patient's case with Dr. Ca, [facility] [place] hospitalist group, he does not think the patient needs to be evaluated for further management and care. 2129: Upon reexamination the patient is resting comfortably. I discussed results and treatment plan with the patient's daughter. She verbalizes agreement and understanding. The patient is ready for discharge. Medical Decision Prior records/ancillary studies reviewed and summarized above. Nursing notes reviewed. Additional history obtained from family. The patient's history was concerning for weakness. Differential diagnosis: Etiologies such as metabolic, infection, hypo/hyperglycemia, electrolyte abnormalities, cardiac sources, intracerebral event, toxicologic, neurologic, as well as others were entertained. Medication Reconciliation: I attest that I have personally reviewed the patient' s current medication list Blood Pressure Screening: Patient was found to have an elevated blood pressure and was referred to their primary care doctor for recheck and further treatment This is an 85-year-old female who presents emergency department complaining of altered mental status. Patient's daughter reports she is having hallucinations and at the patient was recently placed on Cipro for a UTI. The patient does appear to have large about of white blood cells in her urine however has normal CBC normal renal profile. I did discuss case with the hospitalist service who felt that the patient can be safely discharged home I will change the patient's Cipro over to Keflex. I stressed the need for follow-up with the patient's primary care physician. Patient and family were in agreement with the treatment plan. Consults Time Called: 1929 Consulting Physician: Dr. Ca, [facility] [place] hospitalist group Returned Call: 1944 I discussed the patient's case with him, he does not think the patient needs to be evaluated for further management and care. Impression Primary Impression: UTI (urinary tract infection) Additional Impression: Altered mental state Scribe Attestation The scribe's documentation has been prepared under my direction and personally reviewed by me in its entirety. I confirm that the note above accurately reflects all work, treatment, procedures, and medical decision making performed by me. Departure Information Dispostion Home / Self-Care Prescriptions Cephalexin Monohydrate (Keflex) 500 Mg Cap 1 CAP PO BID for 7 Days, #14 CAP Prov: Julien Genao MD 09/24/16 Referrals Alyx Mahmood C.R.N.P (PCP) Forms HOME CARE DOCUMENTATION FORM, IMPORTANT VISIT INFORMATION, WORK / SCHOOL INSTRUCTIONS Patient Instructions ED UTI Cystitis Female, My [facility] Additional Instructions You have been examined and treated today on an emergency basis only. This is not a substitute for, or an effort to provide, complete comprehensive medical care. It is impossible to recognize and treat all injuries or illnesses in a single emergency department visit. It is therefore important that you follow up closely with your PCP. Call as soon as possible for an appointment. Thank you for your time and consideration. I look forward to speaking with you again soon. Please don't hesitate to call us if you have any questions. Problem Qualifiers Primary Impression: UTI (urinary tract infection) Urinary tract infection type: acute cystitis Hematuria presence: without hematuria Qualified Codes: N30.00 - Acute cystitis without hematuria Additional Impression: Altered mental state Altered mental status type: unspecified Qualified Codes: R41.82 - Altered mental status, unspecified
== END 2016-09-24 22:00 | disposition home or self-care (01) ==
LOC: C.EDB 16:38 → C.EDC 22:00
DX: R41.82 Altered mental status, unspecified (principal); N39.0 Urinary tract infection, site not specified; R00.1 Bradycardia, unspecified; F03.90 Unspecified dementia, unspecified severity, without behavioral disturbance, psychotic disturbance, mood disturbance, and anxiety; I50.30 Unspecified diastolic (congestive) heart failure; I35.0 Nonrheumatic aortic (valve) stenosis; Z79.899 Other long term (current) drug therapy; Z88.0 Allergy status to penicillin; Z83.3 Family history of diabetes mellitus; Z82.49 Family history of ischemic heart disease and other diseases of the circulatory system

== ENCOUNTER → 2016-10-08 | Outpatient (CLI) | payer OTHER ==
[~2016-10-08] MED LIST changes: +BCTCR/30 TOP; +CIPR1TAB10 PO
== END | disposition home or self-care (01) ==
LOC: C.LABPVFM 17:52
PROVIDERS: ATTEND Nurse Practitioner Family
DX: N39.0 Urinary tract infection, site not specified (principal)

== ENCOUNTER → 2016-10-22 | Outpatient (CLI) | payer OTHER ==
[2016-10-22 13:28] LABS: URINE APPEARANCE CLEAR (CLEAR); URINE BILIRUBIN NEG (NEG); URINE COLOR YELLOW; URINE NITRITE NEG (NEG); URINE PH 5.5 (4.5-7.5); URINE SPECIFIC GRAVITY 1.014 (1.000-1.030); UROBILINOGEN NEG (NEG)
[2016-10-22 13:32] LABS: MANUAL MICROSCOPIC REQUIRED? NO; REVIEW REQ? NO
== END | disposition home or self-care (01) ==
LOC: C.LABSPEC 10:15
PROVIDERS: ATTEND Nurse Practitioner
DX: N39.0 Urinary tract infection, site not specified (principal)

== ENCOUNTER → 2016-11-05 | Outpatient (CLI) | payer OTHER ==
[2016-11-05 17:49] LABS: URINE APPEARANCE CLEAR (CLEAR); URINE BILIRUBIN NEG (NEG); URINE COLOR YELLOW; URINE NITRITE POS (NEG); URINE SPECIFIC GRAVITY 1.017 (1.000-1.030); UROBILINOGEN NEG (NEG)
[2016-11-05 17:50] LABS: MANUAL MICROSCOPIC REQUIRED? NO; REVIEW REQ? NO
== END | disposition home or self-care (01) ==
LOC: C.LABPVFM 08:32
PROVIDERS: ATTEND Family Medicine
DX: N39.0 Urinary tract infection, site not specified (principal)

== ENCOUNTER → 2016-11-18 | Outpatient (CLI) | payer OTHER ==
[2016-11-18 13:11] LABS: URINE APPEARANCE CLOUDY (CLEAR); URINE BILIRUBIN NEG (NEG); URINE COLOR YELLOW; URINE EPITHELIAL CELL AUTO >30 /lpf (0-5); URINE NITRITE POS (NEG); URINE PH 7.5 (4.5-7.5); URINE SPECIFIC GRAVITY 1.019 (1.000-1.030); UROBILINOGEN NEG (NEG); ZZUR CULT IF INDIC CLEAN CATCH YES
[2016-11-18 13:27] LABS: MANUAL MICROSCOPIC REQUIRED? NO; REVIEW REQ? NO
== END | disposition home or self-care (01) ==
LOC: C.LABPVFM 15:27
PROVIDERS: ATTEND Nurse Practitioner
DX: N39.0 Urinary tract infection, site not specified (principal); R32 Unspecified urinary incontinence

== ENCOUNTER 2017-03-26 16:15 | Inpatient (IN) | payer OTHER ==
[~2017-03-26] VITALS: Ht 152.4 cm; Wt 59.1 kg
[2017-03-26] MEDS ORDERED: SODIUM CHLORIDE 0.9% 1000ML 1,000 ML IV STA (16:34)
--- NOTE | 2017-03-26 16:43 | EMERGENCY ROOM VISIT NOTE ---
History Report prepared by Roby: Kassi Grover Under the Supervision of: Dr. Daniel Francis M.D. First contact with patient: 16:25 Chief Complaint: ALTERED MENTAL STATUS Stated Complaint: ALTERED MENTAL STATUS History of Present Illness The patient is an 86 year old female who presents to the Emergency Room with persistent altered mental status starting around 2 hours ago. The patient was doing well this morning and was at baseline. Around 1400, when the patient's [id number] returned from work, the patient was leaning on her son and crying. She was yelling "ow" and indicated her lower back. She would not walk which she is normally able to do with her walker. The patient has not fallen. She is not left alone. She felt warm. She has not been sick recently. The patient has a history of dementia. She normally does not talk and just copies what is said to her. She is legally blind. She is not on any blood thinners. She is on Lasix and potassium. She has not had problems with fluid in her lungs or feet in the past year. She has a history of UTI. She is a DNR. Source of History: family Onset: 2 hours ago Position: other (global) Quality: other (altered mental status) Timing: other (persistent) Associated Symptoms: + back pain Review of Systems As above. All other systems reviewed were negative unless otherwise stated in history. At least 10 were reviewed Past Medical & Surgical Medical Problems: (1) Altered mental state (2) Aortic stenosis (3) Blind (4) Dementia (5) Diastolic congestive heart failure (6) Hypothermia (7) Sepsis Old medical records were reviewed. Nurse's notes were reviewed and I agree with. Family History Diabetes mellitus Heart disease Social History Smoking Status: Never Smoker Drug Use: none Marital Status: Occupation Status: retired Current/Historical Medications Scheduled Furosemide (Lasix), 20 MG PO BID Loratadine (Claritin), 10 MG PO QAM Methenamine Hippurate (Hiprex), 1 GM PO BID Potassium Chloride (Micro-K Ext Rel), 10 MEQ PO BID Allergies Coded Allergies: Penicillins (Verified Allergy, Unknown, 03/26/17) Physical Exam Vital Signs Date Time Temp Pulse Resp B/P (MAP) Pulse Ox O2 Delivery O2 Flow Rate FiO2 03/26/17 18:00 40 20 115/41 97 Room Air 03/26/17 17:23 48 03/26/17 17:17 48 21 138/55 Room Air 03/26/17 17:05 52 22 148/62 99 Room Air 03/26/17 16:42 50 21 129/75 97 Room Air 03/26/17 16:28 96 Room Air 03/26/17 16:18 36.5 39 16 126/81 97 Room Air Physical Exam General: Chronically-ill appearing older female in no acute distress. Baseline dementia. Repeats some words. HEENT: Normal cephalic atraumatic. Pupils are equal round and reactive to light. Extraocular movements are intact. Oropharynx is pink with moist mucous membranes. No swelling of the mouth lips or tongue. Neck: Supple with a midline trachea. No meningeal signs or stiffness, no JVD or bruits. No Stridor. Chest: Clear to auscultation bilaterally. No wheezes or rhonchi. No increased work of breathing. Heart: regular rate and rhythm. Abdomen: Soft nontender, nondistended without rebound guarding or rigidity. Extremities: No cyanosis clubbing or edema. No calf tenderness or assymetry Spine/Back. Non tender to palpation. No CVA tenderness Skin: Good turgor without rashes. Neurologic exam: Cranial nerves two through 12 are intact. Motor and sensation are intact and symmetrical throughout. Medical Decision & Procedures ER Provider Diagnostic Interpretation: X-ray results as stated below per interpretation by me and the radiologist. Radiology results as stated below per my review and radiologist interpretation: CHEST ONE VIEW PORTABLE CLINICAL HISTORY: Atypical chest pain COMPARISON STUDY: 09/24/2016 FINDINGS: The heart is borderline enlarged. There is no focal pulmonary consolidation. There is minor atelectasis/scarring at the left lung base. There is no overt failure. There are no pleural effusions. There is a right shoulder arthroplasty.[ IMPRESSION: No active disease in the chest. Electronically signed by: Gonzalez Bates M.D. 03/26/2017 5:21 PM Dictated Date/Time: 03/26/2017 5:[address] HEAD WITHOUT CONTRAST (CT) CLINICAL HISTORY: Altered level of consciousness. COMPARISON STUDY: 09/24/2016 TECHNIQUE: Axial CT of the brain is performed from the vertex to the skull base. IV contrast was not administered for this examination. A dose lowering technique was utilized adhering to the principles of ALARA. CT DOSE: 936.76 mGy.cm FINDINGS: No intra or extra-axial mass lesions are visualized. There is no CT evidence of acute cortical infarction. There is no evidence of midline shift. There is no acute hemorrhage. No calvarial fractures are visualized. There are moderate white matter hypodensities likely on a small vessel basis. There are atrophic changes present. 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 There is mild ventricular dilatation, finding which is felt to be secondary to global volume loss There is no evidence of acute sinusitis IMPRESSION: No acute intracranial findings Electronically signed by: Gonzalez Bates M.D. 03/26/2017 5:07 PM Dictated Date/Time: 03/26/2017 5:05 PM Laboratory Results 03/26/17 16:30 Red Blood Count 5.07, Mean Corpuscular Volume 88.0, Mean Corpuscular Hemoglobin 28.6, Mean Corpuscular Hemoglobin Concent 32.5, Mean Platelet Volume 11.2, Neutrophils (%) (Auto) 67.4, Lymphocytes (%) (Auto) 19.2, Monocytes (%) (Auto) 9.9, Eosinophils (%) (Auto) 2.8, Basophils (%) (Auto) 0.4, Neutrophils # (Auto) 6.18, Lymphocytes # (Auto) 1.76, Monocytes # (Auto) 0.91, Eosinophils # (Auto) 0.26, Basophils # (Auto) 0.04 03/26/17 16:30 Test 03/26/17 16:30 03/26/17 16:37 03/26/17 16:40 03/26/17 16:45 White Blood Count 9.18 K/uL (4.8-10.8) Red Blood Count 5.07 M/uL (4.2-5.4) Hemoglobin 14.5 g/dL (12.0-16.0) Hematocrit 44.6 % (37-47) Mean Corpuscular Volume 88.0 fL (80-100) Mean Corpuscular Hemoglobin 28.6 pg (25-34) Mean Corpuscular Hemoglobin Concent 32.5 g/dl (32-36) Platelet Count 246 K/uL (130-400) Mean Platelet Volume 11.2 fL (7.4-10.4) Neutrophils (%) (Auto) 67.4 % Lymphocytes (%) (Auto) 19.2 % Monocytes (%) (Auto) 9.9 % Eosinophils (%) (Auto) 2.8 % Basophils (%) (Auto) 0.4 % Neutrophils # (Auto) 6.18 K/uL (1.4-6.5) Lymphocytes # (Auto) 1.76 K/uL (1.2-3.4) Monocytes # (Auto) 0.91 K/uL (0.11-0.59) Eosinophils # (Auto) 0.26 K/uL (0-0.5) Basophils # (Auto) 0.04 K/uL (0-0.2) RDW Standard Deviation 51.8 fL (36.4-46.3) RDW Coefficient of Variation 16.2 % (11.5-14.5) Immature Granulocyte % (Auto) 0.3 % Immature Granulocyte # (Auto) 0.03 K/uL (0.00-0.02) Prothrombin Time 10.4 SECONDS (9.0-12.0) Prothromb Time International Ratio 1.0 (0.9-1.1) Activated Partial Thromboplast Time 26.1 SECONDS (21.0-31.0) Partial Thromboplastin Ratio 1.0 Est Creatinine Clear Calc Drug Dose 35.5 ml/min Estimated GFR () 59.0 Estimated GFR (Non- 50.9 BUN/Creatinine Ratio 18.7 (10-20) Calcium Level 7.9 mg/dl (8.5-10.1) Total Bilirubin 0.2 mg/dl (0.2-1) Direct Bilirubin < 0.1 mg/dl (0-0.2) Aspartate Amino Transf (AST/SGOT) 16 U/L (15-37) Alanine Aminotransferase (ALT/SGPT) 14 U/L (12-78) Alkaline Phosphatase 97 U/L (45-117) Total Creatine Kinase 77 U/L (26-192) Creatine Kinase MB 3.4 ng/ml (0.5-3.6) Creatine Kinase MB Ratio 4.4 (0-3.0) Total Protein 7.1 gm/dl (6.4-8.2) Albumin 3.2 gm/dl (3.4-5.0) Lipase 133 U/L (73-393) Thyroid Stimulating Hormone (TSH) 5.650 uIu/ml (0.300-4.500) Bedside Lactic Acid Venous 1.80 mmol/L (0.90-1.70) Bedside Hemoglobin 15.0 g/dl (12.0-16.0) Bedside Hematocrit 44 % (37-47) Bedside Sodium 140 mEq/L (135-144) Bedside Potassium 3.6 mEq/L (3.3-5.0) Bedside Chloride 99 mEq/L (101-112) Bedside Total CO2 27 mEq/l (24-31) Anion Gap 19.0 mmol/L (16-25) Bedside Blood Urea Nitrogen 19 mg/dl (7-18) Bedside Creatinine 1.0 mg/dl (0.6-1.3) Bedside Glucose (other) 126 mg/dl (70-99) Bedside Ionized Calcium (Lu) 1.11 mmol/l (1.12-1.32) Bedside Troponin I < 0.030 ng/ml (0-0.045) Test 03/26/17 16:53 Urine Color YELLOW Urine Appearance CLOUDY (CLEAR) Urine pH 5.0 (4.5-7.5) Urine Specific Tyro 1.011 (1.000-1.030) Urine Protein NEG (NEG) Urine Glucose (UA) NEG (NEG) Urine Ketones NEG (NEG) Urine Occult Blood TRACE (NEG) Urine Nitrite POS (NEG) Urine Bilirubin NEG (NEG) Urine Urobilinogen NEG (NEG) Urine Leukocyte Esterase LARGE (NEG) Urine WBC (Auto) >30 /hpf (0-5) Urine RBC (Auto) 0-4 /hpf (0-4) Urine Hyaline Casts (Auto) 1-5 /lpf (0-5) Urine Epithelial Cells (Auto) 0-5 /lpf (0-5) Urine Bacteria (Auto) 4+ (NEG) Laboratory studies as stated above per my review. Medications Administered Medications (Trade) Dose Ordered Sig/Macy Route Start Time Stop Time Status Last Admin Dose Admin Sodium Chloride 1,000 ml @ 999 mls/hr Q1H1M STAT IV 03/26/17 16:34 03/26/17 17:34 DC 03/26/17 16:34 999 MLS/HR Levofloxacin (Levaquin / D5W) 500 mg NOW ONCE IV 03/26/17 17:15 03/26/17 17:16 DC 03/26/17 17:16 500 MG ECG Indication: altered mental status Rate (beats per minute): 45 Rhythm: sinus bradycardia Findings: PAC, other (poor baseline, LVH with repolarization) Comparison ECG Date: 24-Sep-2016 Change: PAC now present. ED Course 1626: Past medical records reviewed. The patient was evaluated in room A1, and a complete history and physical examination were performed. 1634: NSS 1000 ml @ 999 mls/hr IV. 1636: I reevaluated the patient. Her heart rate is in the 50s. She is stable. IV and blood work was obtained. 1646: I reevaluated the patient. I discussed the Istat results with her daughter in law. Cath urine is being obtained. 1710: I reevaluated the patient. She seems comfortable. Her blood pressure is normal. She will get antibiotics. I discussed the results and treatment plan with the patient's [id number]. She verbalized agreement of the treatment plan. The patient will be evaluated for further management. 1715: Levofloxacin 500 mg IV. 1721: I discussed the patient's case [place] Dr. Asia Pop, [facility] [place] The patient will be evaluated for further management. Medical Decision Differentials include, but are not limited to; arrhythmia, electrolyte or metabolic abnormality, infection, sepsis, UTI, intracranial process. This patient comes in as described above. She was placed in room A1 and I saw her promptly as she was brought in after her heart rate was in the 30s in triage. She does have a history of significant dementia and was more confused today. She is difficult to evaluate due to her dementia. There's been no trauma or recent illness or fever. We quickly moved to evaluate her. Her EKG looks about the same as before with exception of some PACs is no definite ischemia. IV access was established was placed on a platform architect. Multiple blood testing was obtained as well as x-ray urinalysis EKG and CAT scan of her head. Her initial i-STAT did not show any significant abnormalities to explain her symptoms. She has no significant electrolyte abnormalities. Her blood sugar is normal. She's not significantly anemic. She was reassessed frequently. I discussed her care at length with her [id number] who is at the bedside and confirms that she is a DO NOT RESUSCITATE. Her CAT scan shows no acute findings. Chest x-ray shows no acute findings to suggest pneumonia or CHF. Given her CHF history she was hydrated gently with IV fluids. Her lactic acid is not significantly elevated at 1.8. Her urinalysis does strongly suggest a UTI with a culture pending. She is penicillin allergic I reviewed her record she's received Levaquin IV before without any problems and was given Levaquin 500 milligrams IV. At this point, it appears that she has a UTI which is causing her to be weak and more confused I do think she needs to be admitted for further treatment and evaluation. I have consulted the [facility] hospitalist to see her in the emergency department. Medication Reconcilliation Current Medication List: was personally reviewed by me Blood Pressure Screening Patient's blood pressure: Normal blood pressure Blood pressure disposition: Did not require urgent referral Consults Time Called: 1715 Consulting Physician: Dr. Asia Pop, [facility] [place] Returned Call: 1721 I discussed the patient's case with him. The patient will be evaluated for further management. Impression Primary Impression: Altered mental status Additional Impressions: Urinary tract infection Bradycardia Weakness Critical Care I have personally spent greater than 30 minutes of critical care time in the direct management of this patient. This includes bedside care, interpretation of diagnostic studies, and testing, discussion with consultants, patient, and family members, and other required patient management activities. This 30 minutes is in excess of all separately billable procedures. Scribe Attestation The scribe's documentation has been prepared under my direction and personally reviewed by me in its entirety. I confirm that the note above accurately reflects all work, treatment, procedures, and medical decision making performed by me. Departure Information Dispostion Being Evaluated By Hospitalist Referrals Alyx Mahmood, [place].Radha (PCP) Patient Instructions My [facility] Problem Qualifiers
[2017-03-26] MEDS ORDERED: CLR10 PO (16:52)
[2017-03-26] MEDS ORDERED: METH-1117 PO (16:52)
[2017-03-26 16:53] LABS: ISTAT IONIZED CALCIUM 1.11 mmol/l (1.12-1.32); ISTAT POTASSIUM 3.6 mEq/L (3.3-5.0)
[2017-03-26 16:57] LABS: BASO % 0.4 %; BASO ABS # 0.04 K/uL (0-0.2); EOS % 2.8 %; EOS ABS # 0.26 K/uL (0-0.5); HEMATOCRIT 44.6 % (37-47); HEMOGLOBIN 14.5 g/dL (12.0-16.0); IG# 0.03 K/uL (0.00-0.02); LYMPH % 19.2 %; LYMPH ABS # 1.76 K/uL (1.2-3.4); MEAN CORPUSCULAR HEMOGLOBIN 28.6 pg (25-34); MEAN CORPUSCULAR HGB CONC 32.5 g/dl (32-36); MEAN PLATELET VOLUME 11.2 fL (7.4-10.4); MONO % 9.9 %; MONO ABS # 0.91 K/uL (0.11-0.59); NEUT % 67.4 %; NEUT ABS # 6.18 K/uL (1.4-6.5); PLATELET COUNT 246 K/uL (130-400); RED CELL DISTRIBUTION WIDTH CV 16.2 % (11.5-14.5); RED CELL DISTRIBUTION WIDTH SD 51.8 fL (36.4-46.3); WHITE BLOOD COUNT 9.18 K/uL (4.8-10.8)
[2017-03-26 17:08] LABS: PTT PATIENT 26.1 SECONDS (21.0-31.0)
--- NOTE | 2017-03-26 17:08 | DIAGNOSTIC IMAGING REPORT ---
CT HEAD WITHOUT CONTRAST (CT) CLINICAL HISTORY: Altered level of consciousness. COMPARISON STUDY: 09/24/2016 TECHNIQUE: Axial CT of the brain is performed from the vertex to the skull base. IV contrast was not administered for this examination. A dose lowering technique was utilized adhering to the principles of ALARA. CT DOSE: 936.76 mGy.cm FINDINGS: No intra or extra-axial mass lesions are visualized. There is no CT evidence of acute cortical infarction. There is no evidence of midline shift. There is no acute hemorrhage. No calvarial fractures are visualized. There are moderate white matter hypodensities likely on a small vessel basis. There are atrophic changes present. 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 There is mild ventricular dilatation, finding which is felt to be secondary to global volume loss There is no evidence of acute sinusitis IMPRESSION: No acute intracranial findings Electronically signed by: Gonzalez Bates M.D. 03/26/2017 5:07 PM Dictated Date/Time: 03/26/2017 5:05 PM
[2017-03-26] MEDS ORDERED: LEVAQUIN 500MG / 100ML D5W IV ONE (17:15)
[2017-03-26 17:16] LABS: ALBUMIN 3.2 gm/dl (3.4-5.0); ALT/SGPT 14 U/L (12-78); AST/SGOT 16 U/L (15-37); BLOOD UREA NITROGEN 18 mg/dl (7-18); CALCIUM 7.9 mg/dl (8.5-10.1); CARBON DIOXIDE 28 mmol/L (21-32); CREATININE 0.99 mg/dl (0.60-1.20); GLUCOSE 118 mg/dl (70-99); LIPASE 133 U/L (73-393); POTASSIUM 3.5 mmol/L (3.5-5.1); SODIUM 138 mmol/L (136-145)
--- NOTE | 2017-03-26 17:23 | DIAGNOSTIC IMAGING REPORT ---
CHEST ONE VIEW PORTABLE CLINICAL HISTORY: Atypical chest pain COMPARISON STUDY: 09/24/2016 FINDINGS: The heart is borderline enlarged. There is no focal pulmonary consolidation. There is minor atelectasis/scarring at the left lung base. There is no overt failure. There are no pleural effusions. There is a right shoulder arthroplasty.[ IMPRESSION: No active disease in the chest. Electronically signed by: Gonzalez Bates M.D. 03/26/2017 5:21 PM Dictated Date/Time: 03/26/2017 5:21 PM
[2017-03-26 17:27] LABS: ALKALINE PHOSPHATASE 97 U/L (45-117); CKMB 3.4 ng/ml (0.5-3.6); TOTAL PROTEIN 7.1 gm/dl (6.4-8.2)
[2017-03-26] MEDS ORDERED: MAGNESIUM HYDROXIDE SUSP 30 ML UDC PO PRN (21:15)
[2017-03-26] MEDS ORDERED: ALUMINUM/MAGNESIUM/SIMETH (MAALOX MAX) 30 ML UDC PO PRN (21:15)
[2017-03-26] MEDS ORDERED: ACETAMINOPHEN 325 MG TAB PO PRN (21:15)
[2017-03-26] MEDS ORDERED: ONDANSETRON INJ 2 MG/ML 2 ML VIAL IV PRN (21:15)
[2017-03-26] MEDS ORDERED: POLYETHYLENE (MIRALAX) 17 GM PACK PO PRN (21:15)
--- NOTE | 2017-03-26 21:55 | Family Medicine Progress Note ---
Progress Note Date of Service Mar 26, 2017.
--- NOTE | 2017-03-26 22:20 | History and Physical ---
History & Physical Date & Time of Service: Mar 26, 2017 at 22:20 Chief Complaint: Altered Mental Status Primary Care Physician: Alyx Mahmood C.R.N.P History of Present Illness Source: family, hospital records This is an 85-year-old female with h/o of aortic stenosis, blindness, dementia, diastolic CHF presenting with acute confusion. Patient has significant dementia at baseline and is minimally verbal according to family. Today around 2 :30 daughter notices acute change in mental status. Patient was refusing to walk, and acting like a child, crying whimpering. Per family's it is difficult for her to communicate complaints. It did not seem like she was in pain. Patient has h/o incontinence and recurrent UTI's. In the ED, she arrived afebrile VSS. CBC unremarkable, sinus bradycardia with PAC;s Troponin unremarkable, TSH wnl electrolytes, Glucose unremarkable. UA was consistent with UTI,. CXR was negative. CT Head was negative. She was given 1 L IV NS She was placed on Levaquin. Past Medical/Surgical History Medical Problems: (1) Blind Status: Chronic (2) Dementia Status: Chronic (3) Diastolic congestive heart failure Status: Chronic Family History Diabetes mellitus Heart disease Social History Smoking Status: Never Smoker Alcohol Use: none Drug Use: none Marital Status: Housing status: lives with family Occupational Status: retired Multi-Drug Resistant Organisms History of MDRO: No Allergies Coded Allergies: Sulfa Antibiotics (Verified Allergy, Intermediate, hives, 03/26/17) Penicillins (Verified Allergy, Unknown, 03/26/17) Home Medications Scheduled Furosemide (Lasix), 20 MG PO BID Loratadine (Claritin), 10 MG PO QAM Methenamine Hippurate (Hiprex), 1 GM PO BID Potassium Chloride (Micro-K Ext Rel), 10 MEQ PO BID Review of Systems unable to assess review of symptoms given patient's mental status Physical Exam Vital Signs Date Time Temp Pulse Resp B/P (MAP) Pulse Ox O2 Delivery O2 Flow Rate FiO2 03/26/17 22:00 52 153/67 97 Room Air 03/26/17 19:59 48 20 139/43 96 Room Air 03/26/17 18:00 40 20 115/41 97 Room Air 03/26/17 17:23 48 03/26/17 17:17 48 21 138/55 Room Air 03/26/17 17:05 52 22 148/62 99 Room Air 03/26/17 16:42 50 21 129/75 97 Room Air 03/26/17 16:28 96 Room Air 03/26/17 16:18 36.5 39 16 126/81 97 Room Air GENERAL: alert, no distress, non-toxic EYE EXAM: normal conjunctiva, PERRL and EOM's grossly intact OROPHARYNX: no exudate, no erythema, lips, buccal mucosa, and tongue normal and mucous membranes are moist NECK: supple, no nuchal rigidity, no adenopathy, non-tender LUNGS: Clear to auscultation. Normal chest wall mechanics HEART:Systolic murmur, S1 normal and S2 normal ABDOMEN: abdomen soft, non-tender, normo-active bowel sounds, no masses, no rebound or guarding. SKIN: no rashes and no bruising LOWER EXTREMITIES: No pitting edema. NEURO EXAM: Alert, Oriented x 0 Diagnostics Laboratory Results Results Past 24 Hours Test 03/26/17 16:30 03/26/17 16:37 03/26/17 16:40 03/26/17 16:45 Range/Units White Blood Count 9.18 4.8-10.8 K/uL Red Blood Count 5.07 4.2-5.4 M/uL Hemoglobin 14.5 12.0-16.0 g/dL Hematocrit 44.6 37-47 % Mean Corpuscular Volume 88.0 80-100 fL Mean Corpuscular Hemoglobin 28.6 25-34 pg Mean Corpuscular Hemoglobin Concent 32.5 32-36 g/dl Platelet Count 246 130-400 K/uL Mean Platelet Volume 11.2 7.4-10.4 fL Neutrophils (%) (Auto) 67.4 % Lymphocytes (%) (Auto) 19.2 % Monocytes (%) (Auto) 9.9 % Eosinophils (%) (Auto) 2.8 % Basophils (%) (Auto) 0.4 % Neutrophils # (Auto) 6.18 1.4-6.5 K/uL Lymphocytes # (Auto) 1.76 1.2-3.4 K/uL Monocytes # (Auto) 0.91 0.11-0.59 K/uL Eosinophils # (Auto) 0.26 0-0.5 K/uL Basophils # (Auto) 0.04 0-0.2 K/uL RDW Standard Deviation 51.8 36.4-46.3 fL RDW Coefficient of Variation 16.2 11.5-14.5 % Immature Granulocyte % (Auto) 0.3 % Immature Granulocyte # (Auto) 0.03 0.00-0.02 K/uL Prothrombin Time 10.4 9.0-12.0 SECONDS Prothromb Time International Ratio 1.0 0.9-1.1 Activated Partial Thromboplast Time 26.1 21.0-31.0 SECONDS Partial Thromboplastin Ratio 1.0 Sodium Level 138 136-145 mmol/L Potassium Level 3.5 3.5-5.1 mmol/L Chloride Level 103 98-107 mmol/L Carbon Dioxide Level 28 21-32 mmol/L Anion Gap 7.0 19.0 16-25 mmol/L Blood Urea Nitrogen 18 7-18 mg/dl Creatinine 0.99 0.60-1.20 mg/dl Est Creatinine Clear Calc Drug Dose 35.5 ml/min Estimated GFR () 59.0 Estimated GFR (Non- 50.9 BUN/Creatinine Ratio 18.7 10-20 Random Glucose 118 70-99 mg/dl Calcium Level 7.9 8.5-10.1 mg/dl Total Bilirubin 0.2 0.2-1 mg/dl Direct Bilirubin < 0.1 0-0.2 mg/dl Aspartate Amino Transf (AST/SGOT) 16 15-37 U/L Alanine Aminotransferase (ALT/SGPT) 14 12-78 U/L Alkaline Phosphatase 97 45-117 U/L Total Creatine Kinase 77 26-192 U/L Creatine Kinase MB 3.4 0.5-3.6 ng/ml Creatine Kinase MB Ratio 4.4 0-3.0 Total Protein 7.1 6.4-8.2 gm/dl Albumin 3.2 3.4-5.0 gm/dl Lipase 133 73-393 U/L Thyroid Stimulating Hormone (TSH) 5.650 0.300-4.500 uIu/ml Bedside Lactic Acid Venous 1.80 0.90-1.70 mmol/L Bedside Hemoglobin 15.0 12.0-16.0 g/dl Bedside Hematocrit 44 37-47 % Bedside Sodium 140 135-144 mEq/L Bedside Potassium 3.6 3.3-5.0 mEq/L Bedside Chloride 99 101-112 mEq/L Bedside Total CO2 27 24-31 mEq/l Bedside Blood Urea Nitrogen 19 7-18 mg/dl Bedside Creatinine 1.0 0.6-1.3 mg/dl Bedside Glucose (other) 126 70-99 mg/dl Bedside Ionized Calcium (Lu) 1.11 1.12-1.32 mmol/l Bedside Troponin I < 0.030 0-0.045 ng/ml Test 03/26/17 16:53 Range/Units Urine Color YELLOW Urine Appearance CLOUDY CLEAR Urine pH 5.0 4.5-7.5 Urine Specific Calvin 1.011 1.000-1.030 Urine Protein NEG NEG Urine Glucose (UA) NEG NEG Urine Ketones NEG NEG Urine Occult Blood TRACE NEG Urine Nitrite POS NEG Urine Bilirubin NEG NEG Urine Urobilinogen NEG NEG Urine Leukocyte Esterase LARGE NEG Urine WBC (Auto) >30 0-5 /hpf Urine RBC (Auto) 0-4 0-4 /hpf Urine Hyaline Casts (Auto) 1-5 0-5 /lpf Urine Epithelial Cells (Auto) 0-5 0-5 /lpf Urine Bacteria (Auto) 4+ NEG Microbiology Results 03/26/17 Blood Culture, Received Pending 03/26/17 Blood Culture, Received Pending 03/26/17 Urine Culture, Received Pending Diagnostic Radiology CT HEAD WITHOUT CONTRAST (CT) CLINICAL HISTORY: Altered level of consciousness. COMPARISON STUDY: 09/24/2016 TECHNIQUE: Axial CT of the brain is performed from the vertex to the skull base. IV contrast was not administered for this examination. A dose lowering technique was utilized adhering to the principles of ALARA. CT DOSE: 936.76 mGy.cm FINDINGS: No intra or extra-axial mass lesions are visualized. There is no CT evidence of acute cortical infarction. There is no evidence of midline shift. There is no acute hemorrhage. No calvarial fractures are visualized. There are moderate white matter hypodensities likely on a small vessel basis. There are atrophic changes present. 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 There is mild ventricular dilatation, finding which is felt to be secondary to global volume loss There is no evidence of acute sinusitis IMPRESSION: No acute intracranial findings CHEST ONE VIEW PORTABLE CLINICAL HISTORY: Atypical chest pain COMPARISON STUDY: 09/24/2016 FINDINGS: The heart is borderline enlarged. There is no focal pulmonary consolidation. There is minor atelectasis/scarring at the left lung base. There is no overt failure. There are no pleural effusions. There is a right shoulder arthroplasty.[ IMPRESSION: No active disease in the chest. EKG Sinus bradycardia, no acute ischemia Impression Assessment and Plan 85-year-old female with h/o of aortic stenosis, blindness, dementia,diastolic CHF presenting with acute confusion found to have UTI. UTI -h/o recurrent UTI -likely contributor to acute change in mental status -Give IV Levaquin 500 mg x1 in ED -Continue IV Levaquin daily Acute Encephalopathy, Dementia -acute encephalopathy in the setting of severe dementia likely secondary to UTI -electrolytes, CBC unremarkable -TSH wnl electrolytes, Glucose unremarkable. -CXR was negative, CT Head was negative. -Given 1L NS in the ED Diastolic CHF, Aortic Stenosissinus bradycardia with PACs -stable , asx -Troponin unremarkable -Continue Lasix 20 mg BID -Echo from 05/21/16 * Hyperdynamic left ventricular systolic function. * Left ventricular hypertrophy. * Left ventricular diastolic dysfunction. * Mild left atrial dilatation. * Probable moderate to severe aortic stenosis. * Mild tricuspid regurgitation. * Normal estimated right heart pressures. * EF>70% DVT Prophylaxis - Heparin Code status: DNR Disposition: Admit to Med/Surg Resident Physician Supervision Note: I was present with Dr. Oropeza during the history and exam. I discussed the case with the resident and agree with the findings and plan as documented in the note. Any exceptions or clarifications are listed here: 86 y/o F Hx diastolic CHF, advanced dementia presenting with acute AMS as described by family - pt cannot communicate verbally. Her UA is + on admission OE Disoriented at baseline S1,2 R +M CTAB - poor effort NT, ND No CCE P: We will treat the pts UTI which may have exacerbated her dementia She received 1L IVF in the ER - appears euvolemic so that we will resume AM Lasix Family was present at bedside for admission Above discussed with resident and ER attending Documented By: Rodrigo Ca Level of Care Med/Surg Resuscitation Status DO NOT RESUSCITATE VTE Prophylaxis VTE Risk Assessment Done? Y/N: Yes Risk Level: Moderate Given or contraindicated: Unfractionated heparin SQ Note Total Time: Critical Care 30 - 74 minutes Resident Tracking Resident Involvement: Resident Care Provided Care Provided: Adult Hospital Medicine
[2017-03-26 23:08] VITALS: BP 137/66; PULSE 52; TEMP 36.4; O2SAT 93; BMI 25.4
[2017-03-27] VITALS (7 sets, daily range): BP systolic 91–148; BP diastolic 53–68; PULSE 39–51; TEMP 36.7–36.8; O2SAT 93–95; Ht 152.4 cm; Wt 59.1 kg
[2017-03-27] MEDS ORDERED: NURSING DECISION MEDICATION ORDER SCH (03:00)
[2017-03-27] MEDS: HEPARIN SOD 5000 UNIT/0.5 ML CARP SQ SCH ×2 (06:26→17:53)
[2017-03-27 06:27] LABS: BASO % 0.4 %; BASO ABS # 0.03 K/uL (0-0.2); EOS % 2.5 %; EOS ABS # 0.17 K/uL (0-0.5); HEMATOCRIT 44.3 % (37-47); HEMOGLOBIN 14.4 g/dL (12.0-16.0); IG# 0.01 K/uL (0.00-0.02); LYMPH % 20.3 %; MEAN CELL VOLUME 87.9 fL (80-100); MEAN CORPUSCULAR HEMOGLOBIN 28.6 pg (25-34); MEAN CORPUSCULAR HGB CONC 32.5 g/dl (32-36); MEAN PLATELET VOLUME 11.4 fL (7.4-10.4); MONO % 9.7 %; MONO ABS # 0.67 K/uL (0.11-0.59); NEUT ABS # 4.63 K/uL (1.4-6.5); PLATELET COUNT 225 K/uL (130-400); RED CELL DISTRIBUTION WIDTH CV 16.2 % (11.5-14.5); RED CELL DISTRIBUTION WIDTH SD 52.1 fL (36.4-46.3); WHITE BLOOD COUNT 6.91 K/uL (4.8-10.8)
[2017-03-27 07:10] LABS: ALBUMIN 3.2 gm/dl (3.4-5.0); CALCIUM 8.3 mg/dl (8.5-10.1); CREATININE 0.86 mg/dl (0.60-1.20); POTASSIUM 4.3 mmol/L (3.5-5.1); TOTAL PROTEIN 6.9 gm/dl (6.4-8.2)
[2017-03-27] MEDS ORDERED: INFLUENZA ADMINISTRATION CHARGE ONE (08:00)
[2017-03-27] MEDS ORDERED: INFLUENZA VIRUS QUAD VACCINE 0.5 ML SYR IM. ONE (08:00)
[2017-03-27] MEDS: POTASSIUM CHLORIDE 10 MEQ TABCR PO SCH ×2 (08:18→19:42)
[2017-03-27] MEDS: FUROSEMIDE 20 MG TAB PO SCH ×2 (08:18→09:16)
--- NOTE | 2017-03-27 13:03 | Family Medicine Progress Note ---
Progress Note Date of Service Mar 27, 2017. Subjective Pt evaluation today including: conversation w/ patient, physical exam, chart review, lab review, review of studies, conversation w/ jd edwards consultant Patient only nodding and shaking her head appropriately to questions. She denies any pain, shortness of breath, palpitations or dizziness. All Other Systems: Reviewed and Negative Medications Current Inpatient Medications Medications (Trade) Dose Ordered Sig/Macy Route Start Time Stop Time Status Last Admin Dose Admin Acetaminophen (Tylenol Tab) 650 mg Q4H PRN PO 03/26/17 21:15 04/25/17 21:14 Al Hydrox/Mg Hydrox/Simethicone (Maalox Max Susp) 15 ml Q4H PRN PO 03/26/17 21:15 04/25/17 21:14 Magnesium Hydroxide (Milk Of Magnesia Susp) 30 ml Q6H PRN PO 03/26/17 21:15 04/25/17 21:14 Polyethylene (Miralax Powder Packet) 17 gm DAILY PRN PO 03/26/17 21:15 04/25/17 21:14 Ondansetron HCl (Zofran Inj) 4 mg Q6H PRN IV 03/26/17 21:15 04/25/17 21:14 Heparin Sodium (Porcine) (Heparin Sq 5000 Unit/0.5ml) 5,000 unit Q12H SQ 03/27/17 06:00 04/26/17 05:59 03/27/17 06:26 5,000 UNIT Levofloxacin 250 mg/Prmx 50 ml @ 100 mls/hr Q24H IV 03/27/17 18:00 03/31/17 17:59 Furosemide (Lasix Tab) 20 mg BID17 PO 03/27/17 08:00 04/26/17 07:59 03/27/17 09:16 20 MG Potassium Chloride (Klor-Con M10) 10 meq BID PO 03/27/17 08:00 04/26/17 07:59 03/27/17 08:18 10 MEQ Miconazole Nitrate (Desenex Powder) 1 appln PRN PRN EXT 03/27/17 04:15 04/26/17 04:14 Objective Vital Signs Date Time Temp Pulse Resp B/P (MAP) Pulse Ox O2 Delivery O2 Flow Rate FiO2 03/27/17 08:00 95 Room Air 03/27/17 07:48 36.8 51 20 148/68 (94) 95 03/27/17 02:47 93 Room Air 03/26/17 23:08 36.4 52 18 137/66 93 Room Air 03/26/17 22:50 52 20 153/67 97 03/26/17 22:00 52 153/67 97 Room Air 03/26/17 19:59 48 20 139/43 96 Room Air 03/26/17 18:00 40 20 115/41 97 Room Air 03/26/17 17:23 48 03/26/17 17:17 48 21 138/55 Room Air 03/26/17 17:05 52 22 148/62 99 Room Air 03/26/17 16:42 50 21 129/75 97 Room Air 03/26/17 16:28 96 Room Air 03/26/17 16:18 36.5 39 16 126/81 97 Room Air Physical Exam General Appearance: no apparent distress, + thin ENT: + pertinent finding (dry mucus membranes) Respiratory/Chest: lungs clear, normal breath sounds, no respiratory distress, no accessory muscle use Cardiovascular: regular rate, rhythm, no edema, + systolic murmur (throughout but loudest in LUSB) Abdomen: normal bowel sounds, soft, + tenderness (says 'oh' generalized, no guarding or rebound, same at baseline as per family) Neurologic/Psychiatric: alert, + pertinent finding (nods for yes and shakes head for no but non verbal for myself) Skin: normal color, warm/dry, no rash Laboratory Results 03/27/17 05:30 Red Blood Count 5.04, Mean Corpuscular Volume 87.9, Mean Corpuscular Hemoglobin 28.6, Mean Corpuscular Hemoglobin Concent 32.5, Mean Platelet Volume 11.4, Neutrophils (%) (Auto) 67.0, Lymphocytes (%) (Auto) 20.3, Monocytes (%) (Auto) 9.7, Eosinophils (%) (Auto) 2.5, Basophils (%) (Auto) 0.4, Neutrophils # (Auto) 4.63, Lymphocytes # (Auto) 1.40, Monocytes # (Auto) 0.67, Eosinophils # (Auto) 0.17, Basophils # (Auto) 0.03 03/27/17 05:30 Test 03/26/17 16:30 03/26/17 16:37 03/26/17 16:40 03/26/17 16:45 Prothrombin Time 10.4 SECONDS (9.0-12.0) Prothromb Time International Ratio 1.0 (0.9-1.1) Activated Partial Thromboplast Time 26.1 SECONDS (21.0-31.0) Partial Thromboplastin Ratio 1.0 Direct Bilirubin < 0.1 mg/dl (0-0.2) Total Creatine Kinase 77 U/L (26-192) Creatine Kinase MB 3.4 ng/ml (0.5-3.6) Creatine Kinase MB Ratio 4.4 (0-3.0) Lipase 133 U/L (73-393) Thyroid Stimulating Hormone (TSH) 5.650 uIu/ml (0.300-4.500) Bedside Lactic Acid Venous 1.80 mmol/L (0.90-1.70) Bedside Hemoglobin 15.0 g/dl (12.0-16.0) Bedside Hematocrit 44 % (37-47) Bedside Sodium 140 mEq/L (135-144) Bedside Potassium 3.6 mEq/L (3.3-5.0) Bedside Chloride 99 mEq/L (101-112) Bedside Total CO2 27 mEq/l (24-31) Bedside Blood Urea Nitrogen 19 mg/dl (7-18) Bedside Creatinine 1.0 mg/dl (0.6-1.3) Bedside Glucose (other) 126 mg/dl (70-99) Bedside Ionized Calcium (Lu) 1.11 mmol/l (1.12-1.32) Bedside Troponin I < 0.030 ng/ml (0-0.045) Test 03/26/17 16:53 03/27/17 05:30 03/27/17 11:10 Urine Color YELLOW Urine Appearance CLOUDY (CLEAR) Urine pH 5.0 (4.5-7.5) Urine Specific Newcomb 1.011 (1.000-1.030) Urine Protein NEG (NEG) Urine Glucose (UA) NEG (NEG) Urine Ketones NEG (NEG) Urine Occult Blood TRACE (NEG) Urine Nitrite POS (NEG) Urine Bilirubin NEG (NEG) Urine Urobilinogen NEG (NEG) Urine Leukocyte Esterase LARGE (NEG) Urine WBC (Auto) >30 /hpf (0-5) Urine RBC (Auto) 0-4 /hpf (0-4) Urine Hyaline Casts (Auto) 1-5 /lpf (0-5) Urine Epithelial Cells (Auto) 0-5 /lpf (0-5) Urine Bacteria (Auto) 4+ (NEG) White Blood Count 6.91 K/uL (4.8-10.8) Red Blood Count 5.04 M/uL (4.2-5.4) Hemoglobin 14.4 g/dL (12.0-16.0) Hematocrit 44.3 % (37-47) Mean Corpuscular Volume 87.9 fL (80-100) Mean Corpuscular Hemoglobin 28.6 pg (25-34) Mean Corpuscular Hemoglobin Concent 32.5 g/dl (32-36) Platelet Count 225 K/uL (130-400) Mean Platelet Volume 11.4 fL (7.4-10.4) Neutrophils (%) (Auto) 67.0 % Lymphocytes (%) (Auto) 20.3 % Monocytes (%) (Auto) 9.7 % Eosinophils (%) (Auto) 2.5 % Basophils (%) (Auto) 0.4 % Neutrophils # (Auto) 4.63 K/uL (1.4-6.5) Lymphocytes # (Auto) 1.40 K/uL (1.2-3.4) Monocytes # (Auto) 0.67 K/uL (0.11-0.59) Eosinophils # (Auto) 0.17 K/uL (0-0.5) Basophils # (Auto) 0.03 K/uL (0-0.2) RDW Standard Deviation 52.1 fL (36.4-46.3) RDW Coefficient of Variation 16.2 % (11.5-14.5) Immature Granulocyte % (Auto) 0.1 % Immature Granulocyte # (Auto) 0.01 K/uL (0.00-0.02) Anion Gap 5.0 mmol/L (3-11) Est Creatinine Clear Calc Drug Dose 36.4 ml/min Estimated GFR () 69.9 Estimated GFR (Non- 60.3 BUN/Creatinine Ratio 17.7 (10-20) Calcium Level 8.3 mg/dl (8.5-10.1) Total Bilirubin 0.5 mg/dl (0.2-1) Aspartate Amino Transf (AST/SGOT) 17 U/L (15-37) Alanine Aminotransferase (ALT/SGPT) 16 U/L (12-78) Alkaline Phosphatase 90 U/L (45-117) Total Protein 6.9 gm/dl (6.4-8.2) Albumin 3.2 gm/dl (3.4-5.0) Globulin 3.7 gm/dl (2.5-4.0) Albumin/Globulin Ratio 0.9 (0.9-2) Troponin I 0.026 ng/ml (0-0.045) Assessment and Plan 85-year-old female with h/o of aortic stenosis, blindness, dementia, diastolic CHF presenting with acute confusion found to have UTI. UTI - previous cultures pansensitive (klebsiella, citrobacter, -h/o recurrent UTI -likely contributor to acute change in mental status will discuss with family if mental state back to baseline -Continue IV Levaquin daily Acute Encephalopathy, Dementia -acute encephalopathy in the setting of severe dementia likely secondary to UTI -electrolytes, CBC unremarkable -TSH wnl electrolytes, Glucose unremarkable. -CXR was negative, CT Head was negative. -Given 1L NS in the ED - will add troponin onto todays labs Diastolic CHF, Aortic Stenosis, sinus bradycardia with PACs -stable , asx - Troponin unremarkable - Hold lasix as likely some dehydration with infection and monitor for shortness of breath - will discuss workup for bradycardia with family members as unlikely candidate for a pacemaker if workup supports this - Echo from 05/21/16 * Hyperdynamic left ventricular systolic function. * Left ventricular hypertrophy. * Left ventricular diastolic dysfunction. * Mild left atrial dilatation. * Probable moderate to severe aortic stenosis. * Mild tricuspid regurgitation. * Normal estimated right heart pressures. * EF>70% VTE Prophylaxis - Heparin 500 units Q12H Code - DNR Disposition - Continue stay on med/surg pending discussion with family History Resident Physician Supervision Note: I was present with Dr. Michel during the history and exam. I discussed the case with the resident and agree with the findings and plan as documented in the note. Any exceptions or clarifications are listed here. Pt seen and examined at bedside. Nonverbal but answering yes/no questions appropriately w/ head nodding. Denies pain, vision/hearing changes, CP/SOB, palpitations. General Appearance: no apparent distress Eye Exam: bilateral eye PERRL, bilateral eye EOMI Respiratory: chest non-tender, lungs clear, normal breath sounds, no respiratory distress Cardiovascular: normal peripheral pulses, regular rate, rhythm, systolic murmur (4/6 LATOSHA) Gastrointestinal: normal bowel sounds, soft, no organomegaly, tenderness ( diffusely) Assessment/Plan 85 y/o female h/o dementia, aortic stenosis, blindness, dCHF presents with acute confusion in the setting of UTI Urinary tract infection - continue levofloxacin, f/u UCx Bradycardia - discuss w/ family potential intervention and evaluation Diastolic CHF in setting of aortic stenosis w/ EF > 70% - continue furosemide Resident Tracking Resident Involvement: Resident Care Provided Care Provided: Adult Hospital Medicine
[2017-03-27] MEDS ORDERED: LEVOFLOXACIN / D5W 500 MG in PREMIXED IN D5W 100 ML IV SCH (17:00)
[2017-03-27] MEDS ORDERED: LEVOFLOXACIN / D5W 250 MG in PREMIXED IN D5W 50 ML IV SCH (18:00)
[2017-03-28] VITALS: O2SAT 95
[2017-03-28] MEDS: HEPARIN SOD 5000 UNIT/0.5 ML CARP SQ SCH ×2 (06:22→17:08)
[2017-03-28 07:29] VITALS: BP 123/68; PULSE 53; TEMP 36.6; O2SAT 90
[2017-03-28] MEDS: POTASSIUM CHLORIDE 10 MEQ TABCR PO SCH ×2 (08:23→20:19)
[2017-03-28 15:18] VITALS: BP 92/64; PULSE 66; TEMP 37.5; O2SAT 92
[2017-03-28] MEDS ORDERED: CEPHALEXIN MONOHYDRATE 500 MG CAP PO ONE (16:00)
[2017-03-28] MEDS: CEPHALEXIN MONOHYDRATE 500 MG CAP PO SCH (20:19)
--- NOTE | 2017-03-28 21:01 | Family Medicine Progress Note ---
Progress Note Date of Service Mar 28, 2017. Subjective Pt evaluation today including: conversation w/ patient, conversation w/ family (daughter in law), physical exam, chart review, lab review, review of studies, review of inpatient medication list Patient is verbal this morning. Answering yes and no appropriately to questions. Denies any pain, dizziness or shortness of breath. Disorientated x3. Feels hungry. Additional Comments: Limited ROS given patient's dementia Medications Current Inpatient Medications Medications (Trade) Dose Ordered Sig/Macy Route Start Time Stop Time Status Last Admin Dose Admin Acetaminophen (Tylenol Tab) 650 mg Q4H PRN PO 03/26/17 21:15 04/25/17 21:14 Al Hydrox/Mg Hydrox/Simethicone (Maalox Max Susp) 15 ml Q4H PRN PO 03/26/17 21:15 04/25/17 21:14 Magnesium Hydroxide (Milk Of Magnesia Susp) 30 ml Q6H PRN PO 03/26/17 21:15 04/25/17 21:14 Polyethylene (Miralax Powder Packet) 17 gm DAILY PRN PO 03/26/17 21:15 04/25/17 21:14 Ondansetron HCl (Zofran Inj) 4 mg Q6H PRN IV 03/26/17 21:15 04/25/17 21:14 Heparin Sodium (Porcine) (Heparin Sq 5000 Unit/0.5ml) 5,000 unit Q12H SQ 03/27/17 06:00 04/26/17 05:59 03/28/17 17:08 5,000 UNIT Furosemide (Lasix Tab) 20 mg BID17 PO 03/27/17 08:00 04/26/17 07:59 Future Hold 03/27/17 09:16 20 MG Potassium Chloride (Klor-Con M10) 10 meq BID PO 03/27/17 08:00 04/26/17 07:59 03/28/17 20:19 10 MEQ Miconazole Nitrate (Desenex Powder) 1 appln PRN PRN EXT 03/27/17 04:15 04/26/17 04:14 Cephalexin Monohydrate (Keflex Cap) 500 mg Q12 PO 03/28/17 21:00 04/02/17 20:59 03/28/17 20:19 500 MG Objective Vital Signs Date Time Temp Pulse Resp B/P (MAP) Pulse Ox O2 Delivery O2 Flow Rate FiO2 03/28/17 16:00 Room Air 03/28/17 15:18 37.5 66 20 92/64 (73) 92 Room Air 03/28/17 08:00 Room Air 03/28/17 07:29 36.6 53 18 123/68 (86) 90 Room Air 03/28/17 00:00 95 Room Air 03/27/17 23:33 36.7 39 20 91/53 (66) 93 Room Air Physical Exam General Appearance: no apparent distress, + cachetic Eyes: PERRL, EOMI, + pertinent finding (right sided eye lid drooping compared with left) ENT: + pertinent finding (dry mouth) Respiratory/Chest: normal breath sounds, no respiratory distress, no accessory muscle use Cardiovascular: no JVD, + bradycardia, + systolic murmur (4/6 throughout, loudest in LUSB) Abdomen: normal bowel sounds, soft, + tenderness (says 'oh' everywhere (family reports this is her normal self for years)) Extremities: no pedal edema, no calf tenderness, normal capillary refill Neurologic/Psychiatric: no motor/sensory deficits (grossly moving all 4 limbs on command), alert, + disoriented (x3) Skin: normal color, warm/dry, no rash Assessment and Plan 85-year-old female with h/o of aortic stenosis, blindness, dementia, diastolic CHF presenting with acute confusion found to have UTI. Acute metabolic encephalopathy with underlying severe dementia - likely sec to UTI - mentation back to baseline. - continue supportive care UTI - (E. coli pansensitive) - switch from Levaquin to Keflex - likely contributor to acute change in mental status given rapid resolution in mental state Diastolic CHF, Aortic Stenosis, sinus bradycardia with PACs - Troponin unremarkable - Restart Lasix at home dose - asymptomatic bradycardia as per family and do not wish to work this up further Known h/o aspiration - comfort feeding VTE Prophylaxis - Heparin 5000 units Q12H Code - DNR Disposition - ? home in am with services. Resident Tracking Resident Involvement: Resident Care Provided Care Provided: Adult Hospital Medicine Reviewed: Pt Seen/Exam by Me History comfortable in bed. non-verbal - unable to get any history. per nursing - chokes with food Constitutional: denies: fever General Appearance: no apparent distress Respiratory: lungs clear, no respiratory distress Cardiovascular: regular rate, rhythm Neurologic/Psychiatric: other (somnolent but arousable) Assessment/Plan Resident Physician Supervision Note: I independently interviewed and examined the patient and verified the bobby history and physical, reviewed labs and image studies, discussed the case with the resident and agree with the findings and care plan.
[2017-03-28 23:34] VITALS: BP 126/54; PULSE 59; TEMP 36.3; O2SAT 94
[2017-03-29] VITALS: O2SAT 95
[2017-03-29] MEDS: HEPARIN SOD 5000 UNIT/0.5 ML CARP SQ SCH ×2 (06:29→18:17)
[2017-03-29 07:02] VITALS: BP 132/64; PULSE 47; TEMP 36.6; O2SAT 92
[2017-03-29] MEDS ORDERED: LACTATED RINGER'S 1000ML 1,000 ML IV SCH (11:00)
[2017-03-29] MEDS ORDERED: NURSING VERBAL MED ORDER ONE (11:30)
[2017-03-29] MEDS: CEPHALEXIN MONOHYDRATE 500 MG CAP PO SCH ×2 (12:15→21:10)
[2017-03-29] MEDS: POTASSIUM CHLORIDE 10 MEQ TABCR PO SCH ×2 (12:16→21:10)
[2017-03-29 15:05] VITALS: BP 146/63; PULSE 51; TEMP 37.4; O2SAT 91
[2017-03-29 16:00] VITALS: O2SAT 94
[2017-03-29] MEDS: MICONAZOLE NITRATE POWDER 43 GM EXT PRN (21:21)
[2017-03-29 23:26] VITALS: BP 163/64; PULSE 57; TEMP 36.5; O2SAT 91
[2017-03-30] MEDS: HEPARIN SOD 5000 UNIT/0.5 ML CARP SQ SCH (05:59)
[2017-03-30 06:39] LABS: HEMATOCRIT 42.9 % (37-47); MEAN CELL VOLUME 88.1 fL (80-100); MEAN CORPUSCULAR HEMOGLOBIN 28.7 pg (25-34); MEAN CORPUSCULAR HGB CONC 32.6 g/dl (32-36); MEAN PLATELET VOLUME 11.5 fL (7.4-10.4); PLATELET COUNT 232 K/uL (130-400); RED CELL DISTRIBUTION WIDTH CV 16.4 % (11.5-14.5); RED CELL DISTRIBUTION WIDTH SD 53.2 fL (36.4-46.3); WHITE BLOOD COUNT 9.46 K/uL (4.8-10.8)
[2017-03-30 07:10] VITALS: BP 119/61; PULSE 41; TEMP 37.2; O2SAT 97
[2017-03-30] MEDS: POTASSIUM CHLORIDE 10 MEQ TABCR PO SCH (08:44)
[2017-03-30] MEDS: CEPHALEXIN MONOHYDRATE 500 MG CAP PO SCH (08:44)
[2017-03-30] MEDS: MICONAZOLE NITRATE POWDER 43 GM EXT PRN (08:44)
[2017-03-30 09:06] LABS: CALCIUM 8.5 mg/dl (8.5-10.1); CREATININE 0.94 mg/dl (0.60-1.20)
--- NOTE | 2017-03-30 11:40 | Family Medicine Progress Note ---
Progress Note Date of Service Mar 29, 2017. Subjective Pt evaluation today including: conversation w/ patient, physical exam, chart review, lab review, review of studies, review of inpatient medication list Patient is alert but disorientated x3. NPO awaiting speech evaluation. She denies any pain and can say yes and no appropriately to questions when asked but is slow to respond. Similar to the previous day. Additional Comments: Patient denies any pain, dizziness or shortness of breath Limited ROS due to patient understanding Medications Keflex 500 mg BID K Cl 10 meq PO BID Heparin 5000 units SQ Q12H Objective Vital Signs Temp 36.6 HR 47 (EKG - sinus bradycardia) BP 132/64 RR 18 Sats 92% on room air Physical Exam General Appearance: no apparent distress, + cachetic Eyes: + abnormal sclerae exam (right eyelid droop), + pertinent finding ENT: + pertinent finding (tongue appears very dry) Neck: supple, no JVD Respiratory/Chest: lungs clear (poor inspiratory effort), normal breath sounds , no respiratory distress, no accessory muscle use Cardiovascular: regular rate, rhythm, + systolic murmur (loudest LUSB) Abdomen: normal bowel sounds, soft, + tenderness (at baseline says ouch to pressing anywhere on abdomen and moving in bed) Extremities: no pedal edema, no calf tenderness, normal capillary refill Neurologic/Psychiatric: no motor/sensory deficits (grossly moving all 4 limbs, limited examination due to patient understanding), alert, + disoriented (x3) Skin: normal color, warm/dry, no rash Assessment and Plan 85-year-old female with h/o of aortic stenosis, blindness, dementia, diastolic CHF presenting with acute confusion found to have UTI. Acute metabolic encephalopathy with underlying severe dementia - likely sec to UTI - mentation back to baseline but as per family she is weaker than her normal self - continue supportive care UTI - (E. coli pansensitive) - switch from Levaquin to Keflex - likely contributor to acute change in mental status given rapid resolution in mental state Diastolic CHF, Aortic Stenosis, sinus bradycardia with PACs - Troponin unremarkable - Patient appears dry therefore will hold lasix - asymptomatic bradycardia as per family and do not wish to work this up further Concern for aspiration overnight therefore speech evaluation ordered - Speech eval pending VTE Prophylaxis - Heparin 5000 units Q12H Code - DNR Disposition - Awaiting placement as family is going way. PT this morning Resident Tracking Resident Involvement: Resident Care Provided Care Provided: Adult Hospital Medicine Reviewed: Pt Seen/Exam by Me History no new concerns overnight awaiting placement Constitutional: denies: fever General Appearance: no apparent distress Respiratory: lungs clear, no respiratory distress Cardiovascular: regular rate, rhythm Neurologic/Psychiatric: other (somnolent but easily arousable) Skin Characteristics: warm/dry Assessment/Plan Resident Physician Supervision Note: I independently interviewed and examined the patient and verified the bobby history and physical, reviewed labs and image studies, discussed the case with the resident and agree with the findings and care plan.
--- NOTE | 2017-03-30 11:50 | Family Medicine Progress Note ---
Progress Note Date of Service Mar 30, 2017. Subjective Pt evaluation today including: conversation w/ patient, physical exam, chart review, lab review, review of studies, review of inpatient medication list Voiding: incontinence Patient sleeping in bed this morning with food in her mouth and dry mouth. Woken to voice and trying to swallow food. Does not appear as alert as yesterday but only just woke up. Shakes her head to asking if she has any pain or shortness of breath. Medications Current Inpatient Medications Medications (Trade) Dose Ordered Sig/Macy Route Start Time Stop Time Status Last Admin Dose Admin Acetaminophen (Tylenol Tab) 650 mg Q4H PRN PO 03/26/17 21:15 04/25/17 21:14 Al Hydrox/Mg Hydrox/Simethicone (Maalox Max Susp) 15 ml Q4H PRN PO 03/26/17 21:15 04/25/17 21:14 Magnesium Hydroxide (Milk Of Magnesia Susp) 30 ml Q6H PRN PO 03/26/17 21:15 04/25/17 21:14 Polyethylene (Miralax Powder Packet) 17 gm DAILY PRN PO 03/26/17 21:15 04/25/17 21:14 Ondansetron HCl (Zofran Inj) 4 mg Q6H PRN IV 03/26/17 21:15 04/25/17 21:14 Heparin Sodium (Porcine) (Heparin Sq 5000 Unit/0.5ml) 5,000 unit Q12H SQ 03/27/17 06:00 04/26/17 05:59 03/30/17 05:59 5,000 UNIT Furosemide (Lasix Tab) 20 mg BID17 PO 03/27/17 08:00 04/26/17 07:59 Future Hold 03/27/17 09:16 20 MG Potassium Chloride (Klor-Con M10) 10 meq BID PO 03/27/17 08:00 04/26/17 07:59 03/30/17 08:44 10 MEQ Miconazole Nitrate (Desenex Powder) 1 appln PRN PRN EXT 03/27/17 04:15 04/26/17 04:14 03/30/17 08:44 1 APPLN Cephalexin Monohydrate (Keflex Cap) 500 mg Q12 PO 03/28/17 21:00 04/02/17 20:59 03/30/17 08:44 500 MG Objective Vital Signs Date Time Temp Pulse Resp B/P (MAP) Pulse Ox O2 Delivery O2 Flow Rate FiO2 03/30/17 11:25 Room Air 03/30/17 07:10 37.2 41 18 119/61 (80) 97 Room Air 03/30/17 00:15 Room Air 03/29/17 23:26 36.5 57 20 163/64 (97) 91 Room Air 03/29/17 16:00 94 Room Air 03/29/17 15:05 37.4 51 16 146/63 (90) 91 Room Air Physical Exam General Appearance: no apparent distress, + cachetic ENT: + pertinent finding (dry mucus membranes) Neck: no JVD, trachea midline Respiratory/Chest: lungs clear (poor inspiratory effort), no respiratory distress, no accessory muscle use Cardiovascular: regular rate, rhythm, no edema, + systolic murmur Abdomen: normal bowel sounds, soft, + tenderness (similar) Extremities: no pedal edema, no calf tenderness, normal capillary refill Neurologic/Psychiatric: 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 II-XII nml as tested (no facial droop, right eyelid drooping chronic), no motor/sensory deficits (grossly normal), alert, + disoriented (x3) Skin: normal color, warm/dry, no rash Laboratory Results 03/30/17 06:10 03/30/17 06:13 Test 03/30/17 06:10 03/30/17 06:13 Red Blood Count 4.87 M/uL (4.2-5.4) Mean Corpuscular Volume 88.1 fL (80-100) Mean Corpuscular Hemoglobin 28.7 pg (25-34) Mean Corpuscular Hemoglobin Concent 32.6 g/dl (32-36) RDW Standard Deviation 53.2 fL (36.4-46.3) RDW Coefficient of Variation 16.4 % (11.5-14.5) Mean Platelet Volume 11.5 fL (7.4-10.4) Anion Gap 6.0 mmol/L (3-11) Est Creatinine Clear Calc Drug Dose 33.3 ml/min Estimated GFR () 62.8 Estimated GFR (Non- 54.2 BUN/Creatinine Ratio 20.0 (10-20) Calcium Level 8.5 mg/dl (8.5-10.1) Chemistry Specimen Hemolysis Assessment and Plan 85-year-old female with h/o of moderate-severe aortic stenosis, blindness, dementia, diastolic CHF presenting with acute confusion found to have UTI. Acute metabolic encephalopathy with underlying severe dementia - likely sec to UTI - as she appear worse this morning and unclear fluid status since BUN has increased and appears dry on examination but she is usually taking lasix which I stopped for the past few days we will get a CXR to better assess and also look for any aspiration pneumonia - KUB to assess for fecal load / obstruction as no bowel movement since admission UTI - (E. coli pansensitive) - Continue Keflex for total course of 7 days - likely contributor to acute change in mental status given rapid resolution in mental state Diastolic CHF, Aortic Stenosis, sinus bradycardia with PACs - Troponin unremarkable - Continue to hold Lasix as clinically appears dry and not short of breath however will obtain CXR as above to better assess - asymptomatic bradycardia as per family and do not wish to work this up further Risk of aspiraiton - CXR as above to also make sure no aspiration pneumonia - appreciate speech evaluation - soft moist diet ordered VTE Prophylaxis - Heparin 5000 units Q12H Code - DNR Disposition - Awaiting placement as family is going way. Continue PT if patient participates Resident Tracking Resident Involvement: Resident Care Provided Care Provided: Adult Hospital Medicine Reviewed: Pt Seen/Exam by Me History more alert today sitting upright and being fed by nurse unable to have any purposeful conversation Constitutional: denies: fever General Appearance: no apparent distress Respiratory: no respiratory distress, decreased breath sounds (base) Cardiovascular: regular rate, rhythm Neurologic/Psychiatric: alert Skin Characteristics: warm/dry Assessment/Plan Resident Physician Supervision Note: I independently interviewed and examined the patient and verified the bobby history and physical, reviewed labs and image studies, discussed the case with the resident and agree with the findings and care plan.
--- NOTE | 2017-03-30 12:29 | DIAGNOSTIC IMAGING REPORT ---
KUB CLINICAL HISTORY: ?obstruction ?fecal impaction pain COMPARISON STUDY: No previous studies for comparison. FINDINGS: Nonobstructive bowel pattern. Mild rectal fecal impaction. Degenerative change of the hips as well as lumbar spine and sacroiliac joints. IMPRESSION: Mild fecal impaction. Nonobstructive bowel pattern. The above report was generated using voice recognition software. It may contain grammatical, syntax or spelling errors. Electronically signed by: Dilshad Rockwell M.D. 03/30/2017 12:28 PM Dictated Date/Time: 03/30/2017 12:27 PM
--- NOTE | 2017-03-30 12:35 | DIAGNOSTIC IMAGING REPORT ---
CHEST ONE VIEW PORTABLE CLINICAL HISTORY: shortness of breath dyspnea COMPARISON STUDY: 03/26/2017 FINDINGS: Mild stable cardiomegaly. Lungs are clear. Diaphragms are smooth. Post right shoulder arthroplasty. IMPRESSION: Mild stable cardiomegaly. No acute process. The above report was generated using voice recognition software. It may contain grammatical, syntax or spelling errors. Electronically signed by: Dilshad Rockwell M.D. 03/30/2017 12:34 PM Dictated Date/Time: 03/30/2017 12:33 PM
[2017-03-30] MEDS ORDERED: FURO-85 PO (12:44)
[2017-03-30] MEDS ORDERED: CEPH500C2 PO (12:44)
--- NOTE | 2017-03-30 12:54 | Discharge Instructions ---
Discharge Instructions Date of Service Mar 30, 2017. Admission Reason for Admission: Acute Encephalopathy, Uti Discharge Discharge Diagnosis / Problem: Urine Tract Infection, Altered Mental State Discharge Goals Goal(s): Improve function Activity Recommendations Activity Limitations: resume your previous activity . Instructions / Follow-Up Instructions / Follow-Up Mrs Guallpa is a 86 year old female who was admitted to [facility] from to 30 March for altered mental state and urine tract infection. Her urine grew pansensitive E. Coli which was treated with levaquin and then Keflex. She appeared to improve by the following day as per family members however is not yet back to her baseline functioning. CT head showed nothing acute. She should complete the course of keflex as prescribed. She has moderate-severe aortic stenosis and usually takes lasix 20mg PO BID however this was held as she appeared dry due to the ongoing infection. This can be started after discharge at half the normal dose (20 mg daily) but she should be monitored for pulmonary edema (increasing shortness of breath and oxygen requirement). CXR on day of discharge did not show any sign of developing pulmonary edema. In addition she has not had a bowel movement while in hospital. She was given a miralax dose on day of discharge. This should too be monitored and treated accordingly. She chronic says 'oh' or 'ouch' when pressing on her abdomen (or anywhere else) as per her family. KUB was performed an no sign of obstruction and she patient is eating well without nausea or vomiting. She underwent a speech evaluation due to risk of aspiration and advised a soft moist diet with aspiration precautions while she eats ie. sit up at 90 degrees, no straws. Of note her heart rate runs low. EKG shows sinus bradycardia without sign of heart block. She remains asymptomatic during these times and can go into the 40s while sleeping. This was discussed with her POA son Vladimir including telemetry, loop recorder workup however given her overall prognosis and unlikely pacemaker candidate this was not thought to be in her best interests. Current Hospital Diet Patient's current hospital diet: AHA Diet (Heart Healthy) Discharge Diet Recommended Diet: Regular Diet Fluid Restriction: None Pending Studies Studies pending at discharge: no Medical Emergencies . Who to Call and When: Medical Emergencies: If at any time you feel your situation is an emergency, please call 911 immediately. . Non-Emergent Contact Non-Emergency issues call your: Primary Care Provider . . "Provider Documentation" section prepared by Luis Fernando Michel. . VTE Core Measure Inpt VTE Proph given/why not?: Unfractionated heparin SQ
[2017-03-30] MEDS ORDERED: POLYETHYLENE (MIRALAX) 17 GM PACK PO ONE (13:00)
[2017-03-30 13:26] VITALS: BP 119/61; PULSE 41; TEMP 37.2; O2SAT 97
--- NOTE | 2017-03-30 15:33 | Discharge Summary ---
Discharge Summary Date of Service Mar 30, 2017. Discharge Summary Admission Date: Mar 26, 2017 at 21:39 Discharge Date: Mar 30, 2017 Discharge Disposition: senior living facility Principal Diagnosis: Metabolic encephalopathy secondary to Urine tract infection Medication Reconciliation New Medications: Cephalexin Monohydrate (Keflex) 500 Mg Cap 500 MG PO BID for 3 Days, CAP Changed Medications: Furosemide (Lasix) 20 Mg Tab 20 MG PO DAILY for 30 Days (Changed from: BID; Removed Instructions) Continued Medications: Loratadine (Claritin) 10 Mg Tab 10 MG PO QAM, TAB Methenamine Hippurate (Hiprex) 1 Gm Tab 1 GM PO BID Potassium Chloride (Micro-K Ext Rel) 10 Meq Capcr 10 MEQ PO BID, CAP Discharge Exam Patient appears more alert than earlier in the day and since being here has waxed and waned with her alertness depending on the time of day. She did well with physical therapy the previous day. ROS: limited due to patient understanding. Denies any chest pain, dizziness or shortness of breath Physical Exam: General Appearance: no apparent distress Eyes: normal inspection (pupils equal), + pertinent finding (mild drooping of right eye lid) Neck: trachea midline Respiratory/Chest: normal breath sounds, no respiratory distress, no accessory muscle use Cardiovascular: regular rate, rhythm, normal peripheral pulses, + systolic murmur (known mod-severe aortic stenosis) Abdomen / GI: + tenderness (baseline tenderness as per family, (XR KUB showed mild fecal load)) Extremities: normal capillary refill, no pedal edema Neurologic/Psychiatric: alert, + disoriented (x3) Skin: normal color, warm/dry, no rash Hospital Course 85-year-old female with h/o of moderate-severe aortic stenosis, blindness, dementia, diastolic CHF presenting with acute confusion found to have UTI. Acute metabolic encephalopathy with underlying severe dementia - secondary to UTI given rapid resolution with antibiotics UTI - (E. coli pansensitive) - Continue Keflex for total course of 7 days Diastolic CHF, Aortic Stenosis, sinus bradycardia with PACs - Troponin unremarkable - Can resume lasix 20mg on discharge (on 20mg BID @ home) but held as she has appeared clinically dry - asymptomatic bradycardia dsicussed with family and do not wish to work this up further Risk of aspiration - CXR normal today - appreciate speech evaluation - soft moist diet ordered Code - DNR Total Time Spent: Greater than 30 minutes This includes examination of the patient, discharge planning, medication reconciliation, and communication with other providers. Discharge Instructions Please refer to the electronic Patient Visit Report (Discharge Instructions) for additional information. Follow-Up Follow up with physicians @ [facility] Additional Copies To Alyx Mahmood C.R.N.P; Susan Reviewed: Pt Seen/Exam by Me History alert this am. being fed by nursing. Constitutional: denies: fever Respiratory: negative: short of breath Cardiovascular: denies chest pain General Appearance: no apparent distress Respiratory: no respiratory distress, decreased breath sounds Cardiovascular: regular rate, rhythm Neurologic/Psychiatric: alert Skin Characteristics: warm/dry Assessment/Plan Resident Physician Supervision Note: I independently interviewed and examined the patient and verified the bobby history and physical, reviewed labs and image studies, discussed the case with the resident and agree with the findings and care plan. Time spent in discharge 40 min
== END 2017-03-30 14:11 | DRG 689 ==
LOC: C.EDB 16:16 → C.4E 21:39 → ENRESERV 21:49
PROVIDERS: ADMIT Internal Medicine; ATTEND Family Medicine
DX: N39.0 Urinary tract infection, site not specified (principal); G93.41 Metabolic encephalopathy; I50.30 Unspecified diastolic (congestive) heart failure; R32 Unspecified urinary incontinence; F03.90 Unspecified dementia, unspecified severity, without behavioral disturbance, psychotic disturbance, mood disturbance, and anxiety; I35.0 Nonrheumatic aortic (valve) stenosis; B96.20 Unspecified Escherichia coli [E. coli] as the cause of diseases classified elsewhere; Z66 Do not resuscitate; Z79.899 Other long term (current) drug therapy; Z88.0 Allergy status to penicillin

== ENCOUNTER → 2017-04-20 | Outpatient (CLI) | payer OTHER ==
[~2017-04-20] MED LIST changes: -BCTCR/30 TOP; -CIPR1TAB10 PO; +CLR10 PO; +METH-1117 PO
== END | disposition home or self-care (01) ==
LOC: C.LABSPEC 09:40
PROVIDERS: ATTEND Physician Assistant
DX: G93.41 Metabolic encephalopathy (principal); A41.51 Sepsis due to Escherichia coli [E. coli]; F03.90 Unspecified dementia, unspecified severity, without behavioral disturbance, psychotic disturbance, mood disturbance, and anxiety

== ENCOUNTER → 2017-04-27 | Outpatient (CLI) | payer OTHER ==
[2017-04-27 08:43] LABS: HEMATOCRIT 41.8 % (37-47); HEMOGLOBIN 13.5 g/dL (12.0-16.0); MEAN CELL VOLUME 87.1 fL (80-100); MEAN CORPUSCULAR HEMOGLOBIN 28.1 pg (25-34); MEAN CORPUSCULAR HGB CONC 32.3 g/dl (32-36); MEAN PLATELET VOLUME 11.2 fL (7.4-10.4); PLATELET COUNT 245 K/uL (130-400); RED CELL DISTRIBUTION WIDTH CV 15.8 % (11.5-14.5); RED CELL DISTRIBUTION WIDTH SD 50.6 fL (36.4-46.3); WHITE BLOOD COUNT 5.59 K/uL (4.8-10.8)
[2017-04-27 08:46] LABS: BLOOD UREA NITROGEN 12 mg/dl (7-18); CALCIUM 8.5 mg/dl (8.5-10.1); CARBON DIOXIDE 28 mmol/L (21-32); GLUCOSE 84 mg/dl (70-99); POTASSIUM 4.1 mmol/L (3.5-5.1); SODIUM 140 mmol/L (136-145)
== END | disposition home or self-care (01) ==
LOC: C.LABSPEC 08:08
PROVIDERS: ATTEND Nurse Practitioner Adult Health
DX: I10 Essential (primary) hypertension (principal)

== ENCOUNTER → 2017-05-11 | Outpatient (CLI) | payer OTHER | END | disposition home or self-care (01) | LOC: C.LABSPEC 07:38 | PROVIDERS: ATTEND Internal Medicine | DX: R00.1 Bradycardia, unspecified (principal); I50.9 Heart failure, unspecified ==

== ENCOUNTER → 2017-06-01 | Outpatient (CLI) | payer OTHER ==
[2017-06-01 10:39] LABS: HEMOGLOBIN 14.4 g/dL (12.0-16.0); MEAN CORPUSCULAR HEMOGLOBIN 27.2 pg (25-34); MEAN CORPUSCULAR HGB CONC 31.3 g/dl (32-36); PLATELET COUNT 310 K/uL (130-400); RED CELL DISTRIBUTION WIDTH CV 16.2 % (11.5-14.5); RED CELL DISTRIBUTION WIDTH SD 51.3 fL (36.4-46.3); WHITE BLOOD COUNT 6.18 K/uL (4.8-10.8)
== END | disposition home or self-care (01) ==
LOC: C.LABSPEC 10:06
PROVIDERS: ATTEND Nurse Practitioner Adult Health
DX: R05 Cough (principal)

== ENCOUNTER → 2017-08-03 | Outpatient (CLI) | payer OTHER ==
[2017-08-03 09:25] LABS: HEMATOCRIT 41.8 % (37-47); HEMOGLOBIN 13.2 g/dL (12.0-16.0); MEAN CELL VOLUME 87.3 fL (80-100); MEAN CORPUSCULAR HEMOGLOBIN 27.6 pg (25-34); MEAN CORPUSCULAR HGB CONC 31.6 g/dl (32-36); MEAN PLATELET VOLUME 10.8 fL (7.4-10.4); PLATELET COUNT 243 K/uL (130-400); RED CELL DISTRIBUTION WIDTH CV 17.9 % (11.5-14.5); RED CELL DISTRIBUTION WIDTH SD 57.4 fL (36.4-46.3); WHITE BLOOD COUNT 6.66 K/uL (4.8-10.8)
[2017-08-03 09:31] LABS: BLOOD UREA NITROGEN 19 mg/dl (7-18); CALCIUM 7.8 mg/dl (8.5-10.1); CARBON DIOXIDE 30 mmol/L (21-32); CREATININE 1.03 mg/dl (0.60-1.20); GLUCOSE 108 mg/dl (70-99); POTASSIUM 3.9 mmol/L (3.5-5.1); SODIUM 143 mmol/L (136-145); URIC ACID 4.5 mg/dl (2.6-7.2)
== END | disposition home or self-care (01) ==
LOC: C.LABSPEC 08:41
PROVIDERS: ATTEND Nurse Practitioner Adult Health
DX: R60.9 Edema, unspecified (principal); R52 Pain, unspecified